=== PATIENT | male | born 1955 | race Caucasian/White ===

== ENCOUNTER 2017-01-18 21:05 | Emergency (ER) | payer MEDICARE, OTHER ==
[2017-01-18 21:20] VITALS: BP 129/87
[2017-01-18] MEDS ORDERED: Sodium Chloride 0.9% 1,000 ML IV SCH (21:30)
[2017-01-18] MEDS ORDERED: HYDROmorphone 1 MG/ML Syringe IVPUSH ONE (21:30)
--- NOTE | 2017-01-18 22:01 | EDM.PDOC ---
ED HPI GENERAL MEDICAL PROBLEM - General Chief Complaint: Abdominal Pain Stated Complaint: ABD PAIN Time Seen by Provider: 01/18/17 21:25 Source of Information: Reports: Patient, Family History Limitations: Reports: No Limitations - History of Present Illness INITIAL COMMENTS - FREE TEXT/NARRATIVE: 61-year-old male with chronic recurring abdominal pain was seen in the clinic today and placed on amoxicillin for "bronchitis". After taking his first dose his abdominal pain worsened. It is very localized to the epigastric area. Nausea but no vomiting, no fevers or chills, no shortness of breath. He has had numerous extensive workups for abdominal pain and had been negative. Onset: Gradual (Over the past several days) Location: Reports: Abdomen Quality: Reports: Pressure, Sharp Severity: Moderate Worsens with: Reports: Other (Seems to be worse after taking a dose of amoxicillin) Associated Symptoms: Denies: Fever/Chills Upper Epigastric Pain Score (Numeric/FACES): 10 - Related Data Allergies Allergy/AdvReac Type Severity Reaction Status Date / Time doxycycline AdvReac Nausea and Verified 01/18/17 22:26 Vomiting Home Meds: Home Meds Clopidogrel [Plavix] 75 mg PO DAILY 04/16/15 [History] Escitalopram [Lexapro] 10 mg PO DAILY 04/16/15 [History] Lisinopril 10 mg PO DAILY 04/16/15 [History] Metoprolol Succinate [Toprol XL] 50 mg PO DAILY 04/16/15 [History] Nitroglycerin [Nitrostat] 0.4 mg SL ASDIRECTED 04/16/15 [History] Simvastatin [Zocor] 40 mg PO DAILY 04/16/15 [History] Ondansetron [Zofran ODT] 4 mg PO Q6H PRN #10 tab.dis 07/23/16 [Rx] Amoxicillin/Clavulanate K [Augmentin 875-125 MG] 1 tab PO BID 01/18/17 [History] Past Medical History Other HEENT History: tinnitus Cardiovascular History: Reports: Hypertension, [place], Stents Other Gastrointestinal History: Abd pain - unkown etiology- related to eating started in 80s started with salad bar, little blood when poops occasionally Musculoskeletal History: Reports: Fracture Other Musculoskeletal History: wrist Neurological History: Reports: CVA Other Neuro History: cerebroangioplasty with stent Other Psychiatric History: smokes, uses pot - Infectious Disease History Infectious Disease History: Reports: Chicken Pox - Past Surgical History Cardiovascular Surgical History: Reports: Coronary Artery Stent Social & Family History - Tobacco Use Smoking Status *Q: Current Every Day Smoker Years of Tobacco use: 40 Packs/Tins Daily: 0.5 Used Tobacco, but Quit: No Second Hand Smoke Exposure: Yes - Caffeine Use Caffeine Use: Reports: None - Alcohol Use Days Per Week of Alcohol Use: 0 - Recreational Drug Use Recreational Drug Use: No Drug Use in Last 12 Months: No Recreational Drug Type: Reports: Marijuana/Hashish Recreational Drug Use Frequency: Monthly ED ROS GENERAL - Review of Systems Review Of Systems: See Below Constitutional: Reports: Malaise. Denies: Fever, Chills Respiratory: Reports: Cough Cardiovascular: Denies: Chest Pain GI/Abdominal: Reports: Abdominal Pain, Nausea. Denies: Diarrhea, Vomiting : Reports: No Symptoms Musculoskeletal: Reports: No Symptoms Skin: Reports: No Symptoms Neurological: Denies: Dizziness, Headache ED EXAM, GI/ABD - Physical Exam Exam: See Below Exam Limited By: No Limitations General Appearance: Alert, Anxious Eyes: Bilateral: Normal Appearance Respiratory/Chest: No Respiratory Distress, Lungs Clear Cardiovascular: Regular Rate, Rhythm GI/Abdominal: Soft, Tenderness (Tenderness with some slight guarding in the epigastric area. Patient does seem hyperdramatic.) Course - Vital Signs Last Recorded V/S: Last Vital Signs Temp 97.9 F 01/18/17 22:27 Pulse 65 01/18/17 22:27 Resp 20 01/18/17 22:27 BP 129/87 01/18/17 22:27 Pulse Ox 94 L 01/18/17 22:27 - Orders/Labs/Meds Orders: Active Orders 24 hr Category Date Time Status Sodium Chloride 0.9% [Normal Saline] 1,000 ml Med 01/18/17 21:30 Active IV ASDIRECTED Medication Orders Sodium Chloride (Normal Saline) 1,000 mls @ 1,000 mls/hr IV ASDIRECTED AVRIL Last Admin: 01/18/17 21:35 Dose: 1,000 mls/hr Labs: Laboratory Tests 01/18/17 01/18/17 Range/Units 21:40 21:40 WBC 19.9 H (4.5-11.0) K/uL RBC 5.56 (4.30-5.90) M/uL Hgb 17.9 H (12.0-15.0) g/dL Hct 51.2 (40.0-54.0) % MCV 92 (80-98) fL MCH 32 H (27-31) pg MCHC 35 (32-36) % Plt Count 276 (150-400) K/uL Neut % (Auto) 91 H (36-66) % Lymph % (Auto) 5 L (24-44) % [place] % (Auto) 3 (2-6) % Eos % (Auto) 0 L (2-4) % Baso % (Auto) 0 (0-1) % Sodium 132 L (140-148) mmol/L Potassium 4.5 (3.6-5.2) mmol/L Chloride 97 L (100-108) mmol/L Carbon Dioxide 19 L (21-32) mmol/L Anion Gap 16.0 H (5.0-14.0) mmol/L BUN 54 H D (7-18) mg/dL Creatinine 3.0 H D (0.8-1.3) mg/dL Est Cr Clr Drug Dosing 27.38 mL/min Estimated GFR (MDRD) 22 L (>60) Glucose 196 H (74-106) mg/dL Calcium 9.8 (8.5-10.1) mg/dL Total Bilirubin 0.6 (0.2-1.0) mg/dL AST 25 (15-37) U/L ALT 32 (12-78) U/L Alkaline Phosphatase 72 (46-116) U/L Total Protein 9.6 H (6.4-8.2) g/dL Albumin 4.9 (3.4-5.0) g/dL Globulin 4.7 H (2.3-3.5) g/dL Albumin/Globulin Ratio 1.0 L (1.2-2.2) Amylase 50 (25-115) U/L Lipase 104 (73-393) U/L Meds: Medications Generic Name Dose Route Start Last Admin Trade Name Freq PRN Reason Stop Dose Admin Sodium Chloride 1,000 mls @ 1,000 mls/hr 01/18/17 21:30 01/18/17 21:35 Normal Saline IV 1,000 mls/hr ASDIRECTED AVRIL Administration Discontinued Medications Generic Name Dose Route Start Last Admin Trade Name Freq PRN Reason Stop Dose Admin Hydromorphone HCl 1 mg 01/18/17 21:30 01/18/17 21:39 Dilaudid IVPUSH 01/18/17 21:31 1 mg ONETIME ONE Administration - Re-Assessments/Exams Free Text/Narrative Re-Assessment/Exam: 01/18/17 22:00 An IV was started for a 1 L bolus of normal saline, patient was given 0.5 mg of Dilaudid IV. CBC, CMP, amylase and lipase were obtained. 01/18/17 23:25 After the IV fluid and Dilaudid for pain resolved. His white count is elevated at 19,000 but the clinic level this morning was 24,000. Creatinine was 3.0 and GFR 22. Past renal function has been normal. He was discharged with instructions to call his primary provider tomorrow to ask whether it was necessary to continue the Augmentin. I also think he should push fluids and recheck his kidney function in 2-4 days. He can return sooner if worsening. Departure - Departure Time of Disposition: 23:25 Disposition: Home, Self-Care 01 Condition: good Clinical Impression: Abdominal pain Qualifiers: Abdominal location: epigastric Qualified Code(s): R10.13 - Epigastric pain - Discharge Information Instructions: Abdominal Pain, Adult, [id number] Referrals: Tashi Person PA [Primary Care Provider] - Forms: ED Department Discharge Care Plan Goals: Call the clinic tomorrow morning to discuss with your primary provider whether to continue the antibiotics. Drink lots of water and he will probably need reevaluation of your kidney function later this week. That can be also set up with her primary provider. Return to ER if worsening or concerns. - My Orders Last 24 Hours: My Active Orders 01/18/17 21:30 Sodium Chloride 0.9% [Normal Saline] 1,000 ml IV ASDIRECTED - Assessment/Plan Last 24 Hours: My Active Orders 01/18/17 21:30 Sodium Chloride 0.9% [Normal Saline] 1,000 ml IV ASDIRECTED
== END 2017-01-18 23:25 | disposition home or self-care (01) ==
LOC: JP.ED 21:05
DX: R10.13 Epigastric pain (principal); I25.2 Old myocardial infarction; I10 Essential (primary) hypertension; F17.210 Nicotine dependence, cigarettes, uncomplicated; Z95.5 Presence of coronary angioplasty implant and graft; Z88.1 Allergy status to other antibiotic agents; Z79.02 Long term (current) use of antithrombotics/antiplatelets; Z79.899 Other long term (current) drug therapy
CPT/HCPCS: 36415; 80053; 82150; 83690; 85025; 96361; 96374; 99284; J1170; J7040

== ENCOUNTER 2017-01-19 10:34 | Emergency (ER) | payer MEDICARE, OTHER ==
[2017-01-19] MEDS ORDERED: Lactated Ringers 1,000 ML IV ONE (10:42)
[2017-01-19] MEDS ORDERED: HYDROmorphone 1 MG/ML Syringe IVPUSH ONE (10:42)
[2017-01-19] MEDS ORDERED: Sodium Chloride 0.9% 10 ML Syringe FLUSH PRN (10:44)
[2017-01-19] MEDS ORDERED: Ondansetron 4 MG/2 ML SDV IVPUSH ONE (10:44)
--- NOTE | 2017-01-19 11:44 | EDM.PDOC ---
[id number] Complaint: Abdominal Pain Stated Complaint: ABDOMINAL PAIN Time Seen by Provider: 01/19/17 10:44 Source of Information: Reports: Patient, Family, Old Records, RN Notes Reviewed History Limitations: Reports: No Limitations - History of Present Illness INITIAL COMMENTS - FREE TEXT/NARRATIVE: 61-year-old gentleman presents emergency department day complaint of epigastric pain, he states the pain come on suddenly at 5:00 this morning. He also complains of shortness of breath. he states he was into his primary care provider complaints of chest congestion and shortness of breath concern for development of pneumonia does have a smoking history. Was started on Augmentin took one dose of Augmentin developed severe epigastric pain reported to the emergency department last night underwent blood work received 1 mg of Dilaudid and became pain-free. For this particular event he returns for the same pain Epigastric Pain Score (Numeric/FACES): 9 - Related Data Allergies Allergy/AdvReac Type Severity Reaction Status Date / Time doxycycline AdvReac Nausea and Verified 01/18/17 22:26 Vomiting Home Meds: Home Meds Clopidogrel [Plavix] 75 mg PO DAILY 04/16/15 [History] Escitalopram [Lexapro] 10 mg PO DAILY 04/16/15 [History] Lisinopril 10 mg PO DAILY 04/16/15 [History] Metoprolol Succinate [Toprol XL] 50 mg PO DAILY 04/16/15 [History] Nitroglycerin [Nitrostat] 0.4 mg SL ASDIRECTED 04/16/15 [History] Simvastatin [Zocor] 40 mg PO DAILY 04/16/15 [History] Ondansetron [Zofran ODT] 4 mg PO Q6H PRN #10 tab.dis 07/23/16 [Rx] Levofloxacin [Levaquin] 500 mg PO DAILY 01/20/17 [History] oxyCODONE HCl/Acetaminophen [oxyCODONE-Acetaminophen 5-325] 1 tab PO Q6HR PRN [History] Pantoprazole Sodium [Protonix] 40 mg PO BID #30 tablet. 01/22/17 [Rx] Past Medical History Other HEENT History: tinnitus Cardiovascular History: Reports: Hypertension, [place], Stents Other Gastrointestinal History: Abd pain - unkown etiology- related to eating started in 80s started with salad bar, little blood when poops occasionally Musculoskeletal History: Reports: Fracture Other Musculoskeletal History: wrist Neurological History: Reports: CVA Other Neuro History: cerebroangioplasty with stent Psychiatric History: Reports: Anxiety Other Psychiatric History: smokes, uses pot - Infectious Disease History Infectious Disease History: Reports: Chicken Pox, Measles, Mumps - Past Surgical History Cardiovascular Surgical History: Reports: Coronary Artery Stent Social & Family History - Tobacco Use Smoking Status *Q: Current Every Day Smoker Years of Tobacco use: 40 Packs/Tins Daily: 0.3 Used Tobacco, but Quit: No Second Hand Smoke Exposure: Yes - Caffeine Use Caffeine Use: Reports: Coffee - Alcohol Use Days Per Week of Alcohol Use: 1 Number of Drinks Per Day: 2 Total Drinks Per Week: 2 - Recreational Drug Use Recreational Drug Use: No Drug Use in Last 12 Months: No Recreational Drug Type: Reports: Marijuana/Hashish Recreational Drug Use Frequency: Monthly ED ROS GENERAL - Review of Systems Review Of Systems: See Below Constitutional: Reports: No Symptoms HEENT: Reports: No Symptoms Respiratory: Reports: Shortness of Breath Cardiovascular: Reports: No Symptoms GI/Abdominal: Reports: Abdominal Pain. Denies: Nausea, Vomiting : Reports: No Symptoms Musculoskeletal: Reports: No Symptoms Skin: Reports: No Symptoms Neurological: Reports: No Symptoms ED EXAM, GI/ABD - Physical Exam Exam: See Below Exam Limited By: No Limitations General Appearance: Alert, WD/WN, No Apparent Distress Head: Atraumatic, Normocephalic Neck: Normal Inspection, Supple, Non-Tender, Full Range of Motion Respiratory/Chest: No Respiratory Distress, No Accessory Muscle Use, Chest Non- Tender, Rhonchi Cardiovascular: Regular Rate, Rhythm, No Murmur GI/Abdominal: Soft, Tenderness Course - Vital Signs Last Recorded V/S: Last Vital Signs Temp 36.3 C 01/19/17 14:18 Pulse 66 01/19/17 17:07 Resp 16 01/19/17 17:07 BP 105/66 01/19/17 17:07 Pulse Ox 93 L 01/19/17 17:07 - Orders/Labs/Meds Labs: Laboratory Tests 01/19/17 01/19/17 01/19/17 Range/Units 10:58 10:58 10:58 WBC (4.5-11.0) K/uL RBC (4.30-5.90) M/uL Hgb (12.0-15.0) g/dL Hct (40.0-54.0) % MCV (80-98) fL MCH (27-31) pg MCHC (32-36) % Plt Count (150-400) K/uL Neut % (Auto) (36-66) % Lymph % (Auto) (24-44) % [place] % (Auto) (2-6) % Eos % (Auto) (2-4) % Baso % (Auto) (0-1) % Sodium 132 L (140-148) mmol/L Potassium 3.9 (3.6-5.2) mmol/L Chloride 99 L (100-108) mmol/L Carbon Dioxide 17 L (21-32) mmol/L Anion Gap 19.9 H (5.0-14.0) mmol/L BUN 46 H (7-18) mg/dL Creatinine 1.6 H (0.8-1.3) mg/dL Est Cr Clr Drug Dosing 51.45 mL/min Estimated GFR (MDRD) 44 L (>60) Glucose 135 H (74-106) mg/dL Lactic Acid 1.9 (0.4-2.0) mmol/L Calcium 9.1 (8.5-10.1) mg/dL Total Bilirubin 0.6 (0.2-1.0) mg/dL AST 25 (15-37) U/L ALT 28 (12-78) U/L Alkaline Phosphatase 61 (46-116) U/L Troponin I (0.000-0.056) ng/mL [id number] Pept (5-125) pg/mL Total Protein 8.5 H (6.4-8.2) g/dL Albumin 4.2 (3.4-5.0) g/dL Globulin 4.3 H (2.3-3.5) g/dL Albumin/Globulin Ratio 1.0 L (1.2-2.2) Lipase 99 (73-393) U/L 01/19/17 01/19/17 01/19/17 Range/Units 10:58 11:34 11:40 WBC 23.3 H (4.5-11.0) K/uL RBC 5.31 (4.30-5.90) M/uL Hgb 17.4 H (12.0-15.0) g/dL Hct 49.2 (40.0-54.0) % MCV 93 (80-98) fL MCH 33 H (27-31) pg MCHC 35 (32-36) % Plt Count 251 (150-400) K/uL Neut % (Auto) 81 H (36-66) % Lymph % (Auto) 9 L (24-44) % [place] % (Auto) 10 H (2-6) % Eos % (Auto) 0 L (2-4) % Baso % (Auto) 1 (0-1) % Sodium (140-148) mmol/L Potassium (3.6-5.2) mmol/L Chloride (100-108) mmol/L Carbon Dioxide (21-32) mmol/L Anion Gap (5.0-14.0) mmol/L BUN (7-18) mg/dL Creatinine (0.8-1.3) mg/dL Est Cr Clr Drug Dosing mL/min Estimated GFR (MDRD) (>60) Glucose (74-106) mg/dL Lactic Acid (0.4-2.0) mmol/L Calcium (8.5-10.1) mg/dL Total Bilirubin (0.2-1.0) mg/dL AST (15-37) U/L ALT (12-78) U/L Alkaline Phosphatase (46-116) U/L Troponin I < 0.017 (0.000-0.056) ng/mL [id number] Pept 642 H (5-125) pg/mL Total Protein (6.4-8.2) g/dL Albumin (3.4-5.0) g/dL Globulin (2.3-3.5) g/dL Albumin/Globulin Ratio (1.2-2.2) Lipase (73-393) U/L Meds: Medications Discontinued Medications Generic Name Dose Route Start Last Admin Trade Name Freq PRN Reason Stop Dose Admin Hydromorphone HCl 1 mg 01/19/17 10:42 01/19/17 10:51 Dilaudid IVPUSH 01/19/17 10:43 1 mg ONETIME ONE Administration Lactated Ringer's 1,000 mls @ 999 mls/hr 01/19/17 10:42 01/19/17 10:45 Ringers, Lactated IV 01/19/17 11:42 999 mls/hr BOLUS ONE Administration Sodium Chloride 1,000 mls @ 100 mls/hr 01/19/17 14:45 01/19/17 14:56 Normal Saline IV 100 mls/hr ASDIRECTED AVRIL Administration Ceftriaxone Sodium 1 gm/ 50 mls @ 100 mls/hr 01/19/17 14:38 01/19/17 14:57 Sodium Chloride IV 01/19/17 15:07 100 mls/hr ONETIME ONE Administration Levofloxacin 500 mg 01/19/17 15:00 01/19/17 15:01 Levaquin PO 01/19/17 15:01 500 mg ONETIME ONE Administration Ondansetron HCl 4 mg 01/19/17 10:44 01/19/17 10:48 Zofran IVPUSH 01/19/17 10:45 4 mg ONETIME ONE Administration Sodium Chloride 10 ml 01/19/17 10:44 01/19/17 10:56 Saline Flush FLUSH 10 ml ASDIRECTED PRN Administration Keep Vein Open Departure - Departure Disposition: Home, Self-Care 01 Clinical Impression: Left lower lobe pneumonia Qualifiers: Pneumonia type: due to unspecified organism Qualified Code(s): J18.1 - Lobar pneumonia, unspecified organism - Discharge Information Instructions: Community-Acquired Pneumonia, Adult Referrals: Tashi Person PA [Primary Care Provider] - Forms: ED Department Discharge Care Plan Goals: push fluids, rtc tomorrow for rocephen 1 gm, levoquin 500mg daily, tyenol and motri for body aches and fever. If pt should develop severe abdomanal pain use percocet 5/325 q 6h prn for pain. l <Chelsy Weinstein - Last Filed: 01/22/17 21:03> Course - Re-Assessments/Exams Free Text/Narrative Re-Assessment/Exam: 01/19/17 14:43 CAT SCAN OF THE CHEST SHOWED INFILTRATE IN THE LEFT LOWER POST LOBE. eVERYTHING ELSE WAS NEG. tHERE WAS NO FREE AIR. hE FEELS HE SHOULD NOT TAKE THE AUGMENTIN AT THIS TIME. WILL GIVE ROCEPHEN 1 GM IV AND LEVOQUIN 500MG . 01/19/17 16:39 pt has had no further problems with abdomanal pain. He has had fluids going at 100cc and he was given levoquin po and iv rocephen, Departure - Departure Time of Disposition: 16:41 Condition: fair
--- NOTE | 2017-01-19 14:17 | CT ---
Chest wo Cont HISTORY: sob, fever, epigastric pain Axial spiral noncontrasted CT scan of the chest was obtained along with coronal and MIP reconstructi ons. FINDINGS: There is a small area of peripheral atelectasis or consolidation posterior left lower lobe centered on axial image 87. There are mild dependent atelectasis is also noted right lower lobe pos teriorly. Remainder the chest is clear. Heart size is within normal limits. Coronary artery stent is noted in the left anterior descending a rtery. I see no hilar or mediastinal mass or adenopathy. There is minimal atherosclerotic calcificat ion aortic arch. No pleural fluid or chest wall abnormality is seen. Visualized upper abdominal stru ctures are unremarkable. IMPRESSION: Small patchy area of infiltrate or atelectasis posterior left lower lobe. No other acute chest abnormality is identified. Report was called to Dr. Weinstein in the Emergency Department at 1415 hours. Total DLP 308 mGycm
[2017-01-19] MEDS ORDERED: cefTRIAXone 1 GM in Sodium Chloride 0.9% 50 ML IV ONE (14:38)
[2017-01-19] MEDS ORDERED: Levofloxacin 250 MG Tab PO ONE (14:42)
[2017-01-19] MEDS ORDERED: Sodium Chloride 0.9% 1,000 ML IV SCH (14:45)
[2017-01-19] MEDS ORDERED: Levofloxacin 500 MG Tab PO ONE (15:00)
[2017-01-19 17:08] VITALS: BP 105/66
== END 2017-01-19 17:11 | disposition home or self-care (01) ==
LOC: JP.ED 10:34
DX: J18.9 Pneumonia, unspecified organism (principal); I25.2 Old myocardial infarction; I10 Essential (primary) hypertension; F17.210 Nicotine dependence, cigarettes, uncomplicated; F41.9 Anxiety disorder, unspecified; Z88.8 Allergy status to other drugs, medicaments and biological substances; Z79.899 Other long term (current) drug therapy; Z86.73 Personal history of transient ischemic attack (TIA), and cerebral infarction without residual deficits; Z95.5 Presence of coronary angioplasty implant and graft
CPT/HCPCS: 36415; 71250; 80053; 83605; 83690; 83880; 84484; 85025; 96361; 96365; 96375; 99284; A9270; J0696; J1170; J2405; J7040; J7050; J7120

== ENCOUNTER 2017-01-20 14:01 | Inpatient (IN) | payer MEDICARE, OTHER ==
[2017-01-20] MEDS ORDERED: LORazepam 2 MG/ML MDV IVPUSH ONE (14:29)
[2017-01-20] MEDS ORDERED: Alum Hydrox/Mag Hydrox/Simeth 15 ML, Lidocaine 2% 15 ML PO ONE ×2 (14:29)
[2017-01-20] MEDS ORDERED: cefTRIAXone 1 GM in Sodium Chloride 0.9% 50 ML IV ONE (15:09)
[2017-01-20] MEDS ORDERED: Pantoprazole 40 MG Vial IVPUSH ONE (15:41)
--- NOTE | 2017-01-20 16:30 | EDM.PDOC ---
ED HPI GENERAL MEDICAL PROBLEM - General Chief Complaint: Abdominal Pain Stated Complaint: ABDOMINAL PAIN Time Seen by Provider: 01/20/17 15:01 Source of Information: Reports: Patient, Family, Old Records, RN Notes Reviewed History Limitations: Reports: No Limitations - History of Present Illness INITIAL COMMENTS - FREE TEXT/NARRATIVE: 61-year-old gentleman presents emergency department day complaint of abdominal pain, this is his third visit to the emergency department for the same complaint he underwent a CT scan yesterday which showed a pneumonia he has received 1 g Rocephin 1 dose of levofloxacin. He does admit to being under a lot of stress he left the emergency department yesterday was pain free however the pain progressively got worse tonight he does have pain medication at home he states only helped for a little bit, pain and return today he reports the emergency department for further treatment abdomin Pain Score (Numeric/FACES): 2 - Related Data Allergies Allergy/AdvReac Type Severity Reaction Status Date / Time doxycycline AdvReac Nausea and Verified 01/18/17 22:26 Vomiting Home Meds: Home Meds Clopidogrel [Plavix] 75 mg PO DAILY 04/16/15 [History] Escitalopram [Lexapro] 10 mg PO DAILY 04/16/15 [History] Lisinopril 10 mg PO DAILY 04/16/15 [History] Metoprolol Succinate [Toprol XL] 50 mg PO DAILY 04/16/15 [History] Nitroglycerin [Nitrostat] 0.4 mg SL ASDIRECTED 04/16/15 [History] Simvastatin [Zocor] 40 mg PO DAILY 04/16/15 [History] Ondansetron [Zofran ODT] 4 mg PO Q6H PRN #10 tab.dis 07/23/16 [Rx] Levofloxacin [Levaquin] 500 mg PO DAILY 01/20/17 [History] oxyCODONE HCl/Acetaminophen [oxyCODONE-Acetaminophen 5-325] 1 tab PO Q6HR PRN [History] Past Medical History Other HEENT History: tinnitus Cardiovascular History: Reports: Hypertension, [place], Stents Other Gastrointestinal History: Abd pain - unkown etiology- related to eating started in 80s started with salad bar, little blood when poops occasionally Musculoskeletal History: Reports: Fracture Other Musculoskeletal History: wrist Neurological History: Reports: CVA Other Neuro History: cerebroangioplasty with stent Psychiatric History: Reports: Anxiety Other Psychiatric History: smokes, uses pot - Infectious Disease History Infectious Disease History: Reports: Chicken Pox, Measles, Mumps - Past Surgical History Cardiovascular Surgical History: Reports: Coronary Artery Stent Social & Family History - Tobacco Use Smoking Status *Q: Current Every Day Smoker Years of Tobacco use: 40 Packs/Tins Daily: 0.3 Used Tobacco, but Quit: No Second Hand Smoke Exposure: Yes - Caffeine Use Caffeine Use: Reports: Coffee - Alcohol Use Days Per Week of Alcohol Use: 1 Number of Drinks Per Day: 2 Total Drinks Per Week: 2 - Recreational Drug Use Recreational Drug Use: No Drug Use in Last 12 Months: No Recreational Drug Type: Reports: Marijuana/Hashish Recreational Drug Use Frequency: Monthly ED ROS GENERAL - Review of Systems Review Of Systems: See Below Respiratory: Reports: Cough Cardiovascular: Reports: No Symptoms GI/Abdominal: Reports: Abdominal Pain, Nausea. Denies: Vomiting : Reports: No Symptoms Musculoskeletal: Reports: No Symptoms Skin: Reports: No Symptoms ED EXAM, GENERAL - Physical Exam Exam: See Below Exam Limited By: No Limitations General Appearance: Alert, WD/WN, No Apparent Distress Respiratory/Chest: No Respiratory Distress, Lungs Clear, Normal Breath Sounds, No Accessory Muscle Use Cardiovascular: Regular Rate, Rhythm, No Murmur Course - Vital Signs Last Recorded V/S: Last Vital Signs Temp 95.6 F 01/20/17 14:09 Pulse 69 01/20/17 16:00 Resp 16 01/20/17 16:00 BP 151/93 H 01/20/17 16:00 Pulse Ox 94 L 01/20/17 16:00 - Orders/Labs/Meds Labs: Laboratory Tests 01/20/17 01/20/17 01/20/17 Range/Units 15:41 15:41 15:41 WBC 13.8 H (4.5-11.0) K/uL RBC 5.15 (4.30-5.90) M/uL Hgb 16.6 H (12.0-15.0) g/dL Hct 48.0 (40.0-54.0) % MCV 93 (80-98) fL MCH 32 H (27-31) pg MCHC 35 (32-36) % Plt Count 242 (150-400) K/uL Neut % (Auto) 69 H (36-66) % Lymph % (Auto) 19 L (24-44) % [place] % (Auto) 11 H (2-6) % Eos % (Auto) 0 L (2-4) % Baso % (Auto) 0 (0-1) % Sodium 135 L (140-148) mmol/L Potassium 4.1 (3.6-5.2) mmol/L Chloride 100 (100-108) mmol/L Carbon Dioxide 21 (21-32) mmol/L Anion Gap 18.1 H (5.0-14.0) mmol/L BUN 24 H (7-18) mg/dL Creatinine 1.0 (0.8-1.3) mg/dL Est Cr Clr Drug Dosing TNP Estimated GFR (MDRD) > 60 (>60) Glucose 118 H (74-106) mg/dL Calcium 8.7 (8.5-10.1) mg/dL Troponin I 0.017 (0.000-0.056) ng/mL Meds: Medications Discontinued Medications Generic Name Dose Route Start Last Admin Trade Name Jeffryq PRN Reason Stop Dose Admin Al Hydroxide/Mg Hydroxide 15 0 ml 01/20/17 14:29 01/20/17 15:04 ml/ Lidocaine HCl 15 ml PO 01/20/17 14:30 15 ml ONETIME ONE Administration Ceftriaxone Sodium 1 gm/ 50 mls @ 100 mls/hr 01/20/17 15:09 01/20/17 15:23 Sodium Chloride IV 01/20/17 15:38 100 mls/hr ONETIME ONE Administration Lorazepam 1 mg 01/20/17 14:29 01/20/17 14:36 Ativan IVPUSH 01/20/17 14:30 1 mg ONETIME ONE Administration Pantoprazole Sodium 40 mg 01/20/17 15:41 01/20/17 15:57 Protonix Iv IVPUSH 01/20/17 15:42 40 mg ONETIME ONE Administration Departure - Departure Time of Disposition: 16:41 Disposition: Admitted As Inpatient 68 Condition: good Clinical Impression: Abdominal pain Qualifiers: Abdominal location: epigastric Qualified Code(s): R10.13 - Epigastric pain Left lower lobe pneumonia Qualifiers: Pneumonia type: due to unspecified organism Qualified Code(s): J18.1 - Lobar pneumonia, unspecified organism - Discharge Information Forms: ED Department Discharge - Assessment/Plan Plan: Assessment Acuity = acute Site and laterality = community-acquired pneumonia with probable gastritis consultation the patient with known history coronary artery disease Etiology = suspicious for bacterial cause for the pneumonia gastritis unclear etiology Manifestations = abdominal pain recurrent Location of injury = home Lab values = WBC elevated at 13.8 consistent leukocytosis sodium low at 135 consistent hyponatremia troponin is negative Plan He had good relief with 1 mg Ativan and a GI cocktail, called discussed case with hospitalist singer songwriter he agreed to come and evaluate the patient ED for admission and further evaluation Patient was in agreement with the plan all questions were answered This note was dictated using [employer]reader voice recognition software please call with any questions.
--- NOTE | 2017-01-20 17:01 | PCM.HP ---
H&P History of Present Illness - General Date of Service: 01/20/17 Admit Problem/Dx: Source of Information: Patient, Family, Old Records, Provider, RN Notes Reviewed History Limitations: Reports: No Limitations - History of Present Illness Initial Comments - Free Text/Narative: This patient is a 61-year-old gentleman who is admitted through the emergency department for further management and evaluation of pneumonia as well as severe epigastric abdominal pain. He has not felt well over the past 6 days, initially developed fever, chills, mild shortness of breath, and chest congestion. Within a few days of onset of those symptoms of developed intermittent episodes of severe epigastric abdominal pain. Abdominal pain has been associated with nausea and is described as an intense sharp ache or pain. Pain does not radiate and definitely becomes worse when he attempts to eat. He is noted no other precipitating or relieving factors. Initially he was seen and evaluated in the clinic 2 days ago and felt to have bronchitis, at that time he was started on oral antibiotic therapy with amoxicillin. Pain became significantly worse after taking the amoxicillin he was seen and evaluated in the emergency department, no specific etiology was identified and he was discharged home. Urine presented to the emergency department yesterday and because of ongoing respiratory symptoms CT scan of the chest was obtained. CT scan showed evidence of infiltrate consistent with pneumonia. His abdominal pain improved while he was in the emergency department and he was treated with IV levofloxacin and Rocephin. He presented to the emergency department today because of ongoing respiratory symptoms and recurrent severe epigastric pain. His white blood cell count is improved from yesterday and troponin level remains normal. abdomin Pain Score (Numeric/FACES): 2 - Related Data Allergies/Adverse Reactions: Allergies Allergy/AdvReac Type Severity Reaction Status Date / Time doxycycline AdvReac Nausea and Verified 01/18/17 22:26 Vomiting Home Medications: Home Meds Clopidogrel [Plavix] 75 mg PO DAILY 04/16/15 [History] Escitalopram [Lexapro] 10 mg PO DAILY 04/16/15 [History] Lisinopril 10 mg PO DAILY 04/16/15 [History] Metoprolol Succinate [Toprol XL] 50 mg PO DAILY 04/16/15 [History] Nitroglycerin [Nitrostat] 0.4 mg SL ASDIRECTED 04/16/15 [History] Simvastatin [Zocor] 40 mg PO DAILY 04/16/15 [History] Ondansetron [Zofran ODT] 4 mg PO Q6H PRN #10 tab.dis 07/23/16 [Rx] Levofloxacin [Levaquin] 500 mg PO DAILY 01/20/17 [History] oxyCODONE HCl/Acetaminophen [oxyCODONE-Acetaminophen 5-325] 1 tab PO Q6HR PRN [History] Past Medical History Other HEENT History: tinnitus Cardiovascular History: Reports: Hypertension, [place], Stents Other Gastrointestinal History: Abd pain - unkown etiology- related to eating started in 80s started with salad bar, little blood when poops occasionally Musculoskeletal History: Reports: Fracture Other Musculoskeletal History: wrist Neurological History: Reports: CVA Other Neuro History: cerebroangioplasty with stent Psychiatric History: Reports: Anxiety Other Psychiatric History: smokes, uses pot - Infectious Disease History Infectious Disease History: Reports: Chicken Pox, Measles, Mumps - Past Surgical History Cardiovascular Surgical History: Reports: Coronary Artery Stent Social & Family History - Tobacco Use Smoking Status *Q: Current Every Day Smoker Years of Tobacco use: 40 Packs/Tins Daily: 0.3 Used Tobacco, but Quit: No Second Hand Smoke Exposure: Yes - Caffeine Use Caffeine Use: Reports: Coffee - Alcohol Use Days Per Week of Alcohol Use: 1 Number of Drinks Per Day: 2 Total Drinks Per Week: 2 - Recreational Drug Use Recreational Drug Use: No Drug Use in Last 12 Months: No Recreational Drug Type: Reports: Marijuana/Hashish Recreational Drug Use Frequency: Monthly H&P Review of Systems - Review of Systems: Review Of Systems: See Below General: Reports: Fever, Chills, Weakness, Decreased Appetite HEENT: Reports: No Symptoms Pulmonary: Reports: Shortness of Breath, Cough. Denies: Sputum, Hemoptysis Cardiovascular: Reports: Dyspnea on Exertion. Denies: Chest Pain, Palpitations , Orthopnea, PND, Edema, Lightheadedness, Syncope Gastrointestinal: Reports: Abdominal Pain, Decreased Appetite, Nausea, Vomiting. Denies: Black Stool, Bloody Stool, Constipation, Diarrhea, Difficulty Swallowing, Distension Genitourinary: Reports: No Symptoms Musculoskeletal: Reports: No Symptoms Skin: Reports: No Symptoms Psychiatric: Reports: No Symptoms Neurological: Reports: No Symptoms Hematologic/Lymphatic: Reports: No Symptoms Immunologic: Reports: No Symptoms Exam - Exam Exam: See Below - Vital Signs Vital Signs: Last Vital Signs Temp 95.6 F 01/20/17 14:09 Pulse 69 01/20/17 16:00 Resp 16 01/20/17 16:00 BP 151/93 H 01/20/17 16:00 Pulse Ox 94 L 01/20/17 16:00 Weight: 178 lb 15.893 oz - Exam Quality Assessment: DVT Prophylaxis General: Alert, Oriented, Cooperative, Mild Distress HEENT: Conjunctiva Clear, EOMI, Hearing Intact, Mucosa Moist & [place], Nares Patent, Normal Nasal Septum, Posterior Pharynx Clear, Pupils Equal, Pupils Reactive Neck: Supple, Trachea Midline, +2 Carotid Pulse wo Bruit Lungs: Normal Respiratory Effort, Decreased Breath Sounds, Rhonchi. No: Wheezing Cardiovascular: Regular Rate, Regular Rhythm, Normal S1, Normal S2. No: Irregular Rhythm, Bradycardia, Tachycardia, Systolic Murmur, Diastolic Murmur Abdomen: Normal Bowel Sounds, Soft, Tenderness. No: Organomegaly, Peritoneal Signs, Distention, Guarding, Rigidity, Rebound Back Exam: Normal Inspection, Full Range of Motion, NT Extremities: 3, Normal Inspection, 10 Skin: Warm, Dry, Intact Neurological: Cranial Nerves Intact, Strength Equal Bilateral, Normal Speech, Normal Tone, Sensation Intact. No: Focal Deficit Neuro Extensive - Mental Status: Alert, Oriented x3, Normal Mood/Affect, Normal Cognition, Memory Intact - Patient Data Lab Results last 24 hrs: Laboratory Results - last 24 hr 01/20/17 01/20/17 01/20/17 Range/Units 15:41 15:41 15:41 WBC 13.8 H (4.5-11.0) K/uL RBC 5.15 (4.30-5.90) M/uL Hgb 16.6 H (12.0-15.0) g/dL Hct 48.0 (40.0-54.0) % MCV 93 (80-98) fL MCH 32 H (27-31) pg MCHC 35 (32-36) % Plt Count 242 (150-400) K/uL Neut % (Auto) 69 H (36-66) % Lymph % (Auto) 19 L (24-44) % [place] % (Auto) 11 H (2-6) % Eos % (Auto) 0 L (2-4) % Baso % (Auto) 0 (0-1) % Sodium 135 L (140-148) mmol/L Potassium 4.1 (3.6-5.2) mmol/L Chloride 100 (100-108) mmol/L Carbon Dioxide 21 (21-32) mmol/L Anion Gap 18.1 H (5.0-14.0) mmol/L BUN 24 H (7-18) mg/dL Creatinine 1.0 (0.8-1.3) mg/dL Est Cr Clr Drug Dosing TNP Estimated GFR (MDRD) > 60 (>60) Glucose 118 H (74-106) mg/dL Calcium 8.7 (8.5-10.1) mg/dL Troponin I 0.017 (0.000-0.056) ng/mL Result Diagrams: 01/20/17 15:41 01/20/17 15:41 *Q Meaningful Use (ADM) - VTE *Q VTE Criteria *Q: - VTE Risk Assess *Q Each Risk Factor Represents 1 Point: Age 41 - 59 years, Obesity (BMI greater than 30), Serious Lung Disease Including Pneumonia, Less than 1 Month Total Score 1 Point Risk Factors: 3 Each Risk Factor Represents 2 Points: None Total Score 2 Point Risk Factors: 0 Each Risk Factor Represents 3 Points: None Total Score 3 Point Risk Factors: 0 Each Risk Factor Represents 5 Points: None Total Score 5 Point Risk Factors: 0 Venous Thromboembolism Risk Factor Score *Q: 3 - Stroke *Q Stroke Criteria *Q: - AMI *Q AMI Criteria *Q: Problem List Initiated/Reviewed/Updated: Yes Orders Last 24hrs: Active Orders 24 hr Category Date Time Status Patient Status Manage Transfer [TRANSFER] Routine ADT 01/20/17 16:35 Ordered Cardiac Monitoring [RC] .As Directed Care 01/20/17 16:35 Ordered Resuscitation Status Routine Resus Stat 01/20/17 16:38 Ordered Assessment/Plan Comment:: ASSESSMENT AND PLAN LEFT LUNG PNEUMONIA-small area of infiltrate noted in the left lung on CT scan yesterday. He is already been started on IV antibiotic therapy with levofloxacin and Rocephin. -Levofloxacin 750 mg IV daily -Supplemental oxygen as needed SEVERE EPIGASTRIC ABDOMINAL PAIN-likely secondary to underlying gastritis or esophagitis. Symptoms are definitely brought on by any, no other precipitating factors identified -Pain medication as needed -IV fluids for hydration -Antiemetic therapy as needed -Protonix 40 mg IV every 12 hours -GI cocktail every 4 hours as needed -Clear liquid diet -N.p.o. after midnight -Consult Dr. Terrell for EGD in the a.m. CORONARY ARTERY DISEASE-troponin levels have been normal over the past 2 days -Continue outpatient medical regimen CEREBROVASCULAR DISEASE-denies new neurologic symptoms -Continue outpatient medical regimen MAINTENANCE ISSUES -DVT prophylaxis; Lovenox 40 mg subcutaneous daily -GI prophylaxis; Protonix as above -Osborn catheter; not indicated -Nutrition; clear liquid diet, n.p.o. after midnight -Nicotine dependence; not required CODE STATUS-FULL CODE ADMISSION STATUS-patient will be admitted to inpatient status, expect at least a 2 night hospital stay for evaluation and management of problems as outlined above. At the time of this admission I do not reasonably expected evaluation and management of this problem will require more than a 96 hour hospital stay. DISPOSITION-anticipate discharge to home after the hospital stay. PRIMARY CARE PROVIDER-Tashi Molina
[2017-01-20] MEDS ORDERED: LORazepam 2 MG/ML MDV IVPUSH PRN (17:26)
[2017-01-20] MEDS ORDERED: Acetaminophen 325 MG Tab PO PRN (17:26)
[2017-01-20] MEDS ORDERED: Polyethylene Glycol 3350 Powder 17 GM Packet PO PRN (17:26)
[2017-01-20] MEDS ORDERED: Magnesium Hydroxide 400 MG/5 ML Susp 30 ML Cup PO PRN (17:26)
[2017-01-20] MEDS ORDERED: Ondansetron 4 MG/2 ML SDV IV PRN (17:26)
[2017-01-20] MEDS ORDERED: Nitroglycerin 0.4 MG Tab.SL SL SCH (17:26)
[2017-01-20] MEDS ORDERED: Lidocaine 2% 60 ML, Alum Hydrox/Mag Hydrox/Simeth 360 ML PO PRN ×2 (17:26)
[2017-01-20] MEDS ORDERED: Sodium Chloride 0.9% 10 ML Syringe FLUSH PRN (17:26)
[2017-01-20] MEDS ORDERED: HYDROmorphone 0.5 MG/0.5 ML Syringe IVPUSH PRN (17:26)
[2017-01-20] MEDS ORDERED: Levofloxacin/Dextrose 5%-Water 750 MG in Premix Bag 1 BAG IV SCH (17:26)
[2017-01-20] MEDS ORDERED: oxyCODONE 5 MG Tab PO PRN (17:26)
[2017-01-20] MEDS ORDERED: Albuterol 0.083% 2.5 MG/3 ML Neb Soln NEB PRN (17:26)
[2017-01-20] MEDS ORDERED: Docusate Sodium 100 MG Cap PO PRN (17:26)
[2017-01-20] MEDS ORDERED: Ondansetron 4 MG Tab.DIS PO PRN (17:26)
[2017-01-20] MEDS: Pantoprazole 40 MG Vial IV SCH (18:29)
[2017-01-20] MEDS: Sodium Chloride 0.9% 1,000 ML IV SCH (18:29)
[2017-01-20] MEDS: Albuterol/Ipratropium 3.0-0.5 MG/3 ML Neb Soln NEB SCH (22:25)
[2017-01-21] MEDS: Sodium Chloride 0.9% 1,000 ML IV SCH ×2 (03:39→11:27)
[2017-01-21] MEDS: Albuterol/Ipratropium 3.0-0.5 MG/3 ML Neb Soln NEB SCH ×4 (06:03→21:33)
[2017-01-21] MEDS: Pantoprazole 40 MG Vial IV SCH ×2 (06:03→18:01)
[2017-01-21] MEDS ORDERED: Metoprolol Succinate 25 MG Tab.ER PO SCH (09:00)
[2017-01-21] MEDS ORDERED: Simvastatin 20 MG Tab PO SCH (09:00)
[2017-01-21] MEDS ORDERED: Non-Formulary Medication 1 Each (Simvastatin [Zocor] 40 MG) PO SCH (09:00)
[2017-01-21] MEDS ORDERED: Lisinopril 5 MG Tab PO SCH (09:00)
[2017-01-21] MEDS ORDERED: Midazolam 1 MG/ML 2 ML SDV ONE (11:40)
[2017-01-21] MEDS ORDERED: fentaNYL 100 MCG/2 ML SDV ONE (11:40)
[2017-01-21] MEDS ORDERED: Propofol 200 MG/20 ML SDV ONE (11:40)
[2017-01-21] MEDS: Lisinopril 10 MG Tab PO SCH (12:58)
[2017-01-21] MEDS: Escitalopram 10 MG Tab PO SCH (12:59)
[2017-01-21] MEDS: Clopidogrel 75 MG Tab PO SCH (13:01)
[2017-01-21] MEDS: Enoxaparin 40 MG/0.4 ML Syringe SUBCUT SCH (13:02)
[2017-01-21] MEDS: Metoprolol Succinate 50 MG Tab.ER PO SCH (13:06)
--- NOTE | 2017-01-21 15:29 | PCM.PN ---
- General Info Date of Service: 01/21/17 Functional Status: Reports: pain controlled, tolerating diet, urinating - Review of Systems General: Reports: Weakness. Denies: Fever, Chills Pulmonary: Reports: shortness of breath. Denies: pleuritic chest pain, cough, sputum, wheezing Cardiovascular: Reports: No Symptoms Gastrointestinal: Denies: Abdominal pain, Nausea, Vomiting Systems Review Comment:: This patient has improved since admission, respiratory symptoms have been fairly stable and he has not had significant recurrent abdominal pain. EGD performed this morning by Dr. Terrell did show evidence of 4 gastric ulcers, biopsies were obtained for pathologic review as well as H pylori. Vital signs have been stable and he has remained afebrile. - Patient Data Vitals - most recent: Last Vital Signs Temp 97.8 F 01/21/17 14:52 Pulse 74 01/21/17 14:52 Resp 16 01/21/17 14:52 BP 122/64 01/21/17 14:52 Pulse Ox 98 01/21/17 14:52 Weight - most recent: 166 lb 14.239 oz I&O - last 24 hours: Intake & Output 01/21/17 01/21/17 01/21/17 06:59 14:59 22:59 Intake Total 1223 Balance 1223 Lab Results last 24 hrs: Laboratory Results - last 24 hr 01/21/17 01/21/17 Range/Units 05:11 05:11 WBC 11.7 H (4.5-11.0) K/uL RBC 4.65 (4.30-5.90) M/uL Hgb 14.8 (12.0-15.0) g/dL Hct 43.9 (40.0-54.0) % MCV 94 (80-98) fL MCH 32 H (27-31) pg MCHC 34 (32-36) % Plt Count 228 (150-400) K/uL Neut % (Auto) 45 (36-66) % Lymph % (Auto) 40 (24-44) % [place] % (Auto) 15 H (2-6) % Eos % (Auto) 0 L (2-4) % Baso % (Auto) 1 (0-1) % Sodium 138 L (140-148) mmol/L Potassium 4.1 (3.6-5.2) mmol/L Chloride 103 (100-108) mmol/L Carbon Dioxide 25 (21-32) mmol/L Anion Gap 14.1 H (5.0-14.0) mmol/L BUN 20 H (7-18) mg/dL Creatinine 1.2 (0.8-1.3) mg/dL Est Cr Clr Drug Dosing 68.44 mL/min Estimated GFR (MDRD) > 60 (>60) Glucose 94 (74-106) mg/dL Calcium 8.1 L (8.5-10.1) mg/dL Med Orders - Current: Current Medications Acetaminophen (Tylenol) 650 mg PO Q4H PRN PRN Reason: Pain (Mild 1-3)/fever Albuterol (Proventil Neb Soln) 2.5 mg NEB Q4H PRN PRN Reason: Dyspnea Albuterol/Ipratropium (Duoneb 3.0-0.5 Mg/3 Ml) 3 ml NEB QIDRT [facility] Last Admin: 01/21/17 14:44 Dose: 3 ml Clopidogrel Bisulfate (Plavix) 75 mg PO DAILY [facility] Last Admin: 01/21/17 13:01 Dose: 75 mg Lidocaine HCl 60 ml/ Al (Hydroxide/Mg Hydroxide 360 ml) 0 ml PO Q4H PRN PRN Reason: PAIN Docusate Sodium (Colace) 100 mg PO BID PRN PRN Reason: Constipation Enoxaparin Sodium (Lovenox) 40 mg SUBCUT DAILY [facility] Last Admin: 01/21/17 13:02 Dose: 40 mg Escitalopram Oxalate (Lexapro) 10 mg PO DAILY [facility] Last Admin: 01/21/17 12:59 Dose: 10 mg Hydromorphone HCl (Dilaudid) 0.5 mg IVPUSH Q2H PRN PRN Reason: Pain Levofloxacin/Dextrose 750 mg/ (Premix) 150 mls @ 100 mls/hr IV Q24H [facility] Lisinopril (Prinivil) 10 mg PO DAILY [facility] Last Admin: 01/21/17 12:58 Dose: 10 mg Lorazepam (Ativan) 0.5 mg IVPUSH Q4H PRN PRN Reason: Anxiety Magnesium Hydroxide (Milk Of Magnesia) 30 ml PO Q12H PRN PRN Reason: Constipation Metoprolol Succinate (Toprol Xl) 50 mg PO DAILY [facility] Last Admin: 01/21/17 13:06 Dose: 50 mg Nitroglycerin (Nitrostat) 0.4 mg SL ASDIRECTED [facility] Ondansetron HCl (Zofran Odt) 4 mg PO Q6H PRN PRN Reason: Nausea Ondansetron HCl (Zofran) 4 mg IV Q4H PRN PRN Reason: Nausea/Vomiting Oxycodone HCl (Oxycodone) 5 mg PO Q4H PRN PRN Reason: Pain (moderate 4-6) Pantoprazole Sodium (Protonix Iv) 40 mg IV Q12H [facility] Polyethylene Glycol (Miralax) 17 gm PO DAILY PRN PRN Reason: Constipation Simvastatin (Zocor) 40 mg PO DAILY [facility] Last Admin: 01/21/17 12:58 Dose: 40 mg Sodium Chloride (Saline Flush) 10 ml FLUSH ASDIRECTED PRN PRN Reason: Keep Vein Open Discontinued Medications Albuterol/Ipratropium (Duoneb 3.0-0.5 Mg/3 Ml) 3 ml NEB QID [facility] Last Admin: 01/21/17 06:03 Dose: 3 ml Al Hydroxide/Mg Hydroxide 15 (ml/ Lidocaine HCl 15 ml) 0 ml PO ONETIME ONE Stop: 01/20/17 14:30 Last Admin: 01/20/17 15:04 Dose: 15 ml Fentanyl (Sublimaze) Confirm Administered Dose 100 mcg .ROUTE .STK-MED ONE Stop: 01/21/17 11:41 Ceftriaxone Sodium 1 gm/ (Sodium Chloride) 50 mls @ 100 mls/hr IV ONETIME ONE Stop: 01/20/17 15:38 Last Admin: 01/20/17 15:23 Dose: 100 mls/hr Levofloxacin/Dextrose 750 mg/ (Premix) 150 mls @ 100 mls/hr IV Q24H [facility] Last Admin: 01/20/17 18:29 Dose: 100 mls/hr Sodium Chloride (Normal Saline) 1,000 mls @ 125 mls/hr IV ASDIRECTED [facility] Last Admin: 01/21/17 11:27 Dose: 125 mls/hr Lorazepam (Ativan) 1 mg IVPUSH ONETIME ONE Stop: 01/20/17 14:30 Last Admin: 01/20/17 14:36 Dose: 1 mg Midazolam HCl (Versed 1 Mg/Ml) Confirm Administered Dose 2 mg .ROUTE .STK-MED ONE Stop: 01/21/17 11:41 Pantoprazole Sodium (Protonix Iv) 40 mg IVPUSH ONETIME ONE Stop: 01/20/17 15:42 Last Admin: 01/20/17 15:57 Dose: 40 mg Pantoprazole Sodium (Protonix Iv) 40 mg IV Q12H [facility] Last Admin: 01/21/17 06:03 Dose: 40 mg Propofol (Diprivan 20 Ml) Confirm Administered Dose 200 mg .ROUTE .STK-MED ONE Stop: 01/21/17 11:41 - Exam General: alert, oriented, cooperative, no acute distress Lungs: Clear to auscultation, Normal respiratory effort Cardiovascular: Regular Rate, Regular Rhythm, No Murmurs Abdomen: bowel sounds present, soft, no tenderness, no distension Extremities: no edema Skin: warm, dry, intact - Problem List Review Problem List Initiated/Reviewed/Updated: Yes - My Orders Last 24 Hours: My Active Orders 01/20/17 16:38 Resuscitation Status Routine 01/20/17 17:26 Patient Status [ADT] Routine Intake and Output [RC] QSHIFT Notify Provider Consults [RC] ASDIRECTED Notify Provider Vital Signs [RC] ASDIRECTED Oxygen Therapy [RC] PRN RT Aerosol Therapy [RC] ASDIRECTED Up ad Debo [RC] ASDIRECTED VTE/DVT Education [RC] Per Unit Routine Vital Signs [RC] Q4H Consult to Physician [CONS] Routine Acetaminophen [Tylenol] 650 mg PO Q4H PRN Albuterol [Proventil Neb Soln] 2.5 mg NEB Q4H PRN Docusate Sodium [Colace] 100 mg PO BID PRN HYDROmorphone [Dilaudid] 0.5 mg IVPUSH Q2H PRN LORazepam [Ativan] 0.5 mg IVPUSH Q4H PRN Lidocaine 2% [Xylocaine 2% Viscous] 60 ml Alum Hydrox/Mag Hydrox/Simeth [Mag-Al Plus] 360 ml PO Q4H Magnesium Hydroxide [Milk of Magnesia] 30 ml PO Q12H PRN Ondansetron [Zofran] 4 mg IV Q4H PRN Polyethylene Glycol 3350 [MiraLAX] 17 gm PO DAILY PRN Sodium Chloride 0.9% [Saline Flush] 10 ml FLUSH ASDIRECTED PRN oxyCODONE 5 mg PO Q4H PRN Peripheral IV Insertion Adult [OM.PC] Routine 01/21/17 09:00 Lisinopril [Prinivil] 10 mg PO DAILY Metoprolol Succinate [Toprol XL] 50 mg PO DAILY Simvastatin [Zocor] 40 mg PO DAILY 01/21/17 11:00 Albuterol/Ipratropium [DuoNeb 3.0-0.5 MG/3 ML] 3 ml NEB QIDRT 01/21/17 11:15 Enoxaparin [Lovenox] 40 mg SUBCUT DAILY 01/21/17 15:22 Convert IV to Saline Lock [OM.PC] Routine 01/21/17 18:00 Levofloxacin/Dextrose 5%-Water [Levaquin in D5W 750 MG/150 ML] 750 mg Premix Bag 1 bag IV Q24H Pantoprazole [ProTONIX IV] 40 mg IV Q12H 01/21/17 Lunch Post Surgical Soft [Soft Diet] [DIET] - Plan Plan:: ASSESSMENT AND PLAN LEFT LUNG PNEUMONIA-stable since admission -Levofloxacin 750 mg IV daily -Supplemental oxygen as needed GASTRIC ULCERS-4 gastric ulcers identified on EGD this morning, further studies for H. pylori and pathologic review pending -Pain medication as needed -Saline lock IV -Antiemetic therapy as needed -Protonix 40 mg IV every 12 hours -GI cocktail every 4 hours as needed -Soft diet CORONARY ARTERY DISEASE-troponin levels have been normal over the past 2 days -Continue outpatient medical regimen CEREBROVASCULAR DISEASE-denies new neurologic symptoms -Continue outpatient medical regimen MAINTENANCE ISSUES -DVT prophylaxis; Lovenox 40 mg subcutaneous daily -GI prophylaxis; Protonix as above -Osborn catheter; not indicated -Nutrition; clear liquid diet, n.p.o. after midnight -Nicotine dependence; not required CODE STATUS-FULL CODE ADMISSION STATUS-patient will be admitted to inpatient status, expect at least a 2 night hospital stay for evaluation and management of problems as outlined above. At the time of this admission I do not reasonably expected evaluation and management of this problem will require more than a 96 hour hospital stay. DISPOSITION-anticipate discharge to home after the hospital stay. PRIMARY CARE PROVIDER-Tashi Molina
[2017-01-21] MEDS ORDERED: Levofloxacin/Dextrose 5%-Water 750 MG in Premix Bag 1 BAG IV SCH (18:00)
[2017-01-22] MEDS: Pantoprazole 40 MG Vial IV SCH (05:50)
[2017-01-22] MEDS: Albuterol/Ipratropium 3.0-0.5 MG/3 ML Neb Soln NEB SCH ×2 (07:17→10:39)
--- NOTE | 2017-01-22 07:29 | OR ---
DATE OF PROCEDURE: 01/21/2017 PROCEDURE: EGD. FINDINGS: Gastric ulcers, approximately 4, not actively bleeding. COMPLICATIONS: None. ANESTHESIA: MAC. PREOPERATIVE DIAGNOSIS: Epigastric pain. POSTOPERATIVE DIAGNOSIS: Epigastric pain. PROCEDURE IN DETAIL: The patient was placed in left lateral decubitus position. The EGD scope was introduced and advanced atraumatically to second part of the duodenum. The scope was brought back and retroflexed. There was no evidence of hiatal hernia. The duodenum was also normal. In the gastric antrum itself, there is approximately 4 ulcers. One large and remainder are small. These appeared to be healing and appeared to be chronic. They were not actively bleeding. No abnormalities on retroflexion. The GE junction was normal. The esophagus was normal. The patient tolerated the procedure well. Erasmo Terrell MD /[id number]
[2017-01-22] MEDS: Enoxaparin 40 MG/0.4 ML Syringe SUBCUT SCH (08:52)
[2017-01-22] MEDS: Clopidogrel 75 MG Tab PO SCH (08:52)
[2017-01-22] MEDS: Escitalopram 10 MG Tab PO SCH (08:53)
[2017-01-22] MEDS: Metoprolol Succinate 50 MG Tab.ER PO SCH (08:54)
[2017-01-22] MEDS: Lisinopril 10 MG Tab PO SCH (08:54)
[2017-01-22 11:20] VITALS: BP 111/58
--- NOTE | 2017-01-22 11:57 | PCM.DCSUM1 ---
Discharge Summary - Hospital Course Brief History: This patient is a 61-year-old gentleman who is admitted through the emergency department for management of pneumonia and epigastric abdominal pain. - Discharge Data Discharge Date: 01/22/17 Discharge Disposition: Home, Self-Care 01 Condition: Fair - Discharge Diagnosis/Problem(s) (1) Gastric ulcer SNOMED Code(s): 098452817 ICD Code: K25.9 - GASTRIC ULCER, UNSP ACUTE OR CHRONIC, W/O HEMOR OR PERF Status: Acute Current Visit: Yes (2) Left lower lobe pneumonia SNOMED Code(s): 013301809 ICD Code: J18.1 - LOBAR PNEUMONIA, UNSPECIFIED ORGANISM Status: Acute Current Visit: Yes Qualifiers: Pneumonia type: due to unspecified organism Qualified Code(s): J18.1 - Lobar pneumonia, unspecified organism - Patient Summary/Data Consults: Consultations 01/20/17 17:26 Consult to Physician [CONS] Routine Consulting Provider: Erasmo Terrell Call Completed to Consulting Physician: Yes Reason for Consult: Severe epigastric abdominal pain Hospital Course: This patient is a 61-year-old gentleman who was seen and evaluated in the emergency department because of pulmonary congestion and severe epigastric abdominal pain. He been evaluated through there times during the past few days in the clinic as well as emergency department because of these symptoms. On the day prior to admission CT scan of the chest did show evidence of a left lung infiltrate, he was treated with IV antibiotics and instructed to return for followup the next day. He came earlier than expected because of his severe epigastric abdominal pain. CT scan of the chest it did cover the upper abdomen and showed no significant abnormalities. Blood cultures have been obtained at the time of initial diagnosis of pneumonia, he was admitted to the hospital and given IV fluids for hydration as well as IV antibiotic therapy with levofloxacin. Protonix 40 mg twice daily was initiated at the time of admission as well as Carafate 1 g 4 times daily. On the day after admission he was seen and evaluated by Dr. Terrell and underwent EGD, this did document 4 gastric ulcers. Biopsies were obtained at the time of the procedure for assessment of helical Dr. as well as malignancy, biopsies results are pending at the time of discharge. Because of the gastric ulcers and has been given written information concerning ulcers and appropriate diet. He will be scheduled for a followup EGD with Dr. Terrell in one month. He will be discharged home on oral antibiotic therapy with levofloxacin as well as Protonix 40 mg twice daily for 2 weeks then once daily thereafter. Activity will be as tolerated and he will be scheduled for followup appointment with his primary care provider within one week. - Patient Instructions Diet: GI Soft/Low Residue/Low Fiber Activity: As Tolerated Other/Special Instructions: Schedule followup appointment with Tashi Person within one week. Schedule followup EGD with Dr. Terrell in one month, for followup of gastric ulcers. - Discharge Plan Prescriptions/Med Rec: Pantoprazole Sodium [Protonix] 40 mg PO BID #30 tablet. Home Medications: Home Meds Clopidogrel [Plavix] 75 mg PO DAILY 04/16/15 [History] Escitalopram [Lexapro] 10 mg PO DAILY 04/16/15 [History] Lisinopril 10 mg PO DAILY 04/16/15 [History] Metoprolol Succinate [Toprol XL] 50 mg PO DAILY 04/16/15 [History] Nitroglycerin [Nitrostat] 0.4 mg SL ASDIRECTED 04/16/15 [History] Simvastatin [Zocor] 40 mg PO DAILY 04/16/15 [History] Ondansetron [Zofran ODT] 4 mg PO Q6H PRN #10 tab.dis 07/23/16 [Rx] Levofloxacin [Levaquin] 500 mg PO DAILY 01/20/17 [History] oxyCODONE HCl/Acetaminophen [oxyCODONE-Acetaminophen 5-325] 1 tab PO Q6HR PRN [History] Pantoprazole Sodium [Protonix] 40 mg PO BID #30 tablet. 01/22/17 [Rx] Patient Handouts: Esophagogastroduodenoscopy, Peptic Ulcer, [id number] Referrals: Pili Silverio MD [Physician] - - Patient Data Vitals - Most Recent: Last Vital Signs Temp 97.9 F 01/22/17 11:18 Pulse 81 01/22/17 11:18 Resp 17 01/22/17 11:18 BP 111/58 L 01/22/17 11:18 Pulse Ox 94 L 01/22/17 11:18 Weight - Most Recent: 166 lb 14.239 oz I&O - Last 24 hours: Intake & Output 01/21/17 01/22/17 01/22/17 22:59 06:59 14:59 Intake Total 1640 1200 400 Balance 1640 1200 400 Med Orders - Current: Current Medications Acetaminophen (Tylenol) 650 mg PO Q4H PRN PRN Reason: Pain (Mild 1-3)/fever Albuterol (Proventil Neb Soln) 2.5 mg NEB Q4H PRN PRN Reason: Dyspnea Albuterol/Ipratropium (Duoneb 3.0-0.5 Mg/3 Ml) 3 ml NEB QIDRT [facility] Last Admin: 01/22/17 10:39 Dose: 3 ml Clopidogrel Bisulfate (Plavix) 75 mg PO DAILY [facility] Last Admin: 01/22/17 08:52 Dose: 75 mg Lidocaine HCl 60 ml/ Al (Hydroxide/Mg Hydroxide 360 ml) 0 ml PO Q4H PRN PRN Reason: PAIN Docusate Sodium (Colace) 100 mg PO BID PRN PRN Reason: Constipation Enoxaparin Sodium (Lovenox) 40 mg SUBCUT DAILY [facility] Last Admin: 01/22/17 08:52 Dose: 40 mg Escitalopram Oxalate (Lexapro) 10 mg PO DAILY [facility] Last Admin: 01/22/17 08:53 Dose: 10 mg Hydromorphone HCl (Dilaudid) 0.5 mg IVPUSH Q2H PRN PRN Reason: Pain Levofloxacin/Dextrose 750 mg/ (Premix) 150 mls @ 100 mls/hr IV Q24H [facility] Last Admin: 01/21/17 18:01 Dose: 100 mls/hr Lisinopril (Prinivil) 10 mg PO DAILY [facility] Last Admin: 01/22/17 08:54 Dose: 10 mg Lorazepam (Ativan) 0.5 mg IVPUSH Q4H PRN PRN Reason: Anxiety Magnesium Hydroxide (Milk Of Magnesia) 30 ml PO Q12H PRN PRN Reason: Constipation Last Admin: 01/22/17 09:56 Dose: 30 ml Metoprolol Succinate (Toprol Xl) 50 mg PO DAILY [facility] Last Admin: 01/22/17 08:54 Dose: 50 mg Nitroglycerin (Nitrostat) 0.4 mg SL ASDIRECTED [facility] Ondansetron HCl (Zofran Odt) 4 mg PO Q6H PRN PRN Reason: Nausea Ondansetron HCl (Zofran) 4 mg IV Q4H PRN PRN Reason: Nausea/Vomiting Oxycodone HCl (Oxycodone) 5 mg PO Q4H PRN PRN Reason: Pain (moderate 4-6) Pantoprazole Sodium (Protonix Iv) 40 mg IV Q12H [facility] Last Admin: 01/22/17 05:50 Dose: 40 mg Polyethylene Glycol (Miralax) 17 gm PO DAILY PRN PRN Reason: Constipation Simvastatin (Zocor) 40 mg PO BEDTIME [facility] Sodium Chloride (Saline Flush) 10 ml FLUSH ASDIRECTED PRN PRN Reason: Keep Vein Open Discontinued Medications Albuterol/Ipratropium (Duoneb 3.0-0.5 Mg/3 Ml) 3 ml NEB QID [facility] Last Admin: 01/21/17 06:03 Dose: 3 ml Al Hydroxide/Mg Hydroxide 15 (ml/ Lidocaine HCl 15 ml) 0 ml PO ONETIME ONE Stop: 01/20/17 14:30 Last Admin: 01/20/17 15:04 Dose: 15 ml Fentanyl (Sublimaze) Confirm Administered Dose 100 mcg .ROUTE .STK-MED ONE Stop: 01/21/17 11:41 Ceftriaxone Sodium 1 gm/ (Sodium Chloride) 50 mls @ 100 mls/hr IV ONETIME ONE Stop: 01/20/17 15:38 Last Admin: 01/20/17 15:23 Dose: 100 mls/hr Levofloxacin/Dextrose 750 mg/ (Premix) 150 mls @ 100 mls/hr IV Q24H [facility] Last Admin: 01/20/17 18:29 Dose: 100 mls/hr Sodium Chloride (Normal Saline) 1,000 mls @ 125 mls/hr IV ASDIRECTED [facility] Last Admin: 01/21/17 11:27 Dose: 125 mls/hr Lorazepam (Ativan) 1 mg IVPUSH ONETIME ONE Stop: 01/20/17 14:30 Last Admin: 01/20/17 14:36 Dose: 1 mg Midazolam HCl (Versed 1 Mg/Ml) Confirm Administered Dose 2 mg .ROUTE .STK-MED ONE Stop: 01/21/17 11:41 Pantoprazole Sodium (Protonix Iv) 40 mg IVPUSH ONETIME ONE Stop: 01/20/17 15:42 Last Admin: 01/20/17 15:57 Dose: 40 mg Pantoprazole Sodium (Protonix Iv) 40 mg IV Q12H [facility] Last Admin: 01/21/17 06:03 Dose: 40 mg Propofol (Diprivan 20 Ml) Confirm Administered Dose 200 mg .ROUTE .STK-MED ONE Stop: 01/21/17 11:41 Simvastatin (Zocor) 40 mg PO DAILY [facility] Last Admin: 01/21/17 12:58 Dose: 40 mg *Q Meaningful Use (DIS) - VTE *Q VTE Criteria *Q: - Stroke *Q Stroke Criteria *Q: - AMI *Q AMI Criteria *Q:
[2017-01-22] MEDS ORDERED: Simvastatin 20 MG Tab PO SCH (21:00)
== END 2017-01-22 14:48 | disposition home or self-care (01) | DRG 383 ==
LOC: JP.ED 14:01 → JP.MS 16:35
PROVIDERS: ADMIT Hospitalist; ATTEND Hospitalist
PROC: 0DJ08ZZ Inspection of Upper Intestinal Tract, Via Natural or Artificial Opening Endoscopic (ICD-10-PCS; principal; 2017-01-21)
DX: K25.9 Gastric ulcer, unspecified as acute or chronic, without hemorrhage or perforation (principal); J18.1 Lobar pneumonia, unspecified organism; I10 Essential (primary) hypertension; I25.2 Old myocardial infarction; Z86.73 Personal history of transient ischemic attack (TIA), and cerebral infarction without residual deficits; F17.210 Nicotine dependence, cigarettes, uncomplicated
CPT/HCPCS: 36415; 80048; 84484; 85025; 88305; 88342; 94640-76; 96365; 96375; 99284; 99285-25; A9270-GY; C9113; J0696; J1650; J1956; J2060; J2250; J2704; J3010; J7040; J7050; J7620

== ENCOUNTER 2017-03-04 08:17 | Day surgery (SDC) | payer MEDICARE, OTHER ==
[~2017-03-04 08:17] MED LIST: Midazolam 1 MG/ML 2 ML SDV ONE; Propofol 200 MG/20 ML SDV ONE; fentaNYL 100 MCG/2 ML SDV ONE
[2017-03-04] MEDS: Sodium Chloride 0.9% 1,000 ML IV SCH ×2 (09:03→14:26)
[2017-03-04] MEDS ORDERED: fentaNYL 100 MCG/2 ML SDV ONE (09:10)
[2017-03-04] MEDS ORDERED: Propofol 200 MG/20 ML SDV ONE (09:10)
[2017-03-04] MEDS ORDERED: Midazolam 1 MG/ML 2 ML SDV ONE (09:10)
--- NOTE | 2017-03-04 13:56 | CR ---
Abdomen 1V Flat HISTORY: Recent colonoscopy evaluate for free air. COMPARISON: None FINDINGS: Portable upright film demonstrate no evidence for free air or obstruction.
[2017-03-04] MEDS ORDERED: Acetaminophen/HYDROcodone 325-5 MG Tab PO PRN (14:03)
[2017-03-04] MEDS ORDERED: Ondansetron 4 MG/2 ML SDV IVPUSH PRN (14:03)
[2017-03-04 14:15] VITALS: BP 131/79
[2017-03-04] MEDS: Morphine 2 MG/ML Syringe IVPUSH PRN ×2 (14:21→15:01)
--- NOTE | 2017-03-04 14:32 | CR ---
Chest 1V Frontal HISTORY: Recent colonoscopy. COMPARISON: 09/25/2012. FINDINGS: There does appear to be some curvilinear lucency below the left hemidiaphragm suggesting f ree air. Lungs are clear. Cardiac size normal. Impression: Tiny amount of free air underneath the left hemidiaphragm. Patient had earlier colonoscopy. These findings were discussed with the patient's surgeon.
--- NOTE | 2017-03-04 14:59 | CT ---
Abdomen Pelvis wo Cont HISTORY: Is an colonoscopy. Possible free air under left hemidiaphragm on upright chest radiograph e gersonlier today. COMPARISON: Chest x-ray 03/04/2017. Dose: Total DLP 737. FINDINGS: There is no free intraperitoneal air seen. No evidence for bowel perforation. The colon is demonstrating diffuse spasm throughout its entire length. No obstruction. No abscess. The remainder the solid organs appear unremarkable on today's noncontrast study. Impression: No evidence for free intraperitoneal air. Extensive colonic spasm. These findings were discussed with the patient's surgeon.
[2017-03-04] MEDS ORDERED: Dicyclomine 10 MG Cap PO ONE (17:00)
--- NOTE | 2017-03-05 07:33 | OR ---
DATE OF PROCEDURE: 03/04/2017 PROCEDURES PERFORMED: 1. EGD. 2. Colonoscopy. FINDINGS: 1. Complete resolution of all 4 gastric ulcers (biopsied for H. pylori evaluation). 2. Normal colonoscopy. RISKS: Risks, benefits, alternatives, and limitations including, but not limited to infection, bleeding, and perforation were explained to the patient, and he wished to proceed. PREOPERATIVE DIAGNOSES: 1. History of gastric ulcers. 2. Screening colonoscopy. POSTOPERATIVE DIAGNOSES: 1. History of gastric ulcers. 2. Screening colonoscopy. PROCEDURE IN DETAIL: The patient was placed in left lateral decubitus position. The EGD scope was introduced and advanced atraumatically to the second part of the duodenum. The scope was brought back to the stomach and retroflexed. There appeared to be complete resolution of his ulcers. A single biopsy was performed for H. pylori evaluation. The GE junction was normal. Esophagus was normal. Digital rectal exam was performed next. The scope was introduced and advanced atraumatically to the ileocecal valve. A photo was taken. The scope was brought back to the ascending, transverse, descending colon, and retroflexed. The patient was noted to have a tortuous sigmoid colon. No abnormalities on retroflexion. The patient tolerated the procedure well. Erasmo Terrell MD /[id number]
== END 2017-03-04 20:10 | disposition home or self-care (01) ==
LOC: JP.SDS 08:17
PROVIDERS: ATTEND Surgery
DX: Z12.11 Encounter for screening for malignant neoplasm of colon (principal); K31.89 Other diseases of stomach and duodenum; I10 Essential (primary) hypertension; I25.10 Atherosclerotic heart disease of native coronary artery without angina pectoris; Z88.1 Allergy status to other antibiotic agents; Z95.5 Presence of coronary angioplasty implant and graft
CPT/HCPCS: 36415; 43239; 71010; 74000; 74176; 80048; 82550; 82553; 84484; 85027; 88305; 93005; A9270; G0121; J2250; J2270; J2405; J2704; J3010; J7040; 93010

== ENCOUNTER 2017-05-15 14:33 | Inpatient (IN) | payer MEDICARE, OTHER ==
[2017-05-15] MEDS ORDERED: HYDROmorphone 1 MG/ML Syringe IVPUSH ONE (16:09)
[2017-05-15] MEDS ORDERED: Metoclopramide 10 MG/2 ML SDV IVPUSH ONE (16:11)
[2017-05-15] MEDS ORDERED: Lidocaine 4% Top Soln 4 ML LTA Syringe TOP ONE (16:12)
[2017-05-15] MEDS ORDERED: Oxymetazoline 0.05% Nasal Spray 15 ML Bottle NAS ONE (16:13)
[2017-05-15] MEDS ORDERED: Lidocaine 4% Top Soln 50 ML Bottle MUCMEM ONE (16:32)
--- NOTE | 2017-05-15 16:36 | EDM.PDOC ---
ED HPI GENERAL MEDICAL PROBLEM - General Chief Complaint: Abdominal Pain Stated Complaint: STOMACH PAIN Time Seen by Provider: 05/15/17 16:05 Source of Information: Reports: Patient, Family History Limitations: Reports: Uncooperative (writhing in pain), Other - History of Present Illness Onset: Other (worse today, sx for last 3d). No: Today Duration: Day(s): (3), Recurring Location: Reports: Abdomen (epigastric) Severity: Severe - Related Data Allergies Allergy/AdvReac Type Severity Reaction Status Date / Time doxycycline AdvReac Nausea and Verified 05/15/17 14:42 Vomiting Home Meds: Home Meds Clopidogrel [Plavix] 75 mg PO DAILY 04/16/15 [History] Escitalopram [Lexapro] 10 mg PO DAILY 04/16/15 [History] Lisinopril 10 mg PO DAILY 04/16/15 [History] Metoprolol Succinate [Toprol XL] 50 mg PO DAILY 04/16/15 [History] Nitroglycerin [Nitrostat] 0.4 mg SL ASDIRECTED 04/16/15 [History] Simvastatin [Zocor] 40 mg PO DAILY 04/16/15 [History] Pantoprazole Sodium [Protonix] 40 mg PO DAILY 03/04/17 [History] Past Medical History HEENT History: Reports: Impaired Vision Other HEENT History: tinnitus Cardiovascular History: Reports: Angina, Hypertension, [place], Stents Respiratory History: Reports: Pneumonia, Recurrent Gastrointestinal History: Reports: Gastritis, Hemorrhoids, Other (See Below) Other Gastrointestinal History: Abd pain - unkown etiology- related to eating started in 80s started with salad bar, little blood when poops occasionally ulcer Musculoskeletal History: Reports: Fracture Other Musculoskeletal History: wrist, left arm Neurological History: Reports: CVA Other Neuro History: cerebroangioplasty with stent Psychiatric History: Reports: Anxiety Other Psychiatric History: smokes, uses pot - Infectious Disease History Infectious Disease History: Reports: Chicken Pox, Measles, Mumps - Past Surgical History Cardiovascular Surgical History: Reports: Coronary Artery Stent Respiratory Surgical History: Reports: None GI Surgical History: Reports: EGD Social & Family History - Family History Family Medical History: Noncontributory - Tobacco Use Smoking Status *Q: Current Every Day Smoker Years of Tobacco use: 60 Packs/Tins Daily: 0.5 Used Tobacco, but Quit: No Second Hand Smoke Exposure: No - Caffeine Use Caffeine Use: Reports: None - Alcohol Use Days Per Week of Alcohol Use: 1 Number of Drinks Per Day: 1 Total Drinks Per Week: 1 - Recreational Drug Use Recreational Drug Use: No Drug Use in Last 12 Months: Yes Recreational Drug Type: Reports: Marijuana/Hashish Recreational Drug Use Frequency: Monthly ED ROS GENERAL - Review of Systems Review Of Systems: See Below Constitutional: Reports: Malaise, Weakness, Decreased Appetite. Denies: Fever, Chills HEENT: Reports: No Symptoms Respiratory: Denies: Shortness of Breath, Cough Cardiovascular: Denies: Chest Pain, Dyspnea on Exertion, Edema, PND Endocrine: Reports: No Symptoms GI/Abdominal: Reports: Abdominal Pain (06/15), Anorexia, Black Stool, Diarrhea ( this a.m.), Nausea, Vomiting. Denies: Bloody Stool, Constipation, Hematemesis, Hematochezia, Melena : Reports: No Symptoms Musculoskeletal: Reports: No Symptoms Skin: Reports: No Symptoms Neurological: Reports: No Symptoms Psychiatric: Reports: No Symptoms Hematologic/Lymphatic: Reports: No Symptoms Immunologic: Reports: No Symptoms ED EXAM, GI/ABD - Physical Exam Exam: See Below Text/Narrative:: Initial exam showed marked epigastric tenderness to even light percussion. Equivocal rebound, no guarding. Abd appeared distended. No bowel sounds. Exam limited by patient agitation and discomfort. Repeat exam after 1mg hydromorphone showed continued tenderness in epigast. Palpation of lower quadrants had referred pain to epigastrum, savage. w/ rebound. Exam Limited By: Uncooperative General Appearance: Alert, Anxious, Moderate Distress. No: Active Emesis Eyes: Bilateral: Normal Appearance Throat/Mouth: Normal Inspection, Normal Lips, Normal Teeth Head: Atraumatic, Normocephalic Neck: Supple, Non-Tender Respiratory/Chest: No Respiratory Distress, Lungs Clear, Normal Breath Sounds, No Accessory Muscle Use, Chest Non-Tender. No: Respiratory Distress, Decreased Breath Sounds, Accessory Muscle Use Cardiovascular: Normal Peripheral Pulses, Regular Rate, Rhythm, No Murmur GI/Abdominal Exam: Soft, No Organomegaly, No Abnormal Bruit, No Mass, Distended , Rebound, Tender. No: Normal Bowel Sounds, Non-Tender, No Distention, Guarding , Rigid (Male) Exam: No Hernia, Normal Inspection. No: Hernia, Penile Lesions, Scrotal Swelling, Scrotum Tenderness (L), Scrotum Tenderness (R), Suprapubic Fullness, Testicular Mass, Testicular Tenderness (L), Testicular Tenderness (R) Rectal (Males) Exam: Normal Exam, Normal Rectal Tone, Prostate Normal. No: Bloody Stool Back Exam: Normal Inspection Extremities: Normal Inspection, Normal Range of Motion, Non-Tender, No Pedal Edema, Normal Capillary Refill Neurological: Alert, Oriented, CN II-XII Intact, Normal Cognition Psychiatric: Anxious Skin Exam: Warm, Dry, Intact Lymphatic: No Adenopathy Course - Vital Signs Last Recorded V/S: Last Vital Signs Temp 36.6 C 05/15/17 23:03 Pulse 57 L 05/15/17 23:03 Resp 14 05/15/17 23:03 BP 139/85 05/15/17 23:03 Pulse Ox 95 05/15/17 23:03 - Orders/Labs/Meds Orders: Active Orders 24 hr Category Date Time Status Gastrointestinal Tube Mgmt [RC] ASDIRECTED Care 05/15/17 17:41 Active Abdomen Pelvis wo Cont [CT] Stat Exams 05/15/17 22:04 Taken Abdomen Series w Chest 1V [CR] Stat Exams 05/15/17 16:15 Taken PATIENT RETYPE [BBK] Stat Lab 05/15/17 16:36 Results TYPE AND SCREEN [BBK] Stat Lab 05/15/17 16:36 Results Lactated Ringers [Ringers, Lactated] 1,000 ml Med 05/15/17 16:45 Active IV ASDIRECTED Nasogastric Orogastric Tube Insertion [OM.PC] Routine Oth 05/15/17 17:41 Ordered Medication Orders Albuterol (Proventil Neb Soln) 2.5 mg NEB Q4H PRN PRN Reason: Shortness Of Breath/wheezing Clopidogrel Bisulfate (Plavix) 75 mg PO DAILY [facility] Escitalopram Oxalate (Lexapro) 10 mg PO DAILY [facility] Hydromorphone HCl (Dilaudid Livestock Handler 15 Mg In Ns 30 Ml) 0 mg IV ASDIRECTED PRN; Protocol PRN Reason: Pain Last Admin: 05/15/17 23:13 Dose: 15 mg Lactated Ringer's (Ringers, Lactated) 1,000 mls @ 125 mls/hr IV ASDIRECTED [facility] Last Admin: 05/15/17 20:05 Dose: 125 mls/hr Infusion: 05/15/17 20:05 Dose: 125 mls/hr Admin: 05/15/17 18:13 Dose: 125 mls/hr Lactated Ringer's (Ringers, Lactated) 1,000 mls @ 125 mls/hr IV ASDIRECTED [facility] Lisinopril (Prinivil) 10 mg PO DAILY [facility] Lorazepam (Ativan) 1 mg IV Q6H PRN PRN Reason: Nausea/Vomiting Metoprolol Succinate (Toprol Xl) 50 mg PO DAILY [facility] Naloxone HCl (Narcan) 0.4 mg IVPUSH Q2M PRN PRN Reason: Respiratory Distress Nitroglycerin (Nitrostat) 0.4 mg SL ASDIRECTED [facility] Pantoprazole Sodium (Protonix Iv) 40 mg IV DAILY [facility] Labs: Laboratory Tests 05/15/17 05/15/17 05/15/17 Range/Units 16:36 16:36 16:36 WBC 14.8 H (4.5-11.0) K/uL RBC 5.14 (4.30-5.90) M/uL Hgb 16.4 H D (12.0-15.0) g/dL Hct 48.1 (40.0-54.0) % MCV 94 (80-98) fL MCH 32 H (27-31) pg MCHC 34 (32-36) % Plt Count 262 (150-400) K/uL Neut % (Auto) 81 H (36-66) % Lymph % (Auto) 10 L (24-44) % [place] % (Auto) 9 H (2-6) % Eos % (Auto) 0 L (2-4) % Baso % (Auto) 0 (0-1) % ABG Hemoglobin (13.5-18.0) g/dL ABG Oxyhemoglobin % ABG Carboxyhemoglobin (0.0-1.6) % ABG Methemoglobin % VBG pH (7.350-7.450) VBG pCO2 mm/Hg VBG pO2 mm/Hg VBG HCO3 mmol/L VBG Total CO2 mmol/L VBG O2 Saturation VBG O2 Content %vol VBG Base Excess mm/L O2 Delivery Device Sodium 134 L (140-148) mmol/L Potassium 3.8 (3.6-5.2) mmol/L Chloride 100 (100-108) mmol/L Carbon Dioxide 19 L (21-32) mmol/L Anion Gap 18.8 H (5.0-14.0) mmol/L BUN 30 H D (7-18) mg/dL Creatinine 1.7 H D (0.8-1.3) mg/dL Est Cr Clr Drug Dosing 48.31 mL/min Estimated GFR (MDRD) 41 L (>60) Glucose 125 H (74-106) mg/dL Lactic Acid (0.4-2.0) mmol/L Calcium 9.5 (8.5-10.1) mg/dL Total Bilirubin 0.6 (0.2-1.0) mg/dL AST 25 (15-37) U/L ALT 33 (12-78) U/L Alkaline Phosphatase 63 (46-116) U/L Total Protein 8.7 H (6.4-8.2) g/dL Albumin 4.2 (3.4-5.0) g/dL Globulin 4.5 H (2.3-3.5) g/dL Albumin/Globulin Ratio 0.9 L (1.2-2.2) Lipase (73-393) U/L Blood Type A POSITIVE Gel Antibody Screen Negative 05/15/17 05/15/17 05/15/17 Range/Units 16:36 17:39 19:06 WBC (4.5-11.0) K/uL RBC (4.30-5.90) M/uL Hgb (12.0-15.0) g/dL Hct (40.0-54.0) % MCV (80-98) fL MCH (27-31) pg MCHC (32-36) % Plt Count (150-400) K/uL Neut % (Auto) (36-66) % Lymph % (Auto) (24-44) % [place] % (Auto) (2-6) % Eos % (Auto) (2-4) % Baso % (Auto) (0-1) % ABG Hemoglobin 15.0 (13.5-18.0) g/dL ABG Oxyhemoglobin 77.0 % ABG Carboxyhemoglobin 1.0 (0.0-1.6) % ABG Methemoglobin 0.8 % VBG pH 7.397 (7.350-7.450) VBG pCO2 37.0 mm/Hg VBG pO2 45.6 mm/Hg VBG HCO3 22.3 mmol/L VBG Total CO2 19.5 mmol/L VBG O2 Saturation 78.4 VBG O2 Content 16.2 %vol VBG Base Excess -1.6 mm/L O2 Delivery Device Room air Sodium 136 L (140-148) mmol/L Potassium 4.1 (3.6-5.2) mmol/L Chloride 103 (100-108) mmol/L Carbon Dioxide 24 (21-32) mmol/L Anion Gap 13.1 (5.0-14.0) mmol/L BUN 29 H (7-18) mg/dL Creatinine 1.5 H (0.8-1.3) mg/dL Est Cr Clr Drug Dosing 54.75 mL/min Estimated GFR (MDRD) 48 L (>60) Glucose 121 H (74-106) mg/dL Lactic Acid (0.4-2.0) mmol/L Calcium 8.7 (8.5-10.1) mg/dL Total Bilirubin (0.2-1.0) mg/dL AST (15-37) U/L ALT (12-78) U/L Alkaline Phosphatase (46-116) U/L Total Protein (6.4-8.2) g/dL Albumin (3.4-5.0) g/dL Globulin (2.3-3.5) g/dL Albumin/Globulin Ratio (1.2-2.2) Lipase 138 (73-393) U/L Blood Type Gel Antibody Screen 05/15/17 Range/Units 19:06 WBC (4.5-11.0) K/uL RBC (4.30-5.90) M/uL Hgb (12.0-15.0) g/dL Hct (40.0-54.0) % MCV (80-98) fL MCH (27-31) pg MCHC (32-36) % Plt Count (150-400) K/uL Neut % (Auto) (36-66) % Lymph % (Auto) (24-44) % [place] % (Auto) (2-6) % Eos % (Auto) (2-4) % Baso % (Auto) (0-1) % ABG Hemoglobin (13.5-18.0) g/dL ABG Oxyhemoglobin % ABG Carboxyhemoglobin (0.0-1.6) % ABG Methemoglobin % VBG pH (7.350-7.450) VBG pCO2 mm/Hg VBG pO2 mm/Hg VBG HCO3 mmol/L VBG Total CO2 mmol/L VBG O2 Saturation VBG O2 Content %vol VBG Base Excess mm/L O2 Delivery Device Sodium (140-148) mmol/L Potassium (3.6-5.2) mmol/L Chloride (100-108) mmol/L Carbon Dioxide (21-32) mmol/L Anion Gap (5.0-14.0) mmol/L BUN (7-18) mg/dL Creatinine (0.8-1.3) mg/dL Est Cr Clr Drug Dosing mL/min Estimated GFR (MDRD) (>60) Glucose (74-106) mg/dL Lactic Acid 1.5 (0.4-2.0) mmol/L Calcium (8.5-10.1) mg/dL Total Bilirubin (0.2-1.0) mg/dL AST (15-37) U/L ALT (12-78) U/L Alkaline Phosphatase (46-116) U/L Total Protein (6.4-8.2) g/dL Albumin (3.4-5.0) g/dL Globulin (2.3-3.5) g/dL Albumin/Globulin Ratio (1.2-2.2) Lipase (73-393) U/L Blood Type Gel Antibody Screen Meds: Medications Generic Name Dose Route Start Last Admin Trade Name Freq PRN Reason Stop Dose Admin Albuterol 2.5 mg 05/15/17 22:45 Proventil Neb Soln NEB Q4H PRN Shortness Of Breath/wheezing Clopidogrel Bisulfate 75 mg 05/16/17 09:00 Plavix PO DAILY [facility] Escitalopram Oxalate 10 mg 05/16/17 09:00 Lexapro PO DAILY [facility] Hydromorphone HCl 0 mg 05/15/17 22:45 05/15/17 23:13 Dilaudid Livestock Handler 15 Mg In Ns 30 Ml IV 15 mg ASDIRECTED PRN Administration Pain Protocol Lactated Ringer's 1,000 mls @ 125 mls/hr 05/15/17 16:45 05/15/17 20:05 Ringers, Lactated IV 125 mls/hr ASDIRECTED [facility] Administration Lactated Ringer's 1,000 mls @ 125 mls/hr 05/15/17 22:45 Ringers, Lactated IV ASDIRECTED [facility] Lisinopril 10 mg 05/16/17 09:00 Prinivil PO DAILY [facility] Lorazepam 1 mg 05/15/17 22:45 Ativan IV Q6H PRN Nausea/Vomiting Metoprolol Succinate 50 mg 05/16/17 09:00 Toprol Xl PO DAILY [facility] Naloxone HCl 0.4 mg 05/15/17 22:45 Narcan IVPUSH Q2M PRN Respiratory Distress Nitroglycerin 0.4 mg 05/15/17 22:45 Nitrostat SL ASDIRECTED [facility] Pantoprazole Sodium 40 mg 05/16/17 09:00 Protonix Iv IV DAILY [facility] Discontinued Medications Generic Name Dose Route Start Last Admin Trade Name Freq PRN Reason Stop Dose Admin Al Hydroxide/Mg Hydroxide 15 0 ml 05/15/17 22:03 05/15/17 22:08 ml/ Lidocaine HCl 15 ml PO 05/15/17 22:04 15 ml ONETIME ONE Administration Hydromorphone HCl 1 mg 05/15/17 16:09 05/15/17 16:24 Dilaudid IVPUSH 05/15/17 16:10 1 mg ONETIME ONE Administration Hydromorphone HCl 0.5 mg 05/15/17 18:43 05/15/17 19:55 Dilaudid IVPUSH 0.5 mg Q1H PRN Administration Pain (severe 7-10) Lactated Ringer's 1,000 mls @ 999 mls/hr 05/15/17 16:37 05/15/17 18:11 Ringers, Lactated IV 05/15/17 17:37 999 mls/hr BOLUS ONE Administration Lidocaine 4 ml 05/15/17 16:12 05/15/17 18:14 Lta 360 Kit Top Soln TOP 05/15/17 16:13 Not Given ONETIME ONE Lidocaine HCl Confirm 05/15/17 16:28 05/15/17 19:59 Xylocaine 4% Top Soln Administered 05/15/17 16:29 Not Given Dose 50 ml .ROUTE .STK-MED ONE Lidocaine HCl 2 ml 05/15/17 16:32 05/15/17 18:16 Xylocaine 4% Top Soln MUCMEM 05/15/17 16:33 2 ml ONETIME ONE Administration Lorazepam 1 mg 05/15/17 21:54 05/15/17 22:08 Ativan IVPUSH 05/15/17 21:55 1 mg ONETIME ONE Administration Metoclopramide HCl 10 mg 05/15/17 16:11 05/15/17 16:24 Reglan IVPUSH 05/15/17 16:12 10 mg ONETIME ONE Administration Oxymetazoline HCl 1 ml 05/15/17 16:13 05/15/17 18:10 Afrin Original 0.05% Nasal [place] JIM 05/15/17 16:14 1 ml ONETIME ONE Administration - Radiology Interpretation Free Text/Narrative:: c/w acute SBO, no free air - Re-Assessments/Exams Free Text/Narrative Re-Assessment/Exam: 05/15/17 18:58 Abdominal pain much improved, but patient isn't terribly pleased with comfort from NG tube. Will repeat labs to guide addition fluid resuscitation. Departure - Departure Time of Disposition: 23:12 Disposition: Admitted As Inpatient 68 Condition: Fair Clinical Impression: Small bowel obstruction - Discharge Information - My Orders Last 24 Hours: My Active Orders 05/15/17 16:15 Abdomen Series w Chest 1V [CR] Stat 05/15/17 16:36 PATIENT RETYPE [BBK] Stat TYPE AND SCREEN [BBK] Stat 05/15/17 16:45 Lactated Ringers [Ringers, Lactated] 1,000 ml IV ASDIRECTED 05/15/17 17:41 Gastrointestinal Tube Mgmt [RC] ASDIRECTED Nasogastric Orogastric Tube Insertion [OM.PC] Routine - Assessment/Plan Last 24 Hours: My Active Orders 05/15/17 16:15 Abdomen Series w Chest 1V [CR] Stat 05/15/17 16:36 PATIENT RETYPE [BBK] Stat TYPE AND SCREEN [BBK] Stat 05/15/17 16:45 Lactated Ringers [Ringers, Lactated] 1,000 ml IV ASDIRECTED 05/15/17 17:41 Gastrointestinal Tube Mgmt [RC] ASDIRECTED Nasogastric Orogastric Tube Insertion [OM.PC] Routine
[2017-05-15] MEDS ORDERED: Lactated Ringers 1,000 ML IV ONE (16:37)
[2017-05-15] MEDS: Lidocaine 4% Top Soln 50 ML Bottle ONE ×2 (18:10→19:59)
[2017-05-15] MEDS: Lactated Ringers 1,000 ML IV SCH ×2 (18:13→20:05)
[2017-05-15] MEDS: HYDROmorphone 0.5 MG/0.5 ML Syringe IVPUSH PRN ×2 (18:53→19:55)
[2017-05-15] MEDS ORDERED: LORazepam 2 MG/ML MDV IVPUSH ONE (21:54)
[2017-05-15] MEDS ORDERED: Alum Hydrox/Mag Hydrox/Simeth 15 ML, Lidocaine 2% 15 ML PO ONE ×2 (22:03)
[2017-05-15] MEDS ORDERED: Albuterol 0.083% 2.5 MG/3 ML Neb Soln NEB PRN (22:45)
[2017-05-15] MEDS ORDERED: HYDROmorphone/Normal Saline 15 MG/30 ML PCA IV PRN (22:45)
[2017-05-15] MEDS ORDERED: LORazepam 2 MG/ML MDV IV PRN (22:45)
[2017-05-15] MEDS ORDERED: Naloxone 0.4 MG/ML SDV IVPUSH PRN (22:45)
[2017-05-15] MEDS ORDERED: Nitroglycerin 0.4 MG Tab.SL SL SCH (22:45)
--- NOTE | 2017-05-16 01:13 | PCM.HP ---
H&P History of Present Illness - General Date of Service: 05/15/17 Admit Problem/Dx: Admission Diagnosis/Problem Admission Diagnosis/Problem Small bowel obstruction Source of Information: Patient History Limitations: Reports: No Limitations - History of Present Illness Initial Comments - Free Text/Narative: ext/Narrative:: Initial exam showed marked epigastric tenderness to even light percussion. Equivocal rebound, no guarding. Abdomen appeared distended. No bowel sounds. Exam limited by patient agitation and discomfort. Repeat exam after 1mg hydromorphone showed continued tenderness in epigastric. Palpation of lower quadrants had referred pain to epigastric, savage. w/ rebound. Exam Limited By: Uncooperative Onset of Symptoms: Reports: Gradual Duration of Symptoms: Reports: Day(s): (three days, worse today), Constant, Getting Worse Location: Reports: Abdomen Quality: Reports: Sharp Severity: Severe Improves with: Reports: None Worsens with: Reports: None Associated Symptoms: Reports: Loss of Appetite, Nausea/Vomiting - Related Data Allergies/Adverse Reactions: Allergies Allergy/AdvReac Type Severity Reaction Status Date / Time doxycycline AdvReac Nausea and Verified 05/15/17 14:42 Vomiting Home Medications: Home Meds Clopidogrel [Plavix] 75 mg PO DAILY 04/16/15 [History] Escitalopram [Lexapro] 10 mg PO DAILY 04/16/15 [History] Lisinopril 10 mg PO DAILY 04/16/15 [History] Metoprolol Succinate [Toprol XL] 50 mg PO DAILY 04/16/15 [History] Nitroglycerin [Nitrostat] 0.4 mg SL ASDIRECTED 04/16/15 [History] Simvastatin [Zocor] 40 mg PO DAILY 04/16/15 [History] Pantoprazole Sodium [Protonix] 40 mg PO DAILY 03/04/17 [History] Past Medical History HEENT History: Reports: Impaired Vision Other HEENT History: tinnitus Cardiovascular History: Reports: Angina, Hypertension, ND, Stents Respiratory History: Reports: Pneumonia, Recurrent Gastrointestinal History: Reports: Gastritis, Hemorrhoids, Other (See Below) Other Gastrointestinal History: Abd pain - unkown etiology- related to eating started in 80s started with salad bar, little blood when poops occasionally ulcer Musculoskeletal History: Reports: Fracture Other Musculoskeletal History: wrist, left arm Neurological History: Reports: CVA Other Neuro History: cerebroangioplasty with stent Psychiatric History: Reports: Anxiety Other Psychiatric History: smokes, uses pot - Infectious Disease History Infectious Disease History: Reports: Chicken Pox, Measles, Mumps - Past Surgical History Cardiovascular Surgical History: Reports: Coronary Artery Stent Respiratory Surgical History: Reports: None GI Surgical History: Reports: EGD Social & Family History - Family History Family Medical History: Noncontributory - Tobacco Use Smoking Status *Q: Current Every Day Smoker Years of Tobacco use: 40 Packs/Tins Daily: 0.5 Used Tobacco, but Quit: No Second Hand Smoke Exposure: No - Caffeine Use Caffeine Use: Reports: None - Alcohol Use Days Per Week of Alcohol Use: 5 Number of Drinks Per Day: 2 Total Drinks Per Week: 10 - Recreational Drug Use Recreational Drug Use: No Drug Use in Last 12 Months: Yes Recreational Drug Type: Reports: Marijuana/Hashish Recreational Drug Use Frequency: Monthly H&P Review of Systems - Review of Systems: Review Of Systems: Unable To Obtain (Mr. Bain very uncooperative. only want to see Dr. Manning) General: Reports: Decreased Appetite, Other (abdominal pain) Gastrointestinal: Reports: Abdominal Pain Exam - Exam Exam: See Below - Vital Signs Vital Signs: Last Vital Signs Temp 36.6 C 05/15/17 23:03 Pulse 57 L 05/15/17 23:03 Resp 14 05/15/17 23:03 BP 139/85 05/15/17 23:03 Pulse Ox 88 L 05/15/17 23:53 Weight: 83.007 kg - Exam General: Alert, Moderate Distress, Other (uncooperative) HEENT: PERRLA, Conjunctiva Clear, EACs Clear, EOMI, Hearing Intact, Pupils Equal , Pupils Reactive Neck: Supple, Trachea Midline Lungs: Clear to Auscultation, Normal Respiratory Effort Cardiovascular: Regular Rate, Regular Rhythm GI/Abdominal Exam: Tender (generalized), Abnormal Bowel Sounds (upper bowel hyperactive) (Male) Exam: Deferred Rectal (Males) Exam: Deferred Extremities: Normal Inspection, Normal Range of Motion, Non-Tender, No Pedal Edema, Normal Capillary Refill Peripheral Pulses: 2+: Radial (L), Radial (R) Skin: Warm, Dry, Intact Neuro Extensive - Mental Status: Alert, Other (agitated, unwilling to answer questions. ) Psychiatric: Alert, Anxious, Agitated - Patient Data Result Diagrams: 05/15/17 16:36 05/15/17 19:06 *Q Meaningful Use (ADM) - VTE *Q VTE Criteria *Q: - Stroke *Q Stroke Criteria *Q: - AMI *Q AMI Criteria *Q: - Problem List (1) Abdominal pain SNOMED Code(s): 19201385 ICD Code: R10.9 - UNSPECIFIED ABDOMINAL PAIN Status: Acute Priority: High Current Visit: Yes Qualifiers: Abdominal location: generalized Problem List Initiated/Reviewed/Updated: Yes Orders Last 24hrs: Active Orders 24 hr Category Date Time Status Patient Status [ADT] Routine ADT 05/15/17 22:45 Active Bedrest Bathroom Privileges [RC] ASDIRECTED Care 05/15/17 22:45 Active Cardiac Monitoring [RC] .As Directed Care 05/15/17 22:45 Active Communication Order [RC] STAT Care 05/15/17 22:45 Active Intake and Output [RC] QSHIFT Care 05/15/17 22:45 Active Notify Provider Consults [RC] ASDIRECTED Care 05/15/17 22:45 Active Notify Provider Vital Signs [RC] ASDIRECTED Care 05/15/17 22:45 Active Notify Provider [RC] PRN Care 05/15/17 22:45 Active Oxygen Therapy [RC] PRN Care 05/15/17 22:45 Active PLASTIC BLOCK BOILER RELINER Record [RC] PER UNIT ROUTINE Care 05/15/17 22:45 Active Pulse Oximetry [RC] CONTINUOUS Care 05/15/17 22:45 Active RT Aerosol Therapy [RC] ASDIRECTED Care 05/15/17 22:45 Active VTE/DVT Education [RC] Per Unit Routine Care 05/15/17 22:45 Active Vital Signs [RC] Q4H Care 05/15/17 22:45 Active Consult to Physician [CONS] Routine Cons 05/15/17 22:45 Ordered Nothing per Oral Now Diet [DIET] Diet 05/15/17 Breakfast Active BASIC METABOLIC PANEL,BMP [CHEM] AM Lab 05/16/17 05:11 Ordered CBC WITH AUTO DIFF [HEME] AM Lab 05/16/17 05:11 Ordered Albuterol [Proventil Neb Soln] Med 05/15/17 22:45 Active 2.5 mg NEB Q4H PRN Clopidogrel [Plavix] Med 05/16/17 09:00 Active 75 mg PO DAILY Escitalopram [Lexapro] Med 05/16/17 09:00 Active 10 mg PO DAILY HYDROmorphone/Normal Saline [Dilaudid PLASTIC BLOCK BOILER RELINER 15 MG in NS Med 05/15/17 22:45 Active 30 ML] See Protocol IV ASDIRECTED PRN LORazepam [Ativan] Med 05/15/17 22:45 Active 1 mg IV Q6H PRN Lactated Ringers [Ringers, Lactated] 1,000 ml Med 05/15/17 22:45 Active IV ASDIRECTED Lisinopril [Prinivil] Med 05/16/17 09:00 Active 10 mg PO DAILY Metoprolol Succinate [Toprol XL] Med 05/16/17 09:00 Active 50 mg PO DAILY Naloxone [Narcan] Med 05/15/17 22:45 Active 0.4 mg IVPUSH Q2M PRN Nitroglycerin [Nitrostat] Med 05/15/17 22:45 Active 0.4 mg SL ASDIRECTED Pantoprazole [ProTONIX IV] Med 05/16/17 09:00 Active 40 mg IV DAILY Medication Discontinuation Instructions [OM.PC] Stat Oth 05/15/17 22:45 Ordered Sequential Compression Device [OM.PC] Per Unit Routine Oth 05/15/17 22:45 Ordered Resuscitation Status Routine Resus Stat 05/15/17 22:15 Ordered Medication Orders Albuterol (Proventil Neb Soln) 2.5 mg NEB Q4H PRN PRN Reason: Shortness Of Breath/wheezing Clopidogrel Bisulfate (Plavix) 75 mg PO DAILY [facility] Escitalopram Oxalate (Lexapro) 10 mg PO DAILY [facility] Hydromorphone HCl (Dilaudid Centrifugal Wax Molder 15 Mg In Ns 30 Ml) 0 mg IV ASDIRECTED PRN; Protocol PRN Reason: Pain Last Admin: 05/15/17 23:13 Dose: 15 mg Lactated Ringer's (Ringers, Lactated) 1,000 mls @ 125 mls/hr IV ASDIRECTED [facility] Last Admin: 05/15/17 20:05 Dose: 125 mls/hr Infusion: 05/15/17 20:05 Dose: 125 mls/hr Admin: 05/15/17 18:13 Dose: 125 mls/hr Lactated Ringer's (Ringers, Lactated) 1,000 mls @ 125 mls/hr IV ASDIRECTED [facility] Lisinopril (Prinivil) 10 mg PO DAILY [facility] Lorazepam (Ativan) 1 mg IV Q6H PRN PRN Reason: Nausea/Vomiting Metoprolol Succinate (Toprol Xl) 50 mg PO DAILY [facility] Naloxone HCl (Narcan) 0.4 mg IVPUSH Q2M PRN PRN Reason: Respiratory Distress Nitroglycerin (Nitrostat) 0.4 mg SL ASDIRECTED [facility] Pantoprazole Sodium (Protonix Iv) 40 mg IV DAILY [facility] Assessment/Plan Comment:: Assessment/Plan Comment:: Nurses and Provider notes review. Mr. Bain is moaning and agitated with facial grimace, does not want NG tube in place, reports his abdomen is better. Doesn't want to be here. Not willing to answer many questions related to admission. I did order IV Ativan 1 mg and GI cocktail for comfort. This did not improve his demeanor. He did allow chest and abdomen auscultation, lungs are clear, heart s1s2 no murmur, abdomen mild tenderness. no bowel sounds noted to mid to lower abdomen. Exam Limited By: Uncooperative Patient did agree to have CT scan done prior to admission to [address] [place] [address] scan without contrast; the NG tube is positioned with the tip in the gastric body. moderate wall thickening is present in the proximal sigmoid colon. The appendix is normal in appearance and size. Impression: moderate wall thickening is present in the proximal sigmoid colon. This can be seen with mild colitis or inflammatory bowel disease. Assessment with colonscopy is recommended unless already recently performed to exclude any mucosal abnormalities. Assessment and plan - -Consult to Dr. Christophe Casarez-Surgical, he recommend CT scan without contrast prior to admission -Admit for pain control -Dilaudid PLASTIC BLOCK BOILER RELINER -IV fluids; lactated ringers at 125ml/hr -Ativan IV for nausea/vomiting or anxiety -Blood pressure control and close monitoring of vital signs -keep NPO -NG to low intermittent suction Maintenance issues - - DVT prophylaxis - scd - GI prophylaxis - PPI IV Protonix 20 mg in am - Nutrition - nothing by mouth - Osborn catheter - not indicated CODE STATUS - FULL CODE Admission justification - This patient will be admitted for inpatient services and is medically appropriate meeting medical necessity for inpatient admission as outlined in my documentation. I reasonably expect the patient will require inpatient services that span a period time over 2 midnights. I reasonably expect this patient to be discharged or transferred within 96 hours after admission to the [facility]. Disposition - anticipate discharge back to home after the hospital stay Primary care physician - Dr. Marietta Person Hospitialist: Ren Perez M.D.
[2017-05-16] MEDS: Lactated Ringers 1,000 ML IV SCH ×2 (03:30→11:11)
[2017-05-16] MEDS ORDERED: Pantoprazole 40 MG Vial IV SCH (09:00)
[2017-05-16] MEDS: Escitalopram 10 MG Tab PO SCH (09:06)
[2017-05-16] MEDS: Clopidogrel 75 MG Tab PO SCH (09:06)
[2017-05-16] MEDS: Metoprolol Succinate 50 MG Tab.ER PO SCH (09:10)
[2017-05-16] MEDS: Lisinopril 10 MG Tab PO SCH (09:10)
[2017-05-16] MEDS ORDERED: LORazepam 2 MG/ML MDV IV PRN (12:55)
--- NOTE | 2017-05-16 13:03 | PCM.PN ---
- General Info Date of Service: 05/16/17 Functional Status: Reports: Pain Controlled, Ambulating, Urinating - Review of Systems General: Denies: Fever, Chills Pulmonary: Reports: No Symptoms Cardiovascular: Reports: No Symptoms Gastrointestinal: Reports: Abdominal Pain. Denies: Decreased Appetite, Difficulty Swallowing, Hematochezia, Melena, Nausea, Vomiting Systems Review Comment:: Mr. Bain is a 61-year-old gentleman who is admitted through the emergency department with intense epigastric abdominal pain. Symptoms have been present over the past 2 days and then increased in intensity and duration. He has a history of similar symptoms occurring last spring, on evaluation was found to have gastric ulcers. He was treated with Protonix and follow-up EGD showed resolution of all of the ulcers. He did remain on Protonix once daily although occasionally does miss a dose. Over the past few weeks is been drinking more alcoholic beverages and smoking more. Symptoms are very similar to what he experienced in the spring, he's been seen and evaluated by Dr. Casarez and plan is to proceed with EGD tomorrow. - Patient Data Vitals - Most Recent: Last Vital Signs Temp 97.2 F 05/16/17 10:54 Pulse 67 05/16/17 10:54 Resp 16 05/16/17 10:54 BP 100/56 L 05/16/17 10:54 Pulse Ox 94 L 05/16/17 10:54 Weight - Most Recent: 183 lb I&O - Last 24 Hours: Intake & Output 05/15/17 05/16/17 05/16/17 22:59 06:59 14:59 Intake Total 766 320 Output Total 300 Balance 466 320 Lab Results Last 24 Hours: Laboratory Results - last 24 hr 05/16/17 05/16/17 Range/Units 06:00 06:00 WBC 15.9 H (4.5-11.0) K/uL RBC 4.50 (4.30-5.90) M/uL Hgb 14.4 D (12.0-15.0) g/dL Hct 43.5 (40.0-54.0) % MCV 97 (80-98) fL MCH 32 H (27-31) pg MCHC 33 (32-36) % Plt Count 234 (150-400) K/uL Neut % (Auto) 66 (36-66) % Lymph % (Auto) 17 L (24-44) % [place] % (Auto) 17 H (2-6) % Eos % (Auto) 0 L (2-4) % Baso % (Auto) 0 (0-1) % Sodium 137 L (140-148) mmol/L Potassium 3.9 (3.6-5.2) mmol/L Chloride 105 (100-108) mmol/L Carbon Dioxide 25 (21-32) mmol/L Anion Gap 10.9 (5.0-14.0) mmol/L BUN 23 H (7-18) mg/dL Creatinine 1.2 (0.8-1.3) mg/dL Est Cr Clr Drug Dosing 68.44 mL/min Estimated GFR (MDRD) > 60 (>60) Glucose 105 (74-106) mg/dL Calcium 8.4 L (8.5-10.1) mg/dL Med Orders - Current: Current Medications Albuterol (Proventil Neb Soln) 2.5 mg NEB Q4H PRN PRN Reason: Shortness Of Breath/wheezing Clopidogrel Bisulfate (Plavix) 75 mg PO DAILY [facility] Last Admin: 05/16/17 09:06 Dose: 75 mg Escitalopram Oxalate (Lexapro) 10 mg PO DAILY [facility] Last Admin: 05/16/17 09:06 Dose: 10 mg Glycopyrrolate (Glycopyrrolate) 0.4 mg IVPUSH ONCALL ONE Stop: 05/17/17 07:16 Hydromorphone HCl (Dilaudid Mat Cleaning Machine Operator 15 Mg In Ns 30 Ml) 0 mg IV ASDIRECTED PRN; Protocol PRN Reason: Pain Last Admin: 05/15/17 23:13 Dose: 15 mg Lactated Ringer's (Ringers, Lactated) 1,000 mls @ 125 mls/hr IV ASDIRECTED [facility] Last Admin: 05/16/17 11:11 Dose: 125 mls/hr Lisinopril (Prinivil) 10 mg PO DAILY [facility] Last Admin: 05/16/17 09:10 Dose: 10 mg Lorazepam (Ativan) 0.5 mg IV Q6H PRN PRN Reason: Nausea/Vomiting Metoprolol Succinate (Toprol Xl) 50 mg PO DAILY [facility] Last Admin: 05/16/17 09:10 Dose: 50 mg Naloxone HCl (Narcan) 0.4 mg IVPUSH Q2M PRN PRN Reason: Respiratory Distress Nitroglycerin (Nitrostat) 0.4 mg SL ASDIRECTED [facility] Pantoprazole Sodium (Protonix Iv) 40 mg IV Q12H [facility] Discontinued Medications Al Hydroxide/Mg Hydroxide 15 (ml/ Lidocaine HCl 15 ml) 0 ml PO ONETIME ONE Stop: 05/15/17 22:04 Last Admin: 05/15/17 22:08 Dose: 15 ml Hydromorphone HCl (Dilaudid) 1 mg IVPUSH ONETIME ONE Stop: 05/15/17 16:10 Last Admin: 05/15/17 16:24 Dose: 1 mg Hydromorphone HCl (Dilaudid) 0.5 mg IVPUSH Q1H PRN PRN Reason: Pain (severe 7-10) Last Admin: 05/15/17 19:55 Dose: 0.5 mg Lactated Ringer's (Ringers, Lactated) 1,000 mls @ 125 mls/hr IV ASDIRECTED [facility] Last Admin: 05/16/17 03:30 Dose: 125 mls/hr Lactated Ringer's (Ringers, Lactated) 1,000 mls @ 999 mls/hr IV BOLUS ONE Stop: 05/15/17 17:37 Last Admin: 05/15/17 18:11 Dose: 999 mls/hr Lidocaine (Lta 360 Kit Top Soln) 4 ml TOP ONETIME ONE Stop: 05/15/17 16:13 Last Admin: 05/15/17 18:14 Dose: Not Given Lidocaine HCl (Xylocaine 4% Top Soln) Confirm Administered Dose 50 ml .ROUTE .STK-MED ONE Stop: 05/15/17 16:29 Last Admin: 05/15/17 19:59 Dose: Not Given Lidocaine HCl (Xylocaine 4% Top Soln) 2 ml MUCMEM ONETIME ONE Stop: 05/15/17 16:33 Last Admin: 05/15/17 18:16 Dose: 2 ml Lorazepam (Ativan) 1 mg IVPUSH ONETIME ONE Stop: 05/15/17 21:55 Last Admin: 05/15/17 22:08 Dose: 1 mg Lorazepam (Ativan) 1 mg IV Q6H PRN PRN Reason: Nausea/Vomiting Metoclopramide HCl (Reglan) 10 mg IVPUSH ONETIME ONE Stop: 05/15/17 16:12 Last Admin: 05/15/17 16:24 Dose: 10 mg Oxymetazoline HCl (Afrin Original 0.05% Nasal [place]) 1 ml JIM ONETIME ONE Stop: 05/15/17 16:14 Last Admin: 05/15/17 18:10 Dose: 1 ml Pantoprazole Sodium (Protonix Iv) 40 mg IV DAILY [facility] Last Admin: 05/16/17 09:07 Dose: 40 mg - Exam Quality Assessment: DVT Prophylaxis General: Alert, Oriented, Cooperative, Mild Distress Lungs: Clear to Auscultation, Normal Respiratory Effort Cardiovascular: Regular Rate, Regular Rhythm, No Murmurs GI/Abdominal Exam: Normal Bowel Sounds, Soft, Non-Tender, No Distention Extremities: Normal Inspection, No Pedal Edema Skin: Warm, Dry, Intact - Problem List Review Problem List Initiated/Reviewed/Updated: Yes - My Orders Last 24 Hours: My Active Orders 05/16/17 12:30 Pantoprazole [ProTONIX IV] 40 mg IV Q12H 05/16/17 12:54 Cardiac Monitoring Discontinue [RC] Click to Edit 05/16/17 12:55 LORazepam [Ativan] 0.5 mg IV Q6H PRN 05/17/17 05:00 BASIC METABOLIC PANEL,BMP [CHEM] Timed CBC WITH AUTO DIFF [HEME] Timed - Plan Plan:: Assessment/Plan Comment:: EPIGASTRIC ABDOMINAL PAIN-similar symptoms to what he experienced last spring when he was found to have gastric ulcerations. On initial evaluation and on admission was felt to have bowel obstruction, presently there is no evidence of obstruction and the NG tube has been removed. -EGD with Dr. Casarez in the a.m. -Admit for pain control -Dilaudid MANAGER TECHNICAL TRAINING -IV fluids; lactated ringers at 125ml/hr -Ativan IV for nausea/vomiting or anxiety -Diet as ordered by Dr. Casarez -Nothing by mouth after midnight -Protonix 40 mg IV every 12 hours Maintenance issues - - DVT prophylaxis - scd - GI prophylaxis - Protonix as above - Nutrition - may eat today, nothing by mouth after midnight - Osborn catheter - not indicated CODE STATUS - FULL CODE Admission justification - This patient will be admitted for inpatient services and is medically appropriate meeting medical necessity for inpatient admission as outlined in my documentation. I reasonably expect the patient will require inpatient services that span a period time over 2 midnights. I reasonably expect this patient to be discharged or transferred within 96 hours after admission to the [facility]. Disposition - anticipate discharge back to home after the hospital stay Primary care physician - Marietta Person Hospitialist: Ren Perez M.D.
--- NOTE | 2017-05-16 18:22 | PN ---
DATE OF SERVICE: 05/16/2017 The patient was admitted overnight with increasing abdominal pain, this was primarily epigastric pain. He feels like this is similar to when he has had ulcers or gastritis in the past. Presently, he has been on Protonix fairly reliably and was diagnosed with a peptic ulcer. In February of this year, he underwent endoscopy. His upper endoscopy in early April showed this to be healed, but he now feels that the pain has come back. His gallbladder has been worked up extensively and workup has been negative. The CT scan suggests some thickening of the sigmoid colon, but he did have the colonoscopy in February, and this was probably due to lack of significant filling of the colon at that level, and his symptoms certainly would not be suggestive of anything in terms of pathology in the sigmoid colon. The plan at this point will be to proceed with an upper GI endoscopy with biopsies tomorrow morning to see what the present status of the gastritis and ulcers is. Christophe Casarez MD /[id number]
[2017-05-16] MEDS: Pantoprazole 40 MG Vial IV SCH (20:48)
[2017-05-17] MEDS: Lactated Ringers 1,000 ML IV SCH ×2 (04:28→09:04)
[2017-05-17] MEDS ORDERED: Propofol 200 MG/20 ML SDV ONE (07:10)
[2017-05-17] MEDS ORDERED: Midazolam 1 MG/ML 2 ML SDV ONE (07:10)
[2017-05-17] MEDS ORDERED: fentaNYL 100 MCG/2 ML SDV ONE (07:10)
[2017-05-17] MEDS ORDERED: Glycopyrrolate 0.2 MG/ML 2 ML SDV IVPUSH ONE (07:15)
[2017-05-17] MEDS: Pantoprazole 40 MG Vial IV SCH (08:11)
[2017-05-17] MEDS ORDERED: Aluminum Hydroxide/Magnesium Hydroxide/Simethicone Susp 30 ML Cup PO PRN (08:20)
[2017-05-17] MEDS: Escitalopram 10 MG Tab PO SCH (08:49)
[2017-05-17] MEDS: Lisinopril 10 MG Tab PO SCH (08:49)
[2017-05-17] MEDS: Clopidogrel 75 MG Tab PO SCH (08:49)
[2017-05-17] MEDS: Metoprolol Succinate 50 MG Tab.ER PO SCH (08:51)
--- NOTE | 2017-05-17 09:18 | CR ---
Heart size within normal limits. Pulmonary vasculature within normal limits. No focal consolidation. A few air-fluid levels within the small bowel. Nonspecific bowel gas pattern.
[2017-05-17 10:57] VITALS: BP 109/60
--- NOTE | 2017-05-17 11:11 | PCM.SURGPN ---
- General Info Date of Service: 05/17/17 POD#: 0 Post-Op Diagnosis: Mid Epigastric Abdominal Pain Functional Status: Reports: Pain Controlled - Review of Systems General: Reports: No Symptoms HEENT: Reports: No Symptoms Pulmonary: Reports: No Symptoms Cardiovascular: Reports: No Symptoms Gastrointestinal: Reports: Abdominal Pain (mid epigastric abdominal pain ) Genitourinary: Reports: No Symptoms Musculoskeletal: Reports: No Symptoms Skin: Reports: No Symptoms Neurological: Reports: No Symptoms Psychiatric: Reports: No Symptoms - Patient Data Vitals - Most Recent: Last Vital Signs Temp 97.3 F 05/17/17 10:15 Pulse 75 05/17/17 10:50 Resp 16 05/17/17 10:50 BP 109/60 05/17/17 10:50 Pulse Ox 95 05/17/17 10:50 Weight - Most Recent: 182 lb 15.986 oz I&O - Last 24 Hours: Intake & Output 05/16/17 05/17/17 05/17/17 22:59 06:59 14:59 Intake Total 1638 1266 50 Balance 1638 1266 50 Lab Results Last 24 Hrs: Laboratory Results - last 24 hr 05/17/17 05/17/17 Range/Units 04:49 04:49 WBC 9.6 (4.5-11.0) K/uL RBC 4.10 L (4.30-5.90) M/uL Hgb 13.5 (12.0-15.0) g/dL Hct 39.9 L (40.0-54.0) % MCV 97 (80-98) fL MCH 33 H (27-31) pg MCHC 34 (32-36) % Plt Count 227 (150-400) K/uL Neut % (Auto) 47 (36-66) % Lymph % (Auto) 35 (24-44) % [place] % (Auto) 17 H (2-6) % Eos % (Auto) 1 L (2-4) % Baso % (Auto) 1 (0-1) % Sodium 138 L (140-148) mmol/L Potassium 3.7 (3.6-5.2) mmol/L Chloride 105 (100-108) mmol/L Carbon Dioxide 27 (21-32) mmol/L Anion Gap 9.7 (5.0-14.0) mmol/L BUN 14 (7-18) mg/dL Creatinine 1.1 (0.8-1.3) mg/dL Est Cr Clr Drug Dosing 74.66 mL/min Estimated GFR (MDRD) > 60 (>60) Glucose 89 (74-106) mg/dL Calcium 8.2 L (8.5-10.1) mg/dL Med Orders - Current: Current Medications Al Hydroxide/Mg Hydroxide (Mag-Al Plus) 30 ml PO ASDIRECTED PRN PRN Reason: EPIGASTRIC PAIN Albuterol (Proventil Neb Soln) 2.5 mg NEB Q4H PRN PRN Reason: Shortness Of Breath/wheezing Clopidogrel Bisulfate (Plavix) 75 mg PO DAILY [facility] Last Admin: 05/17/17 08:49 Dose: 75 mg Escitalopram Oxalate (Lexapro) 10 mg PO DAILY [facility] Last Admin: 05/17/17 08:49 Dose: 10 mg Hydromorphone HCl (Dilaudid Aerospace Engineer 15 Mg In Ns 30 Ml) 0 mg IV ASDIRECTED PRN; Protocol PRN Reason: Pain Last Admin: 05/15/17 23:13 Dose: 15 mg Lactated Ringer's (Ringers, Lactated) 1,000 mls @ 125 mls/hr IV ASDIRECTED [facility] Last Admin: 05/17/17 09:04 Dose: 125 mls/hr Lisinopril (Prinivil) 10 mg PO DAILY [facility] Last Admin: 05/17/17 08:49 Dose: 10 mg Lorazepam (Ativan) 0.5 mg IV Q6H PRN PRN Reason: Nausea/Vomiting Metoprolol Succinate (Toprol Xl) 50 mg PO DAILY [facility] Last Admin: 05/17/17 08:51 Dose: 50 mg Naloxone HCl (Narcan) 0.4 mg IVPUSH Q2M PRN PRN Reason: Respiratory Distress Nitroglycerin (Nitrostat) 0.4 mg SL ASDIRECTED [facility] Pantoprazole Sodium (Protonix Iv) 40 mg IV Q12H [facility] Last Admin: 05/17/17 08:11 Dose: 40 mg Discontinued Medications Al Hydroxide/Mg Hydroxide 15 (ml/ Lidocaine HCl 15 ml) 0 ml PO ONETIME ONE Stop: 05/15/17 22:04 Last Admin: 05/15/17 22:08 Dose: 15 ml Fentanyl (Sublimaze) Confirm Administered Dose 100 mcg .ROUTE .STK-MED ONE Stop: 05/17/17 07:11 Glycopyrrolate (Glycopyrrolate) 0.4 mg IVPUSH ONCALL ONE Stop: 05/17/17 07:16 Last Admin: 05/17/17 07:05 Dose: 0.4 mg Hydromorphone HCl (Dilaudid) 1 mg IVPUSH ONETIME ONE Stop: 05/15/17 16:10 Last Admin: 05/15/17 16:24 Dose: 1 mg Hydromorphone HCl (Dilaudid) 0.5 mg IVPUSH Q1H PRN PRN Reason: Pain (severe 7-10) Last Admin: 05/15/17 19:55 Dose: 0.5 mg Lactated Ringer's (Ringers, Lactated) 1,000 mls @ 125 mls/hr IV ASDIRECTED [facility] Last Admin: 05/16/17 03:30 Dose: 125 mls/hr Lactated Ringer's (Ringers, Lactated) 1,000 mls @ 999 mls/hr IV BOLUS ONE Stop: 05/15/17 17:37 Last Admin: 05/15/17 18:11 Dose: 999 mls/hr Lidocaine (Lta 360 Kit Top Soln) 4 ml TOP ONETIME ONE Stop: 05/15/17 16:13 Last Admin: 05/15/17 18:14 Dose: Not Given Lidocaine HCl (Xylocaine 4% Top Soln) Confirm Administered Dose 50 ml .ROUTE .STK-MED ONE Stop: 05/15/17 16:29 Last Admin: 05/15/17 19:59 Dose: Not Given Lidocaine HCl (Xylocaine 4% Top Soln) 2 ml MUCMEM ONETIME ONE Stop: 05/15/17 16:33 Last Admin: 05/15/17 18:16 Dose: 2 ml Lorazepam (Ativan) 1 mg IVPUSH ONETIME ONE Stop: 05/15/17 21:55 Last Admin: 05/15/17 22:08 Dose: 1 mg Lorazepam (Ativan) 1 mg IV Q6H PRN PRN Reason: Nausea/Vomiting Metoclopramide HCl (Reglan) 10 mg IVPUSH ONETIME ONE Stop: 05/15/17 16:12 Last Admin: 05/15/17 16:24 Dose: 10 mg Midazolam HCl (Versed 1 Mg/Ml) Confirm Administered Dose 2 mg .ROUTE .STK-MED ONE Stop: 05/17/17 07:11 Oxymetazoline HCl (Afrin Original 0.05% Nasal [place]) 1 ml JIM ONETIME ONE Stop: 05/15/17 16:14 Last Admin: 05/15/17 18:10 Dose: 1 ml Pantoprazole Sodium (Protonix Iv) 40 mg IV DAILY [facility] Last Admin: 05/16/17 09:07 Dose: 40 mg Propofol (Diprivan 20 Ml) Confirm Administered Dose 200 mg .ROUTE .STK-MED ONE Stop: 05/17/17 07:11 - Exam Quality Assessment: DVT Prophylaxis General: Alert, Oriented, Cooperative HEENT: Pupils Equal Neck: Supple Lungs: Clear to Auscultation, Normal Respiratory Effort Cardiovascular: Regular Rate, Regular Rhythm GI/Abdominal Exam: Non-Tender Extremities: Normal Inspection Skin: Warm, Dry, Intact Neurological: No New Focal Deficit Psy/Mental Status: Alert, Normal Affect, Normal Mood - Problem List & Annotations (1) Abdominal pain SNOMED Code(s): 59381217 Code(s): R10.9 - UNSPECIFIED ABDOMINAL PAIN Status: Acute Priority: High Current Visit: Yes Qualifiers: Abdominal location: generalized Qualified Code(s): R10.84 - Generalized abdominal pain - Problem List Review Problem List Initiated/Reviewed/Updated: Yes - My Orders Last 24 Hours: Active Orders 24 hr Category Date Time Status Full Liquid Diet [DIET] Diet 05/17/17 Breakfast Ordered SHELL TEST [RM] Routine Lab 05/17/17 07:22 Ordered Alum Hydrox/Mag Hydrox/Simeth [Mag-Al Plus] Med 05/17/17 08:20 Active 30 ml PO ASDIRECTED PRN LORazepam [Ativan] Med 05/16/17 12:55 Active 0.5 mg IV Q6H PRN Pantoprazole [ProTONIX IV] Med 05/16/17 21:00 Active 40 mg IV Q12H Medication Orders Al Hydroxide/Mg Hydroxide (Mag-Al Plus) 30 ml PO ASDIRECTED PRN PRN Reason: EPIGASTRIC PAIN Albuterol (Proventil Neb Soln) 2.5 mg NEB Q4H PRN PRN Reason: Shortness Of Breath/wheezing Clopidogrel Bisulfate (Plavix) 75 mg PO DAILY [facility] Last Admin: 05/17/17 08:49 Dose: 75 mg Admin: 05/16/17 09:06 Dose: 75 mg Escitalopram Oxalate (Lexapro) 10 mg PO DAILY [facility] Last Admin: 05/17/17 08:49 Dose: 10 mg Admin: 05/16/17 09:06 Dose: 10 mg Hydromorphone HCl (Dilaudid Aerospace Engineer 15 Mg In Ns 30 Ml) 0 mg IV ASDIRECTED PRN; Protocol PRN Reason: Pain Last Admin: 05/15/17 23:13 Dose: 15 mg Lactated Ringer's (Ringers, Lactated) 1,000 mls @ 125 mls/hr IV ASDIRECTED [facility] Last Admin: 05/17/17 09:04 Dose: 125 mls/hr Infusion: 05/17/17 09:04 Dose: 125 mls/hr Admin: 05/17/17 04:28 Dose: 125 mls/hr Infusion: 05/16/17 19:11 Dose: 125 mls/hr Admin: 05/16/17 11:11 Dose: 125 mls/hr Lisinopril (Prinivil) 10 mg PO DAILY [facility] Last Admin: 05/17/17 08:49 Dose: 10 mg Admin: 05/16/17 09:10 Dose: 10 mg Lorazepam (Ativan) 0.5 mg IV Q6H PRN PRN Reason: Nausea/Vomiting Metoprolol Succinate (Toprol Xl) 50 mg PO DAILY [facility] Last Admin: 05/17/17 08:51 Dose: 50 mg Admin: 05/16/17 09:10 Dose: 50 mg Naloxone HCl (Narcan) 0.4 mg IVPUSH Q2M PRN PRN Reason: Respiratory Distress Nitroglycerin (Nitrostat) 0.4 mg SL ASDIRECTED [facility] Pantoprazole Sodium (Protonix Iv) 40 mg IV Q12H [facility] Last Admin: 05/17/17 08:11 Dose: 40 mg Admin: 05/16/17 20:48 Dose: 40 mg - Plan Plan (Free Text/Narrative):: EGD with possible biopsies - IV Sedation - Christophe Casarez MD today Orders to be written after EGD Brooklynn Mccoy
--- NOTE | 2017-05-17 11:36 | PCM.DCSUM1 ---
Discharge Summary - Hospital Course Brief History: 61-year-old male with history of gastric ulcers and tobacco dependence who presents with severe epigastric abdominal pain. He was admitted for management and further workup. - Discharge Data Discharge Date: 05/17/17 Discharge Disposition: Home, Self-Care 01 Condition: Fair - Discharge Diagnosis/Problem(s) (1) Gastritis SNOMED Code(s): 6535440 ICD Code: K29.70 - GASTRITIS, UNSPECIFIED, WITHOUT BLEEDING Status: Acute Qualifiers: Gastritis type: other gastritis Chronicity: acute Gastritis bleeding: without bleeding Qualified Code(s): K29.00 - Acute gastritis without bleeding (2) Tobacco dependence SNOMED Code(s): 72233546 ICD Code: F17.200 - NICOTINE DEPENDENCE, UNSPECIFIED, UNCOMPLICATED Status : Chronic - Patient Summary/Data Operative Procedure(s) Performed: EGD with Dr. Casarez showing gastritis Consults: Consultations 05/15/17 22:45 Consult to Physician [CONS] Routine Consulting Provider: Christophe Casarez Courtesy Call Completed to Consulting Physician: Yes: consult and manage care in am Reason for Consult: small bowel obstruction Date Notified: 05/15/17 Time Notified: 21:50 Hospital Course: Erasmo presented to the emergency room with epigastric abdominal pain. Initial workup in the emergency room was mildly concerning for bowel obstruction. Laboratory studies showed a mild leukocytosis. CT scan obtained just prior to admission did not show evidence for a bowel obstruction though it did show what appeared to be some thickening of the colon which was later thought to be under distention rather than inflammation because the patient did not have any pain in the area. He was admitted to the hospital for pain control and further workup and monitoring. He was seen by Dr. Casarez in consultation the morning after admission. Dr. Casarez felt this was more likely a gastric issues such as return of his ulcer disease or gastritis and EGD was planned for the following morning. He was on a twice daily proton pump inhibitor. The patient felt like this pain was very similar to his pain related ulcers earlier in the year. Clinically he felt better with some IV fluids, IV proton pump inhibitor therapy and pain control. On the morning of discharge she did have an EGD completed and this did show some antral gastritis. Clinically he feels much better. He has no abdominal pain at this time. He has not had any fevers. He has been tolerating a full liquid diet without any difficulty. Upon further discussion he has been smoking more than he had been prior and he has been consuming more alcohol throughout the summer than what he normally does. We discussed lifestyle modifications including tobacco cessation and ideally complete cessation from alcohol. He felt like he was able to cut down on his smoking with the goal of quitting eventually. He also felt like he would be able to discontinue alcohol use altogether. I did increase his proton pump inhibitor to twice daily for the next month. Hopefully can return to once daily thereafter with lifestyle modifications mentioned above. He has also had a fair amount of stress recently and will be making some changes to try to reduce his stress. He is safe for outpatient management at this time and will be discharged to home. - Patient Instructions Diet: Regular Diet as Tolerated Diet, Other: Soft and bland foods for the next 1-2 weeks Activity: As Tolerated Driving: May Drive Today Showering/Bathing: May Shower Notify Provider of: Fever, Increased Pain, Nausea and/or Vomiting Other/Special Instructions: 1. You were in the hospital for management of epigastric pain which was caused by gastritis (inflammation in your stomach). I recommend that you increase your pantoprazole (Protonix) to twice daily for the next month. Hopefully you can reduce to once daily after the next month. Decreasing or more preferably eliminating your consumption of alcohol and tobacco can help reduce stomach acid and improve healing. I would recommend that for the next 1-2 weeks you avoid acidic foods such as things that contain tomatoes or tomato sauce as well as difficult to digest foods like fresh broccoli, fresh cauliflower or corn. 2. Please continue your other medications as previously prescribed. 3. Please seek medical attention if you develop fever greater than 101, have severe pain, persistent vomiting or severe diarrhea. - Discharge Plan Prescriptions/Med Rec: Pantoprazole Sodium [Protonix] 40 mg PO BIDAC #60 tablet. Home Medications: Home Meds Clopidogrel [Plavix] 75 mg PO DAILY 04/16/15 [History] Escitalopram [Lexapro] 10 mg PO DAILY 04/16/15 [History] Lisinopril 10 mg PO DAILY 04/16/15 [History] Metoprolol Succinate [Toprol XL] 50 mg PO DAILY 04/16/15 [History] Nitroglycerin [Nitrostat] 0.4 mg SL ASDIRECTED 04/16/15 [History] Simvastatin [Zocor] 40 mg PO DAILY 04/16/15 [History] Pantoprazole Sodium [Protonix] 40 mg PO BIDAC #60 tablet. 05/17/17 [Rx] Patient Handouts: Gastritis, Adult, Pantoprazole tablets Referrals: Tashi Person PA [Primary Care Provider] - (f/u as needed if your symptoms do not continue to get better over the course over the next 1-2 weeks) - Discharge Summary/Plan Comment DC Time >30 min.: No (25) - Patient Data Vitals - Most Recent: Last Vital Signs Temp 36.3 C 05/17/17 10:15 Pulse 75 05/17/17 10:50 Resp 16 05/17/17 10:50 BP 109/60 05/17/17 10:50 Pulse Ox 95 05/17/17 10:50 Weight - Most Recent: 83.007 kg I&O - Last 24 hours: Intake & Output 05/16/17 05/17/17 05/17/17 22:59 06:59 14:59 Intake Total 1638 1266 50 Balance 1638 1266 50 Lab Results - Last 24 hrs: Laboratory Results - last 24 hr 05/17/17 05/17/17 Range/Units 04:49 04:49 WBC 9.6 (4.5-11.0) K/uL RBC 4.10 L (4.30-5.90) M/uL Hgb 13.5 (12.0-15.0) g/dL Hct 39.9 L (40.0-54.0) % MCV 97 (80-98) fL MCH 33 H (27-31) pg MCHC 34 (32-36) % Plt Count 227 (150-400) K/uL Neut % (Auto) 47 (36-66) % Lymph % (Auto) 35 (24-44) % [place] % (Auto) 17 H (2-6) % Eos % (Auto) 1 L (2-4) % Baso % (Auto) 1 (0-1) % Sodium 138 L (140-148) mmol/L Potassium 3.7 (3.6-5.2) mmol/L Chloride 105 (100-108) mmol/L Carbon Dioxide 27 (21-32) mmol/L Anion Gap 9.7 (5.0-14.0) mmol/L BUN 14 (7-18) mg/dL Creatinine 1.1 (0.8-1.3) mg/dL Est Cr Clr Drug Dosing 74.66 mL/min Estimated GFR (MDRD) > 60 (>60) Glucose 89 (74-106) mg/dL Calcium 8.2 L (8.5-10.1) mg/dL Med Orders - Current: Current Medications Al Hydroxide/Mg Hydroxide (Mag-Al Plus) 30 ml PO ASDIRECTED PRN PRN Reason: EPIGASTRIC PAIN Albuterol (Proventil Neb Soln) 2.5 mg NEB Q4H PRN PRN Reason: Shortness Of Breath/wheezing Clopidogrel Bisulfate (Plavix) 75 mg PO DAILY [facility] Last Admin: 05/17/17 08:49 Dose: 75 mg Escitalopram Oxalate (Lexapro) 10 mg PO DAILY [facility] Last Admin: 05/17/17 08:49 Dose: 10 mg Hydromorphone HCl (Dilaudid Director Of Sales 15 Mg In Ns 30 Ml) 0 mg IV ASDIRECTED PRN; Protocol PRN Reason: Pain Last Admin: 05/15/17 23:13 Dose: 15 mg Lactated Ringer's (Ringers, Lactated) 1,000 mls @ 125 mls/hr IV ASDIRECTED [facility] Last Admin: 05/17/17 09:04 Dose: 125 mls/hr Lisinopril (Prinivil) 10 mg PO DAILY [facility] Last Admin: 05/17/17 08:49 Dose: 10 mg Lorazepam (Ativan) 0.5 mg IV Q6H PRN PRN Reason: Nausea/Vomiting Metoprolol Succinate (Toprol Xl) 50 mg PO DAILY [facility] Last Admin: 05/17/17 08:51 Dose: 50 mg Naloxone HCl (Narcan) 0.4 mg IVPUSH Q2M PRN PRN Reason: Respiratory Distress Nitroglycerin (Nitrostat) 0.4 mg SL ASDIRECTED [facility] Pantoprazole Sodium (Protonix Iv) 40 mg IV Q12H [facility] Last Admin: 05/17/17 08:11 Dose: 40 mg Discontinued Medications Al Hydroxide/Mg Hydroxide 15 (ml/ Lidocaine HCl 15 ml) 0 ml PO ONETIME ONE Stop: 05/15/17 22:04 Last Admin: 05/15/17 22:08 Dose: 15 ml Fentanyl (Sublimaze) Confirm Administered Dose 100 mcg .ROUTE .STK-MED ONE Stop: 05/17/17 07:11 Glycopyrrolate (Glycopyrrolate) 0.4 mg IVPUSH ONCALL ONE Stop: 05/17/17 07:16 Last Admin: 05/17/17 07:05 Dose: 0.4 mg Hydromorphone HCl (Dilaudid) 1 mg IVPUSH ONETIME ONE Stop: 05/15/17 16:10 Last Admin: 05/15/17 16:24 Dose: 1 mg Hydromorphone HCl (Dilaudid) 0.5 mg IVPUSH Q1H PRN PRN Reason: Pain (severe 7-10) Last Admin: 05/15/17 19:55 Dose: 0.5 mg Lactated Ringer's (Ringers, Lactated) 1,000 mls @ 125 mls/hr IV ASDIRECTED [facility] Last Admin: 05/16/17 03:30 Dose: 125 mls/hr Lactated Ringer's (Ringers, Lactated) 1,000 mls @ 999 mls/hr IV BOLUS ONE Stop: 05/15/17 17:37 Last Admin: 05/15/17 18:11 Dose: 999 mls/hr Lidocaine (Lta 360 Kit Top Soln) 4 ml TOP ONETIME ONE Stop: 05/15/17 16:13 Last Admin: 05/15/17 18:14 Dose: Not Given Lidocaine HCl (Xylocaine 4% Top Soln) Confirm Administered Dose 50 ml .ROUTE .STK-MED ONE Stop: 05/15/17 16:29 Last Admin: 05/15/17 19:59 Dose: Not Given Lidocaine HCl (Xylocaine 4% Top Soln) 2 ml MUCMEM ONETIME ONE Stop: 05/15/17 16:33 Last Admin: 05/15/17 18:16 Dose: 2 ml Lorazepam (Ativan) 1 mg IVPUSH ONETIME ONE Stop: 05/15/17 21:55 Last Admin: 05/15/17 22:08 Dose: 1 mg Lorazepam (Ativan) 1 mg IV Q6H PRN PRN Reason: Nausea/Vomiting Metoclopramide HCl (Reglan) 10 mg IVPUSH ONETIME ONE Stop: 05/15/17 16:12 Last Admin: 05/15/17 16:24 Dose: 10 mg Midazolam HCl (Versed 1 Mg/Ml) Confirm Administered Dose 2 mg .ROUTE .STK-MED ONE Stop: 05/17/17 07:11 Oxymetazoline HCl (Afrin Original 0.05% Nasal [place]) 1 ml JIM ONETIME ONE Stop: 05/15/17 16:14 Last Admin: 05/15/17 18:10 Dose: 1 ml Pantoprazole Sodium (Protonix Iv) 40 mg IV DAILY [facility] Last Admin: 05/16/17 09:07 Dose: 40 mg Propofol (Diprivan 20 Ml) Confirm Administered Dose 200 mg .ROUTE .STK-MED ONE Stop: 05/17/17 07:11 *Q Meaningful Use (DIS) - VTE *Q VTE Criteria *Q: - Stroke *Q Stroke Criteria *Q: - AMI *Q AMI Criteria *Q:
--- NOTE | 2017-05-18 14:26 | OR ---
DATE OF PROCEDURE: 05/17/2017 PREOPERATIVE DIAGNOSIS: Epigastric pain. POSTOPERATIVE DIAGNOSIS: Epigastric pain associated with: 1. Hiatal hernia with minimal esophagitis. 2. Patchy antral gastritis. OPERATIVE PROCEDURE: Esophagogastroduodenoscopy with antral biopsies for CLOtest. ANESTHESIA: IV sedation. INDICATIONS FOR PROCEDURE: A 61-year-old male admitted over the weekend with some recurrent epigastric pain. To evaluate this, he will need to undergo an upper GI endoscopy with biopsies as indicated. Potential risks including bleeding and perforation were discussed, and the patient wishes to proceed. DETAILS OF PROCEDURE: The patient was taken to the operating room and placed in the left lateral decubitus position. IV sedation was administered, after which the upper GI endoscope was passed orally through the length of the esophagus into the stomach with retroflexion view of the fundus, and thereafter through the pyloric channel and into the proximal duodenum. Findings included normal hypopharynx, larynx, upper esophageal sphincter, and esophageal body. The patient had a small hiatal hernia present. This at this point had minimal esophagitis. This had previously been biopsied per Dr. Terrell earlier in the stomach and it was felt we do not need to repeat the biopsies of that location. Upon placing the scope in the stomach, retroflexion confirmed the hiatal hernia. There was some patchy antral gastritis, which most likely accounted for the patient's symptoms. The duodenum and pyloric channel were unremarkable. At this point, biopsies were taken from the antrum and sent for CLOtest for H. pylori. Minimal bleeding from the biopsy sites was seen and the procedure was then concluded. The patient was taken to the recovery room in satisfactory condition. PLAN: We will have the patient continue the Protonix and then use something like Gaviscon on a p.r.n. basis to help with the epigastric discomfort. He will likely be discharged later today per Dr. Jarrett. Christophe Casarez MD /[id number]
== END 2017-05-17 13:03 | disposition home or self-care (01) | DRG 392 ==
LOC: JP.ED 14:33 → JP.MS 22:09
PROVIDERS: ADMIT Hospitalist; ATTEND Internal Medicine
PROC: 0DB68ZX Excision of Stomach, Via Natural or Artificial Opening Endoscopic, Diagnostic (ICD-10-PCS; principal; 2017-05-17)
DX: K56.60 Unspecified intestinal obstruction (principal); N17.9 Acute kidney failure, unspecified; K29.00 Acute gastritis without bleeding; R10.13 Epigastric pain; I10 Essential (primary) hypertension; F17.210 Nicotine dependence, cigarettes, uncomplicated; R45.1 Restlessness and agitation; I25.2 Old myocardial infarction; Z86.73 Personal history of transient ischemic attack (TIA), and cerebral infarction without residual deficits; F41.9 Anxiety disorder, unspecified; Z72.89 Other problems related to lifestyle; Z73.9 Problem related to life management difficulty, unspecified; I20.9 Angina pectoris, unspecified; Z87.01 Personal history of pneumonia (recurrent); Z95.5 Presence of coronary angioplasty implant and graft; H54.7 Unspecified visual loss; Z88.1 Allergy status to other antibiotic agents; Z87.11 Personal history of peptic ulcer disease; K44.9 Diaphragmatic hernia without obstruction or gangrene; K20.9 Esophagitis, unspecified
CPT/HCPCS: 74022 ×2; 96361; 99285 ×2; 96374; 96375; 96376; 85025; 82803; 36415; 80053; 80048; 83690; 83605; 82272; 86900; 86901; 86850; J1170 ×3; A9270 ×4; J2060; J2765; J7120 ×3; 74176; 87081; 94762; C9113; J2250; J2704; J3010; J3490

== ENCOUNTER 2019-06-13 19:16 | Emergency (ER) | payer MEDICARE, OTHER ==
[2019-06-13] MEDS ORDERED: Simethicone 80 MG Tab.Chew PO ONE (19:24)
[2019-06-13] MEDS ORDERED: HYDROmorphone 0.5 MG/0.5 ML Syringe IVPUSH ONE ×3 (19:33→20:55)
[2019-06-13] MEDS ORDERED: Ondansetron 4 MG/2 ML SDV IVPUSH ONE (19:43)
--- NOTE | 2019-06-13 19:43 | EDM.PDOC ---
ED HPI GENERAL MEDICAL PROBLEM - General Chief Complaint: Abdominal Pain Stated Complaint: STOMACH PAIN Time Seen by Provider: 06/13/19 19:20 Source of Information: Reports: Patient, Family, Old Records, RN History Limitations: Reports: Other (poor historian) - History of Present Illness INITIAL COMMENTS - FREE TEXT/NARRATIVE: 63 yo male here with pain to the lower half of his abdomen since yesterday. Sx' s were intermittent initially, came back in the middle of the night last night. Has had this in the past, has never been to the clinic for it. Did vomit some today. Less bowel movements than normal, but apparently looked normal. Pain got better after taking his Protonix yesterday so he attributed the improvement to this. Has had a cold for the past several days so he says for this reason he hadn't taken any of his meds for nearly a week until he restarted them during pain about 0400h today. His records say he has had a SBO, he denies this. His records indicate he is a smoker. His last visit to the hospital was for colonoscopy with Dr. Casarez about 18 mos ago. Also has hyperlipidemia, HTN, CAD, and a hx of gastric ulcer. States the pain waxes and wanes, apparently is trending toward getting worse. Onset: Gradual Onset Date: 06/12/19 Duration: Day(s): (1+), Getting Worse, Waxing/Waning Location: Reports: Abdomen Quality: Reports: Ache, Pressure, Other (crampy, pressure) Severity: Severe Improves with: Reports: Medication (He thinks Protonix helped yesterday....?) Worsens with: Reports: Eating Context: Reports: Other (See HPI) Associated Symptoms: Reports: Nausea/Vomiting. 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) (usual meds only) Abdominal Pain Score (Numeric/FACES): 5 - Related Data Allergies Allergy/AdvReac Type Severity Reaction Status Date / Time No Known Allergies Allergy Verified 06/13/19 19:26 Home Meds: Home Meds Clopidogrel [Plavix] 75 mg PO DAILY 04/16/15 [History] Escitalopram [Lexapro] 10 mg PO DAILY 04/16/15 [History] Lisinopril 10 mg PO DAILY 04/16/15 [History] Metoprolol Succinate [Toprol XL] 50 mg PO DAILY 04/16/15 [History] Nitroglycerin [Nitrostat] 0.4 mg SL ASDIRECTED 04/16/15 [History] Cyclobenzaprine [Flexeril] 10 mg PO TID 06/13/19 [History] Diclofenac Sodium 4 g TOP ASDIRECTED 06/13/19 [History] Pantoprazole Sodium [Protonix] 40 mg PO DAILY 06/13/19 [History] atorvaSTATin [Lipitor] 80 mg PO DAILY 06/13/19 [History] traMADol HCl [Tramadol HCl] 1 tab PO Q8H PRN 06/13/19 [History] Past Medical History HEENT History: Reports: Impaired Vision Other HEENT History: tinnitus Cardiovascular History: Reports: Angina, Hypertension, [place], Stents Respiratory History: Reports: Pneumonia, Recurrent Gastrointestinal History: Reports: Gastritis, Hemorrhoids, Other (See Below) Other Gastrointestinal History: Abd pain - unkown etiology- related to eating started in 80s started with salad bar, little blood when poops occasionally ulcer Musculoskeletal History: Reports: Fracture Other Musculoskeletal History: wrist, left arm Neurological History: Reports: CVA Other Neuro History: cerebroangioplasty with stent Psychiatric History: Reports: Anxiety Other Psychiatric History: smokes, uses pot - Infectious Disease History Infectious Disease History: Reports: Chicken Pox, Measles, Mumps - Past Surgical History Cardiovascular Surgical History: Reports: Coronary Artery Stent Respiratory Surgical History: Reports: None GI Surgical History: Reports: EGD Social & Family History - Family History Family Medical History: Noncontributory - Caffeine Use Caffeine Use: Reports: None ED ROS GENERAL - Review of Systems Review Of Systems: See Below Constitutional: Reports: No Symptoms HEENT: Reports: No Symptoms Respiratory: Reports: No Symptoms Cardiovascular: Reports: No Symptoms Endocrine: Reports: No Symptoms GI/Abdominal: Reports: Abdominal Pain, Nausea, Vomiting. Denies: Anorexia, Black Stool, Bloody Stool, Constipation, Diarrhea, Difficulty Swallowing, Distension, Flatus, Hematemesis, Hematochezia, Melena : Reports: No Symptoms Musculoskeletal: Reports: No Symptoms Skin: Reports: No Symptoms Neurological: Reports: No Symptoms Psychiatric: Reports: No Symptoms ED EXAM, GI/ABD - Physical Exam Exam: See Below Exam Limited By: No Limitations General Appearance: Alert, WD/WN, Moderate Distress Eyes: Bilateral: Normal Appearance Ears: Normal External Exam, Normal Canal, Hearing Grossly Normal, Normal TMs Nose: Normal Inspection, No Blood Throat/Mouth: Normal Inspection, Normal Lips, Normal Oropharynx, Normal Voice, No Airway Compromise Head: Atraumatic, Normocephalic Neck: Normal Inspection Respiratory/Chest: No Respiratory Distress, Lungs Clear, Normal Breath Sounds, No Accessory Muscle Use Cardiovascular: Regular Rate, Rhythm, No Edema GI/Abdominal Exam: Soft, Non-Tender, No Distention, No Mass, Abnormal Bowel Sounds (decreased). No: Distended, Guarding, Rigid, Rebound, Tender Back Exam: Normal Inspection. No: CVA Tenderness (R), CVA Tenderness (L) Extremities: Normal Inspection, Normal Range of Motion, Non-Tender, No Pedal Edema Neurological: Alert, Oriented, CN II-XII Intact, Normal Cognition, No Motor/ Sensory Deficits Psychiatric: Normal Affect, Normal Mood Skin Exam: Warm, Dry, Intact, Normal Color, No Rash Course - Vital Signs Text/Narrative:: After his 2nd liter of IV fluids he felt better, is not requiring any more pain meds. Wants to go home. Will encourage outpatient follow up and work up. Last Recorded V/S: Last Vital Signs Temp 37.1 C 06/13/19 20:02 Pulse 54 L 06/13/19 21:39 Resp 19 06/13/19 21:39 BP 125/52 L 06/13/19 21:39 Pulse Ox 93 L 06/13/19 21:39 - Orders/Labs/Meds Orders: Active Orders 24 hr Category Date Time Status Iopamidol [Isovue-300 (61%)] Med 06/13/19 19:45 Active 100 ml IV . DIRECTED Sodium Chloride 0.9% [Normal Saline] 80 ml Med 06/13/19 19:45 Active IV ASDIRECTED Sodium Chloride 0.9% [Saline Flush] Med 06/13/19 19:25 Active 10 ml FLUSH ASDIRECTED PRN Saline Lock Insert [OM.PC] Routine Oth 06/13/19 19:25 Ordered Medication Orders Sodium Chloride (Normal Saline) 80 mls @ 3 mls/sec IV ASDIRECTED AVRIL Last Admin: 06/13/19 20:21 Dose: 3 mls/sec Iopamidol (Isovue-300 (61%)) 100 ml IV . DIRECTED AVRIL Last Admin: 06/13/19 20:21 Dose: 100 ml Sodium Chloride (Saline Flush) 10 ml FLUSH ASDIRECTED PRN PRN Reason: Keep Vein Open Last Admin: 06/13/19 20:21 Dose: 10 ml Admin: 06/13/19 19:56 Dose: 10 ml Labs: Laboratory Tests 06/13/19 06/13/19 Range/Units 19:57 19:57 WBC 15.3 H (4.5-11.0) K/uL RBC 5.12 (4.30-5.90) M/uL Hgb 16.4 H D (12.0-15.0) g/dL Hct 49.7 (40.0-54.0) % MCV 97 (80-98) fL MCH 32 H (27-31) pg MCHC 33 (32-36) % Plt Count 252 (150-400) K/uL Sodium 137 L (140-148) mmol/L Potassium 4.0 (3.6-5.2) mmol/L Chloride 100 (100-108) mmol/L Carbon Dioxide 22 (21-32) mmol/L Anion Gap 19.0 H (5.0-14.0) mmol/L BUN 28 H D (7-18) mg/dL Creatinine 1.4 H (0.8-1.3) mg/dL Est Cr Clr Drug Dosing 55.41 mL/min Estimated GFR (MDRD) 52 L (>60) Glucose 118 H (74-106) mg/dL Calcium 9.6 D (8.5-10.1) mg/dL Meds: Medications Generic Name Dose Route Start Last Admin Trade Name Freq PRN Reason Stop Dose Admin Sodium Chloride 80 mls @ 3 mls/sec 06/13/19 19:45 06/13/19 20:21 Normal Saline IV 3 mls/sec ASDIRECTED AVRIL Administration Iopamidol 100 ml 06/13/19 19:45 06/13/19 20:21 Isovue-300 (61%) IV 100 ml . DIRECTED AVRIL Administration Sodium Chloride 10 ml 06/13/19 19:25 06/13/19 20:21 Saline Flush FLUSH 10 ml ASDIRECTED PRN Administration Keep Vein Open Discontinued Medications Generic Name Dose Route Start Last Admin Trade Name Freq PRN Reason Stop Dose Admin Hydromorphone HCl 0.5 mg 06/13/19 19:33 06/13/19 19:56 Dilaudid IVPUSH 06/13/19 19:34 0.5 mg ONETIME ONE Administration Hydromorphone HCl 0.5 mg 06/13/19 20:07 06/13/19 20:12 Dilaudid IVPUSH 06/13/19 20:08 0.5 mg ONETIME ONE Administration Hydromorphone HCl 0.5 mg 06/13/19 20:55 06/13/19 21:05 Dilaudid IVPUSH 06/13/19 20:56 0.5 mg ONETIME ONE Administration Lactated Ringer's 1,000 mls @ 1,000 mls/hr 06/13/19 20:43 06/13/19 20:55 Ringers, Lactated IV 06/13/19 21:42 1,000 mls/hr BOLUS ONE Administration Lactated Ringer's 1,000 mls @ 1,000 mls/hr 06/13/19 21:33 06/13/19 21:43 Ringers, Lactated IV 06/13/19 22:32 1,000 mls/hr BOLUS ONE Administration Ondansetron HCl 4 mg 06/13/19 19:43 06/13/19 19:56 Zofran IVPUSH 06/13/19 19:44 4 mg ONETIME ONE Administration Simethicone 160 mg 06/13/19 19:24 06/13/19 19:56 Simethicone PO 06/13/19 19:25 160 mg ONETIME ONE Administration - Radiology Interpretation Free Text/Narrative:: CT abd and pelvis with IV contrast-neg CT Results Date: 06/13/19 Departure - Departure Time of Disposition: 22:44 Disposition: Home, Self-Care 01 Condition: Fair Clinical Impression: Abdominal pain of unknown etiology - Discharge Information *PRESCRIPTION DRUG MONITORING PROGRAM REVIEWED*: No *COPY OF PRESCRIPTION DRUG MONITORING REPORT IN PATIENT BRYSON: No - My Orders Last 24 Hours: My Active Orders 06/13/19 19:25 Sodium Chloride 0.9% [Saline Flush] 10 ml FLUSH ASDIRECTED PRN Saline Lock Insert [OM.PC] Routine 06/13/19 19:45 Iopamidol [Isovue-300 (61%)] 100 ml IV . DIRECTED Sodium Chloride 0.9% [Normal Saline] 80 ml IV ASDIRECTED - Assessment/Plan Last 24 Hours: My Active Orders 06/13/19 19:25 Sodium Chloride 0.9% [Saline Flush] 10 ml FLUSH ASDIRECTED PRN Saline Lock Insert [OM.PC] Routine 06/13/19 19:45 Iopamidol [Isovue-300 (61%)] 100 ml IV . DIRECTED Sodium Chloride 0.9% [Normal Saline] 80 ml IV ASDIRECTED
[2019-06-13] MEDS ORDERED: Sodium Chloride 0.9% 80 ML IV SCH (19:45)
[2019-06-13] MEDS ORDERED: Iopamidol 612 MG/ML 100 ML Bottle IV SCH (19:45)
[2019-06-13] MEDS: Sodium Chloride 0.9% 10 ML Syringe FLUSH PRN ×2 (19:56→20:21)
[2019-06-13] MEDS ORDERED: Lactated Ringers 1,000 ML IV ONE (20:43)
--- NOTE | 2019-06-13 20:55 | CRLCT ---
Indication: Abdominal pain Technique: Contrast enhanced axial CT imaging through the abdomen and pelvis. 100 cc Isovue-300 contrast agent was administered intravenously. Sagittal and coronal reconstructions are provided. Comparison: CT abdomen pelvis without contrast 05/15/2017 Findings: The included lung bases are clear. There is no significant abnormality of the liver, gallbladder, spleen, adrenal glands, and kidneys. There is mild prominence of the pancreatic duct, measuring up to 3 mm, at the upper limits of normal; this is unchanged since 2017. There is normal volume and attenuation of the pancreatic parenchyma. There is no abdominal lymphadenopathy. There is normal enhancement of the portal venous system. There is normal caliber of the abdominal aorta with mild atherosclerotic calcification present. No significant abnormality is demonstrated in the stomach. There is nonspecific mild air distention of multiple proximal small bowel loops, including the duodenal sweep, with intervening nondistended bowel. Small duodenal diverticulum is noted. The distal small bowel demonstrates normal caliber. The appendix is noninflamed. The colon is unremarkable. No significant inflammatory changes are demonstrated in the mesentery. Degenerative changes are noted in the lower lumbar spine. Impression: 1. Nonspecific mild distention of multiple proximal small bowel loops. There is intervening nondistended bowel, making small-bowel obstruction unlikely. 2. Incidental small duodenal diverticulum. No evidence of diverticulitis. 3. Stable prominence of the pancreatic duct measuring at the upper limits of normal. Please note that all CT scans at this facility use dose modulation, iterative reconstruction, and/or weight-based dosing when appropriate to reduce radiation dose to as low as reasonably achievable. Dictated by Saba Blandon MD @ Jun 13 2019 8:41PM Signed by Dr. Saba Blandon @ Jun 13 2019 8:54PM
[2019-06-13] MEDS: Lactated Ringers 1,000 ML IV ONE (21:43)
[2019-06-13 23:09] VITALS: BP 104/56; PULSE 64
== END 2019-06-13 23:09 | disposition home or self-care (01) ==
LOC: JP.ED 19:16 → UNDOADMOB 21:18 → JP.MS 21:18 → UNDODISOB 23:11
DX: R10.30 Lower abdominal pain, unspecified (principal); I10 Essential (primary) hypertension; F41.9 Anxiety disorder, unspecified; I25.2 Old myocardial infarction; I20.9 Angina pectoris, unspecified; Z86.73 Personal history of transient ischemic attack (TIA), and cerebral infarction without residual deficits; Z79.02 Long term (current) use of antithrombotics/antiplatelets; Z95.5 Presence of coronary angioplasty implant and graft
CPT/HCPCS: 36415; 74177; 80048; 85027; A9270; J1170; J2405; J7030; J7120; Q9967

== ENCOUNTER 2020-05-05 13:07 | Emergency (ER) | payer MEDICARE ==
[2020-05-05] MEDS ORDERED: fentaNYL 100 MCG/2 ML SDV IVPUSH PRN (13:11)
[2020-05-05] MEDS ORDERED: Ondansetron 4 MG/2 ML SDV IVPUSH ONE (13:12)
[2020-05-05] MEDS ORDERED: fentaNYL 100 MCG/2 ML SDV IVPUSH ONE (13:41)
[2020-05-05] MEDS ORDERED: HYDROmorphone 1 MG/ML Syringe IVPUSH PRN (14:32)
[2020-05-05] MEDS ORDERED: Haloperidol Lactate 5 MG/ML SDV IVPUSH ONE (14:39)
--- NOTE | 2020-05-05 14:40 | EDM.PDOC ---
ED HPI GENERAL MEDICAL PROBLEM - General Chief Complaint: Abdominal Pain Stated Complaint: STOMACH ISSUES Time Seen by Provider: 05/05/20 13:10 - History of Present Illness INITIAL COMMENTS - FREE TEXT/NARRATIVE: 64-year-old male with a history of chronic medical problems including abdominal pain, gastritis, and coronary artery disease presents to the emergency department with severe abdominal pain. He reports it is a similar symptoms he has had in the past. Onset was this morning and was acute. It is sharp and generalized over his abdomen. It is associated with nausea and vomiting. It is severe in quality. The pain does not radiate. It is not associated with shortness of breath, fever or chills. The patient has had extensive work-up for it in the past and no etiology was found. He admits to smoking marijuana but not on a daily basis. There is documentation his records stating that the pain gets better with a hot bath. The patient currently takes Protonix on a daily basis. Denies diarrhea. He denies a history of pancreatitis. Upper Abdomen Pain Score (Numeric/FACES): 10 - Related Data Allergies Allergy/AdvReac Type Severity Reaction Status Date / Time No Known Allergies Allergy Verified 05/05/20 13:39 Home Meds: Home Meds Clopidogrel [Plavix] 75 mg PO DAILY 04/16/15 [History] Escitalopram [Lexapro] 10 mg PO DAILY 04/16/15 [History] Lisinopril 10 mg PO DAILY 04/16/15 [History] Metoprolol Succinate [Toprol XL] 50 mg PO DAILY 04/16/15 [History] Nitroglycerin [Nitrostat] 0.4 mg SL ASDIRECTED 04/16/15 [History] Cyclobenzaprine [Flexeril] 10 mg PO TID 06/13/19 [History] Diclofenac Sodium 4 g TOP ASDIRECTED 06/13/19 [History] Pantoprazole Sodium [Protonix] 40 mg PO DAILY 06/13/19 [History] atorvaSTATin [Lipitor] 80 mg PO DAILY 06/13/19 [History] traMADol HCl [Tramadol HCl] 1 tab PO Q8H PRN 06/13/19 [History] Past Medical History HEENT History: Reports: Impaired Vision Other HEENT History: tinnitus Cardiovascular History: Reports: Angina, Hypertension, [place], Stents Other Cardiovascular History: bradycardia Respiratory History: Reports: Pneumonia, Recurrent Gastrointestinal History: Reports: Gastritis, Hemorrhoids, Other (See Below) Other Gastrointestinal History: Abd pain - unkown etiology- related to eating started in 80s started with salad bar, little blood when poops occasionally ulc er Musculoskeletal History: Reports: Fracture Other Musculoskeletal History: wrist, left arm Neurological History: Reports: CVA Other Neuro History: cerebroangioplasty with stent Psychiatric History: Reports: Anxiety Other Psychiatric History: smokes, uses pot - Infectious Disease History Infectious Disease History: Reports: Chicken Pox, Measles, Mumps - Past Surgical History Cardiovascular Surgical History: Reports: Coronary Artery Stent Respiratory Surgical History: Reports: None GI Surgical History: Reports: EGD Social & Family History - Family History Family Medical History: Noncontributory - Tobacco Use Smoking Status *Q: Light Tobacco Smoker Years of Tobacco use: 45 Packs/Tins Daily: 0.5 - Caffeine Use Caffeine Use: Reports: None - Recreational Drug Use Recreational Drug Use: No ED ROS GENERAL - Review of Systems Review Of Systems: See Below Constitutional: Denies: Fever, Chills, Diaphoresis HEENT: Reports: No Symptoms Respiratory: Reports: No Symptoms Cardiovascular: Reports: No Symptoms GI/Abdominal: Reports: Abdominal Pain. Denies: Diarrhea, Vomiting : Reports: No Symptoms Musculoskeletal: Reports: No Symptoms Skin: Reports: No Symptoms Neurological: Reports: No Symptoms Psychiatric: Reports: No Symptoms Hematologic/Lymphatic: Reports: No Symptoms Immunologic: Reports: No Symptoms ED EXAM, GI/ABD - Physical Exam Exam: See Below Exam Limited By: No Limitations General Appearance: Alert, Severe Distress Throat/Mouth: Normal Inspection, Normal Lips Neck: Normal Inspection, Supple Respiratory/Chest: No Respiratory Distress, Lungs Clear, Normal Breath Sounds Cardiovascular: Regular Rate, Rhythm, No Murmur GI/Abdominal Exam: Guarding, Tender Extremities: Normal Inspection Neurological: Alert, Oriented, No Motor/Sensory Deficits Psychiatric: Anxious Skin Exam: Warm, Dry Course - Vital Signs Text/Narrative:: Patient has a history of chronic abdominal pain as well as cardiovascular disease presents to the emergency department with acute on chronic abdominal pain. He refused all testing including EKG blood and urine tests. He and his state he has had similar problems in the past and responded well to Dilaudid and requests the same medication as in the past. The patient is aware that I cannot diagnosed any new condition such as pancreatitis abdomen by exam alone. He has a history of marijuana use and admits to occasional use but not daily use. The past it is noted that his symptoms improved with hot baths. The patient may have cyclical cannabis syndrome however it has not been a diagnosis for him in the past. Today patient was treated with a liter of IV fluids, fentanyl, Dilaudid and Haldol. He slept for a period of time and noted his symptoms are improved. He is ready for discharge. His vital signs are stable. The patient should follow-up with his primary care provider sometime in the near future. He will return here as needed. Last Recorded V/S: Last Vital Signs Temp 36.7 C 05/05/20 13:13 Pulse 51 L 05/05/20 16:16 Resp 15 05/05/20 16:16 BP 148/76 H 05/05/20 16:16 Pulse Ox 96 05/05/20 16:16 - Orders/Labs/Meds Orders: Active Orders 24 hr Category Date Time Status EKG Documentation Completion [RC] ASDIRECTED Care 05/05/20 13:13 Active HYDROmorphone [Dilaudid] Med 05/05/20 14:32 Active 1 mg IVPUSH Q1H PRN Sodium Chloride 0.9% [Normal Saline] 1,000 ml Med 05/05/20 14:45 Active IV ASDIRECTED EKG 12 Lead [EK] Routine Ther 05/05/20 13:12 Stop Req Medication Orders Hydromorphone HCl (Dilaudid) 1 mg IVPUSH Q1H PRN PRN Reason: Pain Last Admin: 05/05/20 15:10 Dose: 1 mg Documented by: PREILOR Sodium Chloride (Normal Saline) 1,000 mls @ 1,000 mls/hr IV ASDIRECTED AVRIL Last Admin: 05/05/20 15:11 Dose: 1,000 mls/hr Documented by: PREILOR Meds: Medications Generic Name Dose Route Start Last Admin Trade Name Freq PRN Reason Stop Dose Admin Hydromorphone HCl 1 mg 05/05/20 14:32 05/05/20 15:10 Dilaudid IVPUSH 1 mg Q1H PRN Administration Pain Sodium Chloride 1,000 mls @ 1,000 mls/hr 05/05/20 14:45 05/05/20 15:11 Normal Saline IV 1,000 mls/hr ASDIRECTED AVRIL Administration Discontinued Medications Generic Name Dose Route Start Last Admin Trade Name Freq PRN Reason Stop Dose Admin Fentanyl 50 mcg 05/05/20 13:11 Sublimaze IVPUSH Q6H PRN Pain (severe 7-10) Fentanyl 100 mcg 05/05/20 13:41 05/05/20 13:31 Sublimaze IVPUSH 05/05/20 13:42 100 mcg ONETIME ONE Administration Haloperidol Lactate 5 mg 05/05/20 14:39 05/05/20 15:07 Haldol IVPUSH 05/05/20 14:40 5 mg ONETIME ONE Administration Ondansetron HCl 4 mg 05/05/20 13:12 05/05/20 13:29 Zofran IVPUSH 05/05/20 13:13 4 mg ONETIME ONE Administration Pantoprazole Sodium 80 mg 05/05/20 14:45 Protonix Iv IVPUSH .BOLUS AVRIL Departure - Departure Time of Disposition: 16:58 Disposition: 20 Condition: Good Clinical Impression: Abdominal pain Qualifiers: Abdominal location: generalized Qualified Code(s): R10.84 - Generalized abdominal pain - Discharge Information *PRESCRIPTION DRUG MONITORING PROGRAM REVIEWED*: No *COPY OF PRESCRIPTION DRUG MONITORING REPORT IN PATIENT BRYSON: No Referrals: PCP,None [Primary Care Provider] - Forms: ED Department Discharge Additional Instructions: Call your usual medications. Follow-up with your doctor in the near future. Return to the ER as needed. Sepsis Event Note (ED) - Evaluation Sepsis Screening Result: No Definite Risk - Focused Exam Vital Signs: Vital Signs Temp Pulse Resp BP Pulse Ox 05/05/20 16:16 51 L 15 148/76 H 96 05/05/20 15:15 51 L 19 169/62 H 98 05/05/20 14:15 54 L 17 157/78 H 97 05/05/20 13:43 50 L 16 152/71 H 100 05/05/20 13:13 36.7 C 54 L 18 148/82 H 100 - My Orders Last 24 Hours: My Active Orders 05/05/20 13:12 EKG 12 Lead [EK] Routine 05/05/20 13:13 EKG Documentation Completion [RC] ASDIRECTED 05/05/20 14:32 HYDROmorphone [Dilaudid] 1 mg IVPUSH Q1H PRN 05/05/20 14:45 Sodium Chloride 0.9% [Normal Saline] 1,000 ml IV ASDIRECTED - Assessment/Plan Last 24 Hours: My Active Orders 05/05/20 13:12 EKG 12 Lead [EK] Routine 05/05/20 13:13 EKG Documentation Completion [RC] ASDIRECTED 05/05/20 14:32 HYDROmorphone [Dilaudid] 1 mg IVPUSH Q1H PRN 05/05/20 14:45 Sodium Chloride 0.9% [Normal Saline] 1,000 ml IV ASDIRECTED
[2020-05-05] MEDS ORDERED: Pantoprazole 40 MG Vial IVPUSH SCH (14:45)
[2020-05-05] MEDS ORDERED: Sodium Chloride 0.9% 1,000 ML IV SCH (14:45)
[2020-05-05 16:16] VITALS: PULSE 51
[2020-05-05 16:17] VITALS: BP 148/76
== END 2020-05-05 17:48 | disposition home or self-care (01) ==
LOC: JP.ED 13:07
DX: R10.84 Generalized abdominal pain (principal); G89.29 Other chronic pain; I10 Essential (primary) hypertension; I25.2 Old myocardial infarction; F41.9 Anxiety disorder, unspecified; F17.210 Nicotine dependence, cigarettes, uncomplicated; Z79.899 Other long term (current) drug therapy; Z79.02 Long term (current) use of antithrombotics/antiplatelets; Z95.5 Presence of coronary angioplasty implant and graft; Z86.73 Personal history of transient ischemic attack (TIA), and cerebral infarction without residual deficits
CPT/HCPCS: 96361; 96374; 96375; 99284; J1170; J1630; J2405; J3010; J7030

== ENCOUNTER 2020-09-24 15:28 | Emergency (ER) | payer MEDICARE ==
--- NOTE | 2020-09-24 15:42 | EDM.PDOC ---
<Chelsy Weinstein - Last Filed: 09/24/20 15:58> ED HPI GENERAL MEDICAL PROBLEM - General Chief Complaint: Neuro Symptoms/Deficits Stated Complaint: SPEECH TROUBLES Time Seen by Provider: 09/24/20 15:40 Source of Information: Reports: Patient History Limitations: Reports: No Limitations - History of Present Illness INITIAL COMMENTS - FREE TEXT/NARRATIVE: pt is having trouble speaking and saying what he wants to say. His was at work and came home and found him like this. He thinks he got up this way in the am but is not sure. He has no difficulty moving his extremities. Onset: Today, Sudden Duration: Hour(s): Location: Reports: Face, Other ( difficulty speaking. ) Associated Symptoms: Reports: No Other Symptoms - Related Data Allergies Allergy/AdvReac Type Severity Reaction Status Date / Time No Known Allergies Allergy Verified 05/05/20 13:39 Home Meds: Home Meds Clopidogrel [Plavix] 75 mg PO DAILY 04/16/15 [History] Escitalopram [Lexapro] 10 mg PO DAILY 04/16/15 [History] Lisinopril 10 mg PO DAILY 04/16/15 [History] Metoprolol Succinate [Toprol XL] 50 mg PO DAILY 04/16/15 [History] Nitroglycerin [Nitrostat] 0.4 mg SL ASDIRECTED 04/16/15 [History] Pantoprazole Sodium [Protonix] 40 mg PO DAILY 06/13/19 [History] atorvaSTATin [Lipitor] 80 mg PO DAILY 06/13/19 [History] Past Medical History HEENT History: Reports: Impaired Vision Other HEENT History: tinnitus Cardiovascular History: Reports: Angina, Hypertension, AR, Stents Other Cardiovascular History: bradycardia Respiratory History: Reports: Pneumonia, Recurrent Gastrointestinal History: Reports: Gastritis, Hemorrhoids, Other (See Below) Other Gastrointestinal History: Abd pain - unkown etiology- related to eating started in 80s started with salad bar, little blood when poops occasionally ulcer Musculoskeletal History: Reports: Fracture Other Musculoskeletal History: wrist, left arm Neurological History: Reports: CVA Other Neuro History: cerebroangioplasty with stent Psychiatric History: Reports: Anxiety Other Psychiatric History: smokes, uses pot - Infectious Disease History Infectious Disease History: Reports: Chicken Pox, Measles, Mumps - Past Surgical History Cardiovascular Surgical History: Reports: Coronary Artery Stent Respiratory Surgical History: Reports: None GI Surgical History: Reports: EGD Social & Family History - Family History Family Medical History: No Pertinent Family History - Caffeine Use Caffeine Use: Reports: None ED ROS GENERAL - Review of Systems Review Of Systems: See Below Constitutional: Reports: No Symptoms HEENT: Reports: No Symptoms Respiratory: Reports: No Symptoms Cardiovascular: Reports: No Symptoms Endocrine: Reports: No Symptoms GI/Abdominal: Reports: No Symptoms : Reports: No Symptoms Musculoskeletal: Reports: No Symptoms Skin: Reports: No Symptoms Neurological: Reports: Headache, Trouble Speaking, Other ( difficulty speaking. ) Psychiatric: Reports: Anxiety ED EXAM, NEURO - Physical Exam Exam: See Below Text/Narrative:: pt is alert and is able to know what he wants to say but is not able to get it out. He does not have a severe headache. He thinks he got up this way but he is not sure. He was alone. His came home from work and found him like this. Exam Limited By: No Limitations General Appearance: Alert, No Apparent Distress, Anxious, Other (pupils equal and reactive. ) Ears: Normal TMs Nose: Normal Inspection Throat/Mouth: Normal Inspection Head Exam: Atraumatic Neck: Normal Inspection, Other (no evidencde of carotid bruits) Respiratory/Chest: No Respiratory Distress Cardiovascular: Regular Rate, Rhythm GI/Abdominal: Soft, Non-Tender (Male) Exam: Deferred Rectal (Males) Exam: Deferred Neurological: Alert, Normal Reflexes, Oriented x 3, Other (speech difficulty. ) Back Exam: Normal Inspection Extremities: Normal Inspection Psychiatric: Anxious Departure - Departure Disposition: DC/Tfer to Other 70 Clinical Impression: Cerebrovascular accident (CVA) Qualifiers: CVA mechanism: occlusion Precerebral and cerebral artery: middle cerebral artery Laterality of affected vessel: left Qualified Code(s): I63.512 - Cerebral infarction due to unspecified occlusion or stenosis of left middle cerebral artery - Discharge Information Referrals: PCP,None [Primary Care Provider] - Forms: ED Department Discharge <Gage Gonzalez - Last Filed: 09/24/20 20:07> Course - Vital Signs Last Recorded V/S: Last Vital Signs Temp 96.4 F L 09/24/20 16:10 Pulse 50 L 09/24/20 17:37 Resp 13 09/24/20 17:37 BP 115/71 09/24/20 17:37 Pulse Ox 95 09/24/20 17:37 - Orders/Labs/Meds Orders: Active Orders 24 hr Category Date Time Status EKG 12 Lead [EK] Routine Ther 09/24/20 15:39 Ordered Labs: Laboratory Tests 09/24/20 09/24/20 Range/Units 15:43 15:43 WBC 14.3 H (4.5-11.0) K/uL RBC 5.05 (4.30-5.90) M/uL Hgb 16.1 H (12.0-15.0) g/dL Hct 48.9 (40.0-54.0) % MCV 97 (80-98) fL MCH 32 H (27-31) pg MCHC 33 (32-36) % Plt Count 273 (150-400) K/uL Neut % (Auto) 65 (36-66) % Lymph % (Auto) 28 (24-44) % [place] % (Auto) 6 (2-6) % Eos % (Auto) 1 L (2-4) % Baso % (Auto) 0 (0-1) % Sodium 139 L (140-148) mmol/L Potassium 3.9 (3.6-5.2) mmol/L Chloride 104 (100-108) mmol/L Carbon Dioxide 26 (21-32) mmol/L Anion Gap 12.9 (5.0-14.0) mmol/L BUN 15 (7-18) mg/dL Creatinine 1.0 (0.8-1.3) mg/dL Est Cr Clr Drug Dosing 78.07 mL/min Estimated GFR (MDRD) > 60 (>60) Glucose 110 H (74-106) mg/dL Calcium 9.1 (8.5-10.1) mg/dL Total Bilirubin 0.9 (0.2-1.0) mg/dL AST 17 (15-37) U/L ALT 28 (12-78) U/L Alkaline Phosphatase 66 (46-116) U/L Creatine Kinase 69 (39-308) U/L Total Protein 7.3 (6.4-8.2) g/dL Albumin 4.0 (3.4-5.0) g/dL Globulin 3.3 (2.3-3.5) g/dL Albumin/Globulin Ratio 1.2 (1.2-2.2) Meds: Medications Discontinued Medications Generic Name Dose Route Start Last Admin Trade Name Everardo PRN Reason Stop Dose Admin Sodium Chloride 1,000 mls @ 100 mls/hr 09/24/20 15:45 09/24/20 16:09 Normal Saline IV 100 mls/hr ASDIRECTED AVRIL Administration Sodium Chloride 100 mls @ 3 mls/sec 09/24/20 16:30 09/24/20 16:28 Normal Saline IV 3 mls/sec ASDIRECTED AVRIL Administration Heparin Sodium/Dextrose Confirm 09/24/20 17:28 Heparin 25,000 Units In D5w 500 Ml Administered 09/24/20 17:29 Dose 500 mls @ as directed .ROUTE .STK-MED ONE Heparin Sodium/Dextrose 25,000 units in 500 mls @ 18.942 mls/hr 09/24/20 17:45 09/24/20 17:44 Heparin 25,000 Units In D5w 500 Ml IV 12 units/kg/hr TITRATE AVRIL 18.942 mls/hr Administration Protocol 12 UNITS/KG/HR Iopamidol 100 ml 09/24/20 16:30 09/24/20 16:28 Isovue-370 (76%) IV 100 ml . DIRECTED AVRIL Administration Sodium Chloride 10 ml 09/24/20 16:18 09/24/20 16:27 Saline Flush FLUSH 09/24/20 16:19 10 ml ONETIME ONE Administration - Re-Assessments/Exams Free Text/Narrative Re-Assessment/Exam: 09/24/20 17:29 Occlusion of the distal M1 segment of the left middle cerebral artery at its trifurcation, with preserved flow in an anterior M3 branch and reconstituted flow in other distal M3 branches within the sylvian fissure. No other large vessel occlusions, evidence of dissection, or intracranial aneurysm identified. Report called to Dr. Gonzalez at 5:05 p.m. on 09/24/2020. Above findings were discussed with interventional neurology at [facility] and transfer was arranged. Heparin drip was requested. Patient remained stable. Departure - Departure Time of Disposition: 18:07 Sepsis Event Note (ED) - Focused Exam Vital Signs: Vital Signs Temp Pulse Resp BP Pulse Ox 09/24/20 17:37 50 L 13 115/71 95 09/24/20 17:00 54 L 12 128/70 97 09/24/20 16:45 53 L 13 116/81 96 09/24/20 16:10 96.4 F L 55 L 11 L 120/72 97 09/24/20 16:05 55 L 11 L 120/72 97 09/24/20 15:37 96.4 F L 56 L 13 110/64 99
[2020-09-24] MEDS ORDERED: Sodium Chloride 0.9% 1,000 ML IV SCH (15:45)
--- NOTE | 2020-09-24 15:55 | CT ---
Head wo Cont CLINICAL HISTORY: Problems with speech COMPARISON: None TECHNIQUE: Transverse scans were obtained from the base of the skull through the vertex without IV contrast on a multislice, multidetector CT scanner. Auto dosage reduction and iterative reconstruction techniques employed. FINDINGS: There is some encephalomalacia in the left temporal lobe likely from previous ischemic infarct.. There is no mass effect, hemorrhage, or extraaxial collection. The basal cisterns and sulci over the convexities are normal. The ventricles are normal for age. IMPRESSION: There is moderate encephalomalacia involving the left temporal lobe which is likely from previous ischemic infarct of remote chronology No acute intracranial findings
[2020-09-24] MEDS ORDERED: Sodium Chloride 0.9% 10 ML Syringe FLUSH ONE (16:18)
[2020-09-24] MEDS ORDERED: Sodium Chloride 0.9% 100 ML IV SCH (16:30)
[2020-09-24] MEDS ORDERED: Iopamidol 755 Mg/ML 100 ML Bottle IV SCH (16:30)
--- NOTE | 2020-09-24 17:11 | CRLCT ---
INDICATION: Acute stroke, aphasia. TECHNIQUE: After standard noncontrast head CT, high resolution axial CT images acquired through the head and neck following rapid intravenous administration of iodinated contrast. Multiplanar MIPS of cranial and cervical vasculature performed. FINDINGS: There is acute thrombus occluding the distal left M1 segment. There is ischemic change in the left insula and anterior temporal lobe as well as posterior frontal lobe characterized by hypodensity and loss of islas-white matter differentiation. There is no intracranial hemorrhage. In the neck, there is carotid atherosclerotic disease without significant stenosis. IMPRESSION: Distal left M1 occlusion. Preliminary results were reported to Dr. Gonzalez at 5:05 p.m. on 09/24/[address] Gregory. Randall Petty MD [facility] Please note that all CT scans at this facility use dose modulation, iterative reconstruction, and/or weight-based dosing when appropriate to reduce radiation dose to as low as reasonably achievable. Dictated by Randall Petty MD @ Sep 24 2020 8:03PM Signed by Dr. Randall Petty @ Sep 24 2020 8:08PM
--- NOTE | 2020-09-24 17:11 | CRLCT ---
INDICATION: Acute stroke, aphasia. TECHNIQUE: After standard noncontrast head CT, high resolution axial CT images acquired through the head and neck following rapid intravenous administration of iodinated contrast. Multiplanar MIPS of cranial and cervical vasculature performed. FINDINGS: There is acute thrombus occluding the distal left M1 segment. There is ischemic change in the left insula and anterior temporal lobe as well as posterior frontal lobe characterized by hypodensity and loss of islas-white matter differentiation. There is no intracranial hemorrhage. In the neck, there is carotid atherosclerotic disease without significant stenosis. IMPRESSION: Distal left M1 occlusion. Preliminary results were reported to Dr. Gonzalez at 5:05 p.m. on 09/24/[address] Gregory. Randall Petty MD Neurointerventional [facility] Please note that all CT scans at this facility use dose modulation, iterative reconstruction, and/or weight-based dosing when appropriate to reduce radiation dose to as low as reasonably achievable. Dictated by Randall Petty MD @ Sep 24 2020 8:08PM Signed by Dr. Randall Petty @ Sep 24 2020 8:09PM
[2020-09-24] MEDS ORDERED: Heparin Sodium/D5W 500 ML ONE (17:28)
[2020-09-24] MEDS ORDERED: Heparin Sodium/D5W 25,000 UNITS/500 ML BAG IV SCH ×2 (17:30→17:45)
[2020-09-24 17:38] VITALS: BP 115/71; PULSE 50
== END 2020-09-24 18:06 | disposition other institution (70) ==
LOC: JP.ED 15:28
DX: I63.512 Cerebral infarction due to unspecified occlusion or stenosis of left middle cerebral artery (principal); I10 Essential (primary) hypertension; F17.200 Nicotine dependence, unspecified, uncomplicated; I25.2 Old myocardial infarction; Z95.5 Presence of coronary angioplasty implant and graft; Z79.02 Long term (current) use of antithrombotics/antiplatelets; Z79.899 Other long term (current) drug therapy
CPT/HCPCS: 36415; 70450; 70450-26; 70496; 70498; 80053; 82550; 85025; 93005; 93010; 96374; 99285-25; J1644; J7030; Q9967

== ENCOUNTER 2021-12-13 07:16 | Emergency (ER) | payer MEDICARE ==
[2021-12-13] MEDS ORDERED: Sodium Chloride 0.9% 10 ML Syringe FLUSH PRN (07:33)
[2021-12-13] MEDS ORDERED: fentaNYL 100 MCG/2 ML SDV IVPUSH ONE (07:33)
[2021-12-13] MEDS ORDERED: Ondansetron 4 MG/2 ML SDV IVPUSH ONE (07:33)
[2021-12-13] MEDS ORDERED: Lactated Ringers 1,000 ML IV SCH (07:45)
[2021-12-13] MEDS ORDERED: Iopamidol 612 MG/ML 100 ML Bottle IV PRN (08:07)
[2021-12-13] MEDS ORDERED: Ketorolac 30 MG/ML SDV IVPUSH ONE (08:12)
[2021-12-13] MEDS ORDERED: Sodium Chloride 0.9% 100 ML IV SCH (08:15)
[2021-12-13] MEDS ORDERED: HYDROmorphone 1 MG/ML Syringe IVPUSH ONE (08:16)
[2021-12-13] MEDS ORDERED: LORazepam 2 MG/ML SDV IVPUSH ONE (10:43)
[2021-12-13] MEDS ORDERED: Haloperidol Lactate 5 MG/ML SDV IVPUSH ONE (10:50)
[2021-12-13] MEDS ORDERED: Haloperidol Lactate 5 MG/ML SDV ONE (13:53)
[2021-12-13 17:29] VITALS: BP 132/51; PULSE 84
== END 2021-12-13 18:07 | disposition home or self-care (01) ==
LOC: JP.ED 07:16
DX: F12.188 Cannabis abuse with other cannabis-induced disorder (principal); I25.10 Atherosclerotic heart disease of native coronary artery without angina pectoris; I10 Essential (primary) hypertension; I25.2 Old myocardial infarction; F41.9 Anxiety disorder, unspecified; Z86.73 Personal history of transient ischemic attack (TIA), and cerebral infarction without residual deficits; Z79.899 Other long term (current) drug therapy
CPT/HCPCS: 36415; 80053; 80305-QW; 80307; 81001; 83605; 83690; 84484; 85025; 96374; 96375; 99284-25; 99285; J1170; J1630; J2060; J2405; J3010; J3490; J7120

== ENCOUNTER 2023-01-29 00:24 | Emergency (ER) | payer MEDICARE ==
[2023-01-29] MEDS ORDERED: Sodium Chloride 0.9% 10 ML Syringe FLUSH PRN (01:01)
[2023-01-29] MEDS ORDERED: HYDROmorphone 0.5 MG/0.5 ML Syringe IVPUSH ONE (01:01)
[2023-01-29] MEDS ORDERED: Pantoprazole 40 MG Vial IVPUSH ONE (01:01)
[2023-01-29 01:22] LABS: BASOPHILS ABSOLUTE AUTO 0.09 K/uL (0.00-0.10); BASOPHILS PERCENT AUTO 0.5 % (0.1-1.3); EOSINOPHILS ABSOLUTE AUTO 0.03 K/uL (0.00-0.40); EOSINOPHILS PERCENT AUTO 0.2 % (0.0-5.4); HEMATOCRIT 46.1 % (38.4-49.7); IMMATURE GRAN ABSOLUTE AUTO 0.16 K/uL (0.00-0.23); IMMATURE GRAN PERCENT AUTO 0.9 % (0.0-0.7); MEAN CORPUSCULAR HEMOGLOBIN 31.3 pg (31.6-35.5); MEAN CORPUSCULAR HGB CONC 34.7 g/dL (31.6-35.5); MONOCYTES PERCENT AUTO 10.5 % (3.3-12.6); NEUTROPHILS ABSOLUTE AUTO 13.05 K/uL (1.0-7.6); NEUTROPHILS PERCENT AUTO 71.9 % (40.0-78.1); PLATELET COUNT,PLT 319 K/uL (130-375); RED BLOOD CELL COUNT 5.12 M/uL (4.14-5.76); WHITE BLOOD CELL COUNT,WBC 18.1 K/uL (3.2-11.0)
[2023-01-29] MEDS ORDERED: Iopamidol 612 MG/ML 100 ML Bottle IV STA (01:28)
[2023-01-29] MEDS ORDERED: Sodium Chloride 0.9% 50 ML IV STA (01:29)
[2023-01-29 01:47] LABS: A/G RATIO 0.8 (1.2-2.2); ALANINE AMINOTRANSFERASE,ALT 33 U/L (12-78); ALBUMIN 3.6 g/dL (3.4-5.0); ALKALINE PHOSPHATASE 81 U/L (46-116); ASPARTATE AMNIOTRANSFERASE,AST 24 U/L (15-37); BILIRUBIN TOTAL 0.8 mg/dL (0.2-1.0); BLOOD UREA NITROGEN,BUN 22 mg/dL (7-18); CALCIUM 9.6 mg/dL (8.5-10.1); CARBON DIOXIDE,CO2 26 mmol/L (21-32); CHLORIDE,CL 97 mmol/L (100-108); CREATININE 1.3 mg/dL (0.8-1.3); EST CRCL DRUG DOSING (CG) 58.15 mL/min; ESTIMATED GFR 61 mL/min (>60); GLUCOSE RANDOM 119 mg/dL (74-106); LIPASE 121 U/L (73-393); POTASSIUM,K 3.4 mmol/L (3.6-5.2); PROTEIN TOTAL,TP 8.1 g/dL (6.4-8.2); SODIUM,NA 134 mmol/L (140-148)
[2023-01-29 01:48] LABS: ANION GAP 14.4 mmol/L (5.0-14.0)
[2023-01-29 04:32] VITALS: BP 110/67; PULSE 77
[2023-01-29] MEDS ORDERED: Sucralfate 1 GM Tab PO ONE (04:53)
== END 2023-01-29 06:58 | disposition home or self-care (01) ==
LOC: JP.ED 00:24
DX: F41.1 Generalized anxiety disorder (principal); I25.119 Atherosclerotic heart disease of native coronary artery with unspecified angina pectoris; K29.00 Acute gastritis without bleeding; D72.829 Elevated white blood cell count, unspecified; F17.200 Nicotine dependence, unspecified, uncomplicated; R45.851 Suicidal ideations; I25.2 Old myocardial infarction; Z86.73 Personal history of transient ischemic attack (TIA), and cerebral infarction without residual deficits; Z79.01 Long term (current) use of anticoagulants; Z79.899 Other long term (current) drug therapy
CPT/HCPCS: 36415; 74177; 80053; 83605; 83690; 85025; 86140; 96374; 96375; 99285; A9270; C9113; J1170; J3490; Q9967

== ENCOUNTER 2023-01-30 10:43 | Emergency (ER) | payer MEDICARE | END 2023-01-30 12:36 | disposition left against medical advice (07) | LOC: JP.ED 10:43 | DX: Z53.21 Procedure and treatment not carried out due to patient leaving prior to being seen by health care provider (principal) ==

== ENCOUNTER 2024-02-11 21:06 | Emergency (ER) | payer MEDICARE ==
[2024-02-11] MEDS ORDERED: Naloxone 0.4 MG/ML SDV IVPUSH PRN (21:32)
[2024-02-11 21:39] LABS: BASOPHILS ABSOLUTE AUTO 0.07 K/uL (0.00-0.10); BASOPHILS PERCENT AUTO 0.3 % (0.1-1.3); EOSINOPHILS PERCENT AUTO 0.1 % (0.0-5.4); HEMATOCRIT 47.1 % (38.4-49.7); HEMOGLOBIN 16.2 g/dL (12.9-16.9); IMMATURE GRAN ABSOLUTE AUTO 0.14 K/uL (0.00-0.23); IMMATURE GRAN PERCENT AUTO 0.6 % (0.0-0.7); LYMPHOCYTES ABSOLUTE AUTO 1.12 K/uL (0.8-3.3); LYMPHOCYTES PERCENT AUTO 4.4 % (11.4-47.7); MEAN CORPUSCULAR HEMOGLOBIN 31.7 pg (31.6-35.5); MEAN CORPUSCULAR HGB CONC 34.4 g/dL (31.6-35.5); MEAN CORPUSCULAR VOLUME 92.2 fL (81.4-99.0); MONOCYTES ABSOLUTE AUTO 1.94 K/uL (0.20-0.90); MONOCYTES PERCENT AUTO 7.7 % (3.3-12.6); NEUTROPHILS PERCENT AUTO 86.9 % (40.0-78.1); PLATELET COUNT,PLT 406 K/uL (130-375); RED BLOOD CELL COUNT 5.11 M/uL (4.14-5.76); WHITE BLOOD CELL COUNT,WBC 25.2 K/uL (3.2-11.0)
[2024-02-11 21:41] LABS: EOSINOPHILS ABSOLUTE AUTO 0.02 K/uL (0.00-0.40)
[2024-02-11] MEDS: HYDROmorphone 0.5 MG/0.5 ML Syringe IVPUSH ONE (21:56)
[2024-02-11] MEDS: Sodium Chloride 0.9% 1,000 ML IV SCH (21:56)
[2024-02-11] MEDS ORDERED: Sodium Chloride 0.9% 50 ML IV SCH (22:00)
[2024-02-11] MEDS ORDERED: Iopamidol 612 MG/ML 100 ML Bottle IV SCH (22:00)
[2024-02-11 22:02] LABS: ALANINE AMINOTRANSFERASE,ALT 33 U/L (12-78); ALBUMIN 4.5 g/dL (3.4-5.0); ALKALINE PHOSPHATASE 94 U/L (46-116); ANION GAP 11.7 mmol/L (5.0-14.0); ASPARTATE AMNIOTRANSFERASE,AST 28 U/L (15-37); BILIRUBIN DIRECT 0.23 mg/dL (0.0-0.2); BILIRUBIN INDIRECT 0.87; BILIRUBIN TOTAL 1.1 mg/dL (0.2-1.0); BLOOD UREA NITROGEN,BUN 25 mg/dL (7-18); C-REACTIVE PROTEIN < 0.50 mg/dL (<0.50); CARBON DIOXIDE,CO2 26 mmol/L (21-32); CHLORIDE,CL 102 mmol/L (100-108); CREATININE 1.8 mg/dL (0.8-1.3); EST CRCL DRUG DOSING (CG) 41.68 mL/min; ESTIMATED GFR 41 mL/min (>60); GLUCOSE RANDOM 184 mg/dL (74-106); POTASSIUM,K 4.8 mmol/L (3.6-5.2); PROTEIN TOTAL,TP 9.2 g/dL (6.4-8.2); SODIUM,NA 140 mmol/L (140-148); TROPONIN I HIGH SENSITIVITY 7.3 pg/mL (<=60.3)
[2024-02-12] MEDS: Sodium Chloride 0.9% 80 ML IV STA (00:27)
[2024-02-12] MEDS: Iopamidol 612 MG/ML 100 ML Bottle IV STA (00:27)
[2024-02-12 01:50] VITALS: BP 155/85; PULSE 59
[2024-02-12 02:46] LABS: APPEARANCE,URINE CLEAR (CLEAR); BILIRUBIN,URINE NEGATIVE (NEGATIVE); COLOR,URINE YELLOW (YELLOW); GLUCOSE,URINE NEGATIVE (NEGATIVE); KETONES,URINE NEGATIVE (NEGATIVE); LEUKOCYTE ESTERASE,URINE NEGATIVE (NEGATIVE); NITRITE,URINE NEGATIVE (NEGATIVE); OCCULT BLOOD,URINE NEGATIVE (NEGATIVE); PH,URINE 5.5 (5.0-8.0); PROTEIN,URINE NEGATIVE (NEGATIVE); UROBILINOGEN,URINE 0.2 EU/dL (0.2-1.0)
[2024-02-12 02:58] LABS: BACTERIA,URINE FEW; EPITHELIAL CELLS,URINE RARE; RBC,URINE NOT SEEN (0-5); WBC,URINE NOT SEEN (0-5)
[2024-02-12 02:59] LABS: AMORPHOUS SEDIMENT,URINE NOT SEEN; MUCUS,URINE FEW
== END 2024-02-12 04:27 | disposition home or self-care (01) ==
LOC: JP.ED 21:06
DX: K52.9 Noninfective gastroenteritis and colitis, unspecified (principal); I25.10 Atherosclerotic heart disease of native coronary artery without angina pectoris; I10 Essential (primary) hypertension; I25.2 Old myocardial infarction; Z86.73 Personal history of transient ischemic attack (TIA), and cerebral infarction without residual deficits; Z95.5 Presence of coronary angioplasty implant and graft; Z79.82 Long term (current) use of aspirin; Z79.899 Other long term (current) drug therapy
CPT/HCPCS: 36415; 71045; 74177; 80048; 80076; 81001; 83605; 83690; 84484; 85025; 86140; 87040; 93005; 96361; 96374; 99284; J1170; J3490; J7030; Q9967; 93010; 99283

== ENCOUNTER 2024-02-14 09:54 | Emergency (ER) | payer MEDICARE ==
[2024-02-14 10:47] LABS: BASOPHILS ABSOLUTE AUTO 0.03 K/uL (0.00-0.10); BASOPHILS PERCENT AUTO 0.2 % (0.1-1.3); EOSINOPHILS ABSOLUTE AUTO 0.01 K/uL (0.00-0.40); EOSINOPHILS PERCENT AUTO 0.1 % (0.0-5.4); IMMATURE GRAN ABSOLUTE AUTO 0.08 K/uL (0.00-0.23); IMMATURE GRAN PERCENT AUTO 0.4 % (0.0-0.7); LYMPHOCYTES PERCENT AUTO 8.6 % (11.4-47.7); MEAN CORPUSCULAR HEMOGLOBIN 31.9 pg (31.6-35.5); MEAN CORPUSCULAR HGB CONC 34.7 g/dL (31.6-35.5); MEAN CORPUSCULAR VOLUME 91.9 fL (81.4-99.0); MONOCYTES PERCENT AUTO 8.6 % (3.3-12.6); NEUTROPHILS ABSOLUTE AUTO 15.23 K/uL (1.0-7.6); NEUTROPHILS PERCENT AUTO 82.1 % (40.0-78.1); PLATELET COUNT,PLT 348 K/uL (130-375); RED BLOOD CELL COUNT 5.33 M/uL (4.14-5.76); WHITE BLOOD CELL COUNT,WBC 18.6 K/uL (3.2-11.0)
[2024-02-14] MEDS: Morphine 2 MG/ML SYRINGE IVPUSH ONE (10:49)
[2024-02-14 11:08] LABS: A/G RATIO 0.9 (1.2-2.2); ALANINE AMINOTRANSFERASE,ALT 29 U/L (12-78); ALBUMIN 4.2 g/dL (3.4-5.0); ALKALINE PHOSPHATASE 87 U/L (46-116); ANION GAP 14.9 mmol/L (5.0-14.0); ASPARTATE AMNIOTRANSFERASE,AST 19 U/L (15-37); BILIRUBIN TOTAL 1.4 mg/dL (0.2-1.0); BLOOD UREA NITROGEN,BUN 39 mg/dL (7-18); CALCIUM 9.9 mg/dL (8.5-10.1); CARBON DIOXIDE,CO2 22 mmol/L (21-32); CHLORIDE,CL 103 mmol/L (100-108); CREATININE 1.7 mg/dL (0.8-1.3); ESTIMATED GFR 44 mL/min (>60); GLUCOSE RANDOM 144 mg/dL (74-106); POTASSIUM,K 3.8 mmol/L (3.6-5.2); PROTEIN TOTAL,TP 8.8 g/dL (6.4-8.2); SODIUM,NA 140 mmol/L (140-148)
[2024-02-14] MEDS: Sodium Chloride 0.9% 1,000 ML IV ONE (11:29)
[2024-02-14] MEDS: fentaNYL 50 MCG/ML SDV IVPUSH ONE (11:34)
[2024-02-14 11:53] VITALS: PULSE 75
[2024-02-14 12:25] VITALS: BP 181/73
[2024-02-14] MEDS: Sodium Chloride 0.9% 10 ML Syringe FLUSH ONE (13:36)
[2024-02-14] MEDS: Iopamidol 612 MG/ML 100 ML Bottle IV PRN (13:36)
[2024-02-14] MEDS: Sodium Chloride 0.9% 80 ML IV SCH (13:36)
[2024-02-14 13:44] LABS: APPEARANCE,URINE CLEAR (CLEAR); BILIRUBIN,URINE NEGATIVE (NEGATIVE); COLOR,URINE YELLOW (YELLOW); GLUCOSE,URINE NEGATIVE (NEGATIVE); KETONES,URINE TRACE mg/dL (NEGATIVE); LEUKOCYTE ESTERASE,URINE NEGATIVE (NEGATIVE); NITRITE,URINE NEGATIVE (NEGATIVE); OCCULT BLOOD,URINE NEGATIVE (NEGATIVE); PH,URINE 5.5 (5.0-8.0); PROTEIN,URINE TRACE mg/dL (NEGATIVE); UROBILINOGEN,URINE 0.2 EU/dL (0.2-1.0)
[2024-02-14 13:53] LABS: AMORPHOUS SEDIMENT,URINE NOT SEEN; BACTERIA,URINE NOT SEEN; EPITHELIAL CELLS,URINE NOT SEEN; MUCUS,URINE NOT SEEN; RBC,URINE 0-5 (0-5); WBC,URINE 0-5 (0-5)
== END 2024-02-14 16:10 | disposition home or self-care (01) ==
LOC: JP.ED 09:54
DX: R10.13 Epigastric pain (principal); I10 Essential (primary) hypertension; I25.10 Atherosclerotic heart disease of native coronary artery without angina pectoris; I25.2 Old myocardial infarction; F17.210 Nicotine dependence, cigarettes, uncomplicated; Z95.5 Presence of coronary angioplasty implant and graft; Z86.73 Personal history of transient ischemic attack (TIA), and cerebral infarction without residual deficits; Z79.899 Other long term (current) drug therapy; Z79.01 Long term (current) use of anticoagulants; Z79.82 Long term (current) use of aspirin
CPT/HCPCS: 36415; 74177; 80053; 81001; 83605; 83690; 85025; 96361; 96374; 96375; 99284; J2270; J3010; J3490; J7030; Q9967; 99283

== ENCOUNTER 2025-05-29 00:23 | Emergency (ER) | payer MEDICARE ==
[2025-05-29 00:56] LABS: PLATELET COUNT,PLT 364 K/uL (130-375); RED BLOOD CELL COUNT 4.29 M/uL (4.14-5.76); WHITE BLOOD CELL COUNT,WBC 13.7 K/uL (3.2-11.0)
[2025-05-29 01:05] LABS: A/G RATIO 1.0 (1.2-2.2); ALANINE AMINOTRANSFERASE,ALT 39 U/L (12-78); ASPARTATE AMNIOTRANSFERASE,AST 23 U/L (15-37); BILIRUBIN TOTAL 0.5 mg/dL (0.2-1.0); BLOOD UREA NITROGEN,BUN 22 mg/dL (7-18); CARBON DIOXIDE,CO2 28 mmol/L (21-32); CHLORIDE,CL 105 mmol/L (100-108); CREATININE 1.1 mg/dL (0.8-1.3); ESTIMATED GFR 74 mL/min (>60); GLUCOSE RANDOM 110 mg/dL (74-106); POTASSIUM,K 3.9 mmol/L (3.6-5.2); PROTEIN TOTAL,TP 7.4 g/dL (6.4-8.2); SODIUM,NA 142 mmol/L (140-148)
[2025-05-29 01:10] LABS: ATYPICAL LYMPHOCYTES FEW; BAND ABSOLUTE MAN 0.14 K/uL; BAND PERCENT MAN 1 % (5-11); EOSINOPHILS ABSOLUTE MAN 0.14 K/uL (0.00-0.40); EOSINOPHILS PERCENT MAN 1 % (2-4); LYMPHOCYTES ABSOLUTE MAN 4.38 K/uL (0.8-3.3); LYMPHOCYTES PERCENT MAN 32 % (24-44); MONOCYTES ABSOLUTE MAN 1.78 K/uL (0.20-0.90); MONOCYTES PERCENT MAN 13 % (2-6); NEUTROPHILS ABSOLUTE MAN 7.26 K/uL (1.0-7.6); SEG NEUTROPHILS PERCENT MAN 53 % (36-66)
[2025-05-29] MEDS: Iopamidol 755 Mg/ML 100 ML Bottle IV SCH (02:18)
[2025-05-29] MEDS: Sodium Chloride 0.9% 10 ML Syringe FLUSH PRN (02:19)
[2025-05-29 03:05] VITALS: BP 139/76; PULSE 65
== END 2025-05-29 07:05 ==
LOC: JP.ED 00:23
DX: I63.9 Cerebral infarction, unspecified (principal); I25.10 Atherosclerotic heart disease of native coronary artery without angina pectoris; I25.2 Old myocardial infarction; I10 Essential (primary) hypertension; Z95.5 Presence of coronary angioplasty implant and graft; Z79.01 Long term (current) use of anticoagulants; Z79.899 Other long term (current) drug therapy
CPT/HCPCS: 36415; 70450; 70496; 70498; 80053; 82947; 85025; 93005; 99285; Q9967